=== PATIENT | female | born 1965 | race Caucasian/White ===

== ENCOUNTER → 2018-01-22 15:38 | Outpatient (CLI) | payer BC, SELFPAY ==
--- NOTE | 2018-01-22 10:00 | FLU_PTH ---
PATIENT: AGUS DESOUZA LOC: [facility] U#:[id number] AGE/SX: 59/F ROOM: RE01/22/[address]: Dr. Shyanne Rock MD : 1965 BED: DIS: SPEC #: [id number] RECD: 01/22/18 15:20 STATUS: EZIO NEENA #: [id number] STARLA: 01/22/18 10:[address]: Shyanne Rock DEPT: CYTOLOGY RECD BY: Jerman Hill Tissues: A - Thyroid gland, NOS B - Thyroid gland, NOS C - Thyroid gland, NOS Procedures: Pap Stain (control) Special Stain Group II Surgery Specimen Level IV Cell Block Cytospin Fluid Cytology Other HEADER OPERATION: Ultrasound-guided fine needle operation of bilateral thyroid PRE-OP DIAGNOSIS: Thyroid nodules TISSUE SUBMITTED: A - FNA left thyroid fluid for cytology, B - FNA left thyroid 6 slides, C - FNA right thyroid 8 slides DIAGNOSIS CYTOLOGY A. Left thyroid fluid, FNA (cytospin and cell block): Benign follicular cells noted. B. Left thyroid nodule, FNA (smears): Consistent with benign follicular nodule. Adequate for evaluation. C. Right thyroid nodule, FNA (smears): Consistent with benign follicular nodule, favor colloid nodule. Adequate for evaluation. See comment. SJ:rg 01/24/18 COMMENT Correlation with clinical, radiologic studies and appropriate follow up are necessary. Please also correlate with corresponding surgical specimen ([id number]), right thyroid nodule, needle core biopsy with diagnosis of consistent with colloid nodule. CYTOLOGY STUDY Slides are reviewed. CYTOLOGY GROSS A - Received is 80 ml of cloudy beige fluid labeled with the patient's name and and designated per the requisition as left thyroid. Submitted for cytology preparation including cell block. B - Received are six smears labeled with the patient's name and designated per the requisition as left thyroid. Submitted for staining. C - Received are eight smears labeled with the patient's name and designated per the requisition as right thyroid. Submitted for staining. / 01/23/18 TC:5 CPT: 21582, 25232, 52638 x2
--- NOTE | 2018-01-22 10:00 | THYROID_PTH ---
PATIENT: AGUS DESOUZA LOC: [facility] U#:[id number] AGE/SX: 59/F ROOM: RE01/22/[address]: Dr. Shyanne Rock MD : 1965 BED: DIS: SPEC #: [id number] RECD: 01/22/18 15:20 STATUS: EZIO NEENA #: [id number] STARLA: 01/22/18 10:[address]: Shyanne Rock DEPT: SURGICAL PATHOLOGY RECD BY: Jerman Hill Tissues: Thyroid gland, NOS Procedures: Surgery Specimen Level IV HEADER OPERATION: Ultrasound-guided fine needle aspiration of bilateral thyroid PRE-OP DIAGNOSIS: Thyroid nodules TISSUE SUBMITTED: FNA, right thyroid needle core biopsy MICROSCOPIC DIAGNOSIS Right thyroid nodule, core biopsy: Consistent with benign colloid nodule. See comment. ZURDO:mikey 01/24/18 COMMENT Correlation with clinical, radiologic findings and appropriate follow up are necessary. Please correlate with corresponding cytology ([id number]). MICROSCOPIC DESCRIPTION Slides are reviewed. GROSS DESCRIPTION Received in fixative is one container labeled with the patient's name and designated biopsy right thyroid. The specimen consists of multiple irregular fragments of perez soft tissue that in aggregate measure 1.5 x 0.1 x <0.1 cm. The specimen is totally submitted in one cassette. / SJ:rg 01/23/18 TC:5 [facility]: [id number]
== END ==
PROVIDERS: Referring Provider Surgery; Visit Provider Surgery
DX: E04.1 Nontoxic single thyroid nodule (principal)
CPT/HCPCS: 88108; 88161; 88305; 88307; 88313

== ENCOUNTER → 2023-04-07 | Outpatient (CLI) | payer OTHER, SELFPAY ==
[2023-04-07 11:12] LABS: Mucous, Urine 0 SEEN /hpf (<or=2+)
--- OUTSIDE RECORDS SUMMARY | 2023-04-07 12:20 | XMS RPT_ITS | CCD ---
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 Name Role Phone Renny VARGAS, Sylvia Primary Care Provider Kenia HEDIS MANAGER.Sherry HARMON Primary Care Provider Kenia HEDIS MANAGER.Sherry HARMON Primary Care Provider Kenia HEDIS MANAGER.Sherry HARMON Primary Care Provider Rodrigo Panchal Shun Unavailable [phone] Rahel VARGAS, Gertrudis Unavailable GERTRUDIS BANDA Attending Unavailable OLDER, CARMELITA Referring Unavailable GANTA, SYLVIA Primary Care Unavailable KENIA, SHERRY M Referring Unavailable KENIA, SHERRY M Primary Care Unavailable GANTA, SYLVIA Primary Care Unavailable OLDER, CARMELITA Attending Unavailable GANTA, SYLVIA Primary Care Unavailable OLDER, CARMELITA Referring Unavailable GANTA, SYLVIA Primary Care Unavailable OLDER, CARMELITA Referring Unavailable GANTA, SYLVIA Primary Care Unavailable KENIA, SHERRY M Primary Care Unavailable KENIA, SHERRY M Attending Unavailable KENIA, SHERRY M Primary Care Unavailable KENIA, SHERRY M Referring Unavailable KENIA, SHERRY M Primary Care Unavailable KENIA, SHERRY M Referring Unavailable KENIA, SHERRY M Primary Care Unavailable KENIA, SHERRY M Attending Unavailable Allergies Allergy Classification Reported Allergen(s) Allergy Type Date of Onset Reaction(s) Facility (14 sources) Erythromycin; Translations: [ERYTHROMYCIN] Drug Allergy 09-15-2015 [facility] (14 sources) oxaprozin; Translations: [OXAPROZIN] Drug Allergy 09-22-2015 [facility] (6 sources) Penicillins; Translations: [PENICILLINS] Drug Allergy 09-15-2015 [facility] (8 sources) Penicillins Drug Allergy 09-15-2015 [facility] Medications Completed/Discontinued Medications Medication Drug Class(es) Dates Sig (Normalized) Sig (Original) brimonidine tartrate 2 mg/ml ophthalmic solution (12 sources) alpha-Adrenergic Agonist Start: 05-25-2018 brimonidine (ALPHAGAN) 0.2 % ophthalmic solution Use as directed. 0 05/25/2018 Active Problems Active Problems Problem Classification Problem Date Documented Da te Episodic/Chronic Disorders of lipid metabolism (14 sources) Dyslipidemia; Translations: [Hyperlipidemia, unspecified] Onset: 02-02-2016 Chronic Essential hypertension (20 sources) Essential hypertension; Translations: [Essential (primary) hypertension] Onset: 09-22-2015 Chronic Glaucoma (13 sources) Glaucoma; Translations: [Unspecified glaucoma] Onset: 01-09-2018 Chronic Malaise and fatigue (1 source) Fatigue; Translations: [Other fatigue] Episodic Nutritional deficiencies (2 sources) Vitamin D deficiency; Translations: [Vitamin D deficiency, unspecified] Onset: 06-29-2021 Chronic Other connective tissue disease (2 sources) Pain in right foot; Translations: [Pain in right foot] Episodic Other nutritional; endocrine; and metabolic disorders (13 sources) Morbid obesity; Translations: [Morbid (severe) obesity due to excess calories] Onset: 10-12-2018 10-12-2018 Chronic Other nutritional; endocrine; and metabolic disorders (1 source) Morbid (severe) obesity due to excess calories; Translations: [Morbid obesity (HCC)] Onset: 10-12-2018 Chronic Other screening for suspected conditions (not mental disorders or infectious disease) (8 sources) Decreased thyroid stimulating hormone level; Translations: [Other specified abnormal findings of blood chemistry] Onset: 06-29-2021 Episodic Thyroid disorders (20 sources) Multinodular goiter; Translations: [Nontoxic multinodular goiter] Onset: 11-20-2018 Chronic Past or Other Problems Problem Classification Problem Date Documented Da te Episodic/Chronic Diabetes mellitus without complication (2 sources) Prediabetes; Translations: [Prediabetes] Onset: 06-29-2021 Episodic Immunizations and screening for infectious disease (8 sources) Viral screening status; Translations: [Encounter for screening for other viral diseases] Onset: 06-29-2021 Episodic Other connective tissue disease (1 source) Pain in right foot; Translations: [Right foot pain] Onset: 11-01-2021 Episodic Results Test Name Value Interpretation Reference Range Facil ity Vital Signs Date Time Vital Sign Value Performing Clinician Sunny sierra 05-11-2022 08:23-0500 Body height 161.3 cm Sherry Kenia HEDIS MANAGER.MANAGER TECHNOLOGY Work Phone: [facility] 05-11-2022 08:23-0500 Body temperature 98.2 [degF] Sherry Kenia HEDIS MANAGER.MANAGER TECHNOLOGY Work Phone: [facility] 05-11-2022 08:23-0500 Body weight 110.68 kg Sherry Kenia HEDIS MANAGER.MANAGER TECHNOLOGY Work Phone: [facility] 05-11-2022 08:23-0500 Diastolic blood pressure 70 mm[Hg] Sherry Kenia HEDIS MANAGER.MANAGER TECHNOLOGY Work Phone: [facility] 05-11-2022 08:23-0500 Heart rate 81 /min Sherry Kenia HEDIS MANAGER.MANAGER TECHNOLOGY Work Phone: [facility] 05-11-2022 08:23-0500 Respiratory rate 18 /min Sherry Kenia HEDIS MANAGER.MANAGER TECHNOLOGY Work Phone: [facility] 05-11-2022 08:23-0500 SaO2% (BldA) [Mass fraction] 100 % Sherry Kenia HEDIS MANAGER.MANAGER TECHNOLOGY Work Phone: [facility] 05-11-2022 08:23-0500 Systolic blood pressure 128 mm[Hg] Sherry Kenia HEDIS MANAGER.MANAGER TECHNOLOGY Work Phone: [facility] 11-01-2021 08:26-0400 Diastolic blood pressure 76 mm[Hg] Sherry Kenia HEDIS MANAGER.MANAGER TECHNOLOGY Work Phone: [facility] 11-01-2021 08:26-0400 Systolic blood pressure 120 mm[Hg] Sherry Kenia HEDIS MANAGER.MANAGER TECHNOLOGY Work Phone: [facility] 11-01-2021 07:58-0400 Body height 165.1 cm Sherry Kenia HEDIS MANAGER.MANAGER TECHNOLOGY Work Phone: [facility] 11-01-2021 07:58-0400 Body temperature 98.2 [degF] Sherry Kenia HEDIS MANAGER.MANAGER TECHNOLOGY Work Phone: [facility] 11-01-2021 07:58-0400 Body weight 108.05 kg Sherry Kenia HEDIS MANAGER.MANAGER TECHNOLOGY Work Phone: [facility] 11-01-2021 07:58-0400 Heart rate 96 /min Sherry Kenia HEDIS MANAGER.MANAGER TECHNOLOGY Work Phone: [facility] 11-01-2021 07:58-0400 Respiratory rate 18 /min Sherry Kenia HEDIS MANAGER.MANAGER TECHNOLOGY Work Phone: [facility] 11-01-2021 07:58-0400 SaO2% (BldA) [Mass fraction] 98 % Sherry Kenia HEDIS MANAGER.MANAGER TECHNOLOGY Work Phone: [facility] 08-24-2021 09:24-0400 Diastolic blood pressure 85 mm[Hg] Gertrudis Banda MD Work Phone: [facility] 08-24-2021 09:24-0400 Systolic blood pressure 123 mm[Hg] Gertrudis Banda MD Work Phone: [facility] 08-24-2021 09:02-0400 Body weight 106.59 kg Gertrudis Banda MD Work Phone: [facility] 08-24-2021 09:02-0400 Heart rate 96 /min Gertrudis Banda MD Work Phone: [facility] 08-24-2021 09:02-0400 SaO2% (BldA) [Mass fraction] 97 % Gertrudis Banda MD Work Phone: [facility] 07-08-2021 10:49-0400 Diastolic blood pressure 88 mm[Hg] Mi Nurse Work Phone: [facility] 07-08-2021 10:49-0400 Heart rate 96 /min Mi Nurse Work Phone: [facility] 07-08-2021 10:49-0400 Systolic blood pressure 128 mm[Hg] Mi Nurse Work Phone: [facility] 06-23-2021 14:56-0400 Body weight 106.59 kg Carmelita Older HEDIS MANAGER.MANAGER TECHNOLOGY Work Phone: [facility] 06-23-2021 14:56-0400 Diastolic blood pressure 76 mm[Hg] Carmelita Older HEDIS MANAGER.MANAGER TECHNOLOGY Work Phone: [facility] 06-23-2021 14:56-0400 Heart rate 84 /min Carmelita Older HEDIS MANAGER.MANAGER TECHNOLOGY Work Phone: [facility] 06-23-2021 14:56-0400 Respiratory rate 16 /min Carmelita HEDIS MANAGER.MANAGER TECHNOLOGY Work Phone: [facility] 06-23-2021 14:56-0400 Systolic blood pressure 128 mm[Hg] Carmelita Older HEDIS MANAGER.MANAGER TECHNOLOGY Work Phone: [facility] Encounters Encounter Date Encounter Type Care Provider Facility Start: 05-11-2022 End: 05-11-2022 ambulatory SHERRY AQUINO Facility:[facility] Start: 05-11-2022 Encounter for genera l adult medical examination without abnormal findings SHERRY AQUINO [facility] Start: 05-11-2022 End: 05-11-2022 Patient encounter procedure Sherry Aquino HEDIS MANAGER.MANAGER TECHNOLOGY Work Phone: [facility] Procedures Date Procedure Procedure Detail Performing Clinician Start: 05-11-2022 PFIZER-BIONTECH COVI D-19 BIVALENT BOOSTER VACCINE, AGE 12+ YR Sherry Aquino HEDIS MANAGER.MANAGER TECHNOLOGY Work Phone: Start: 05-09-2022 Mammography Sherry davis HEDIS MANAGER.MANAGER TECHNOLOGY Work Phone: Start: 11-01-2021 Radex foot complete minimum 3 views Sherry Aquino HEDIS MANAGER.MANAGER TECHNOLOGY Work Phone: Start: 11-01-2021 Regalister COVI D-19 VACCINE, AGE 12+ YR (DUKES TOP) Sherry Aquino HEDIS MANAGER.MANAGER TECHNOLOGY Work Phone: Start: 11-11-2020 Adult depression scr eening assessment Carmelita Older HEDIS MANAGER.MANAGER TECHNOLOGY Work Phone: Start: 11-09-2020 Mammography Carmelita Older HEDIS MANAGER.MANAGER TECHNOLOGY Work Phone: Plan of Treatment Date Care Activity Detail Author Start: 06-24-2031 Urine microalbumin profile DTA P,TDAP,TD (2 - Td or Tdap) [facility] Start: 04-25-2027 LIPID SCREEN LIPID SCREEN [facility] Start: 06-29-2026 LIPID SCREEN LIPID SCREEN [facility] Start: 04-25-2025 DIABETES SCREEN DIABETES SCREEN [facility] Start: 08-04-2024 LIPID SCREEN LIPID SCREEN [facility] Start: 06-29-2024 DIABETES SCREEN DIABETES SCREEN [facility] Start: 05-11-2023 ANNUAL PCP TEAM TRUCK DRIVING INSTRUCTOR OMARI DISEASE VISIT ANNUAL PCP TEAM CHRONIC DISEASE VISIT [facility] Start: 05-11-2023 BP CONTROLLED (<130/80) BP CONTROLLE D (<130/80) [facility] Start: 05-09-2023 Mammography MAMMOGRAM [facility] Start: 01-16-2023 HPV TESTING HPV TESTING [facility] Start: 01-16-2023 PAP TESTING PAP TESTING [facility] Start: 11-01-2022 ANNUAL PCP TEAM TRUCK DRIVING INSTRUCTOR OMARI DISEASE VISIT ANNUAL PCP TEAM CHRONIC DISEASE VISIT [facility] Start: 11-01-2022 BP CONTROLLED (<130/80) BP CONTROLLE D (<130/80) [facility] Start: 08-04-2022 DIABETES SCREEN DIABETES SCREEN [facility] Start: 06-29-2022 COLORECTAL CANCER SCREENING COLORECTAL CANCER SCREENING [facility] Start: 06-29-2022 FECAL OCCULT BLOOD FECAL OCCULT BLOO D [facility] Start: 06-23-2022 ANNUAL PCP TEAM TRUCK DRIVING INSTRUCTOR OMARI DISEASE VISIT ANNUAL PCP TEAM CHRONIC DISEASE VISIT [facility] Start: 06-23-2022 BP CONTROLLED (<130/80) BP CONTROLLE D (<130/80) [facility] Start: 06-23-2022 SHINGRIX VACCINE (1 of 2) COPE GRIX VACCINE (1 of 2) [facility] Immunizations Immunization Date Immunization Notes Care Provider Aren porter 05-11-2022 COVID-19 booster vaccine, age 12+ yr, bivalent (PFIZER-BIONTECH) Sherry Kenia HEDIS MANAGER.MANAGER TECHNOLOGY Work Phone: [facility] 01-15-2022 influenza, injectabl e, quadrivalent, contains preservative Sherry Kenia HEDIS MANAGER.MANAGER TECHNOLOGY Work Phone: [facility] 11-01-2021 COVID-19 vaccine, ag e 12+ yr (PFIZER-BIONTECH - DUKES TOP) Sherry Kenia HEDIS MANAGER.MANAGER TECHNOLOGY Work Phone: [facility] 06-23-2021 tetanus toxoid, redu ganesh diphtheria toxoid, and acellular pertussis vaccine, adsorbed Carmelita Older HEDIS MANAGER.MANAGER TECHNOLOGY Work Phone: [facility] 05-08-2020 COVID-19 vaccine, fu ll dose (MODERNA) Carmelita Older HEDIS MANAGER.MANAGER TECHNOLOGY Work Phone: [facility] 04-10-2019 COVID-19 vaccine, fu ll dose (MODERNA) Carmelita Older HEDIS MANAGER.MANAGER TECHNOLOGY Work Phone: [facility] Payers Date Payer Category Payer Unknown [id number] 2022 Unknown [id number] 2018 Private Health Insurance [facility] CHOICE PLUS [id number] 2018-Present [phone] [address] [place] [address] O [id number] 2018 Private Health Insurance [facility] CHOICE PLUS [id number] 2018-Present [phone] [address] [place] [address] O [id number] 2018 Unknown [id number] Social History Date Type Detail Facility Start: 09-15-2015 End: 01-22-2018 Tobacco smoking status NHIS Ex-smoker [facility] Work Phone: End: 01-22-1993 History of tobacco use Current smoker [facility] Work Phone: Start: 09-15-2015 End: 01-22-2018 Tobacco use and exposure Smokeless tobacco non-user [facility] Work Phone: Start: 06-23-2021 End: 05-11-2022 Alcohol intake Current drinker of alcohol (finding) [facility] Start: 11-11-2020 End: 06-22-2021 History SDOH Alcohol Frequency 2 [facility] Start: 11-11-2020 End: 06-22-2021 History SDOH Alcohol Std Drinks 1 [facility] Start: 09-15-2015 History SDOH Alcohol Comment Rarely [facility] Start: 11-11-2020 History SDOH Social Connections Phone 5 [facility] Start: 11-11-2020 History SDOH Social Connections [facility] 3 [facility] Start: 05-12-2019 Education 12 [facility] Start: 1965 Sex Assigned At Not on file [facility] Start: 08-14-2021 End: 11-01-2021 Exposure to SARS-CoV-2 (event) Not sure [facility] End: 01-22-1993 History of tobacco use Cigarette Smoker [facility] Clinical Notes 06-11-2021 to 05-11-2022 Patient InstructionsChaglen Aquino APRN.MANAGER TECHNOLOGY - 05/11/2022 8:48 AM ESTTelephone Encounter - Elle Melendez MA - 05/10/2022 3:13 PM ESTTelephone Encounter - Elle Melendez MA - 05/10/2022 3:11 PM EST Note Date & Type Note Facility 05-11-2022 Note HNO ID: [id number] Author: Sherry Aquino APRN.MANAGER TECHNOLOGY Service: ? Author Type: Nurse Practitioner Type: Progress Notes Filed: 05/11/2022 12:43 PM Note Text: SUBJECTIVE: Agus Gutierrez is a 56 year old female who presents for Wellness exam PMH HTN, HLD, glaucoma, subclinical hyperthyroidism. Patient denies changes in health since last office visit. Reports feeling well. Denies concerns or complaints today. I reviewed her past medical, surgical, social, and family histories today and updated chart. Allergies, chronic medications, and supplements were also reviewed and her list is now up to date. HTN: Ms. Gutierrez indicates that she is feeling well and denies any symptoms referable to elevated blood pressure. Specifically denies headache, chest pain, palpitations, dyspnea, peripheral edema, claudication symptoms, orthopnea, fatigue, and PND. Patient denies any side effects of her medication(s) and is compliant with their regimen. She does check BP's away from this office with average BP's in the 130-140s/60-90s range. Agus works out regularly 3 times per week with Yoga. She watches her diet for sodium, low fat and low cholesterol some of the time. She is taking HCTZ 12.5 mg and lisinopril 40 mg daily. Last 3 Encounter BP Readings: Date: BP: 05/11/2022 128/70 11/01/2021 120/76 08/24/2021 123/85 Glaucoma: she is seeing opth Dr Panchal in [place] every 3 months. She is taking her eye drops daily. Hyperthyroid and thyroid nodules: she has seen endo for this. She did see Dr Banda 08/24/22. She had FNA fall 2017 which was benign. Repeat US was ordered but never completed. She was to follow up in 3 months and never did. Preventative. She would like her COVID booster today. She is up to date with her mammogram. She has never had a colonoscopy and does not want one. She was agreeable to cologuard. PAST MEDICAL HISTORY Diagnosis Date Disorder of thyroid Glaucoma Herniated lumbar disc without myelopathy Hypertension PAST SURGICAL HISTORY Procedure Laterality Date LAMINECTOMY W/O FFD 04/04 VERT SEG LUMBAR 1991 Laminectomy, lumbar S PROBE PERC LUMBAR DISCECTOMY 1991 Social History Tobacco Use Smoking status: Former Types: Cigarettes Quit date: 01/22/1993 Years since quittin.3 Smokeless tobacco: Never Vaping Use Vaping Use: Never used Substance Use Topics Alcohol use: Yes Comment: Rarely Drug use: No Family history reviewed. ALLERGIES Allergen Reactions Daypro [Oxaprozin] Hives Erythromycin Hives Penicillins Hives Current Outpatient Medications Medication Sig hydroCHLOROthiazide (HYDRODIURIL, ESIDRIX) 12.5 mg capsule Take 1 capsule by mouth once daily. lisinopril (ZESTRIL, PRINIVIL) 40 mg tablet Take 1 tablet by mouth once daily. brimonidine (ALPHAGAN) 0.2 % ophthalmic solution Use as directed. timolol maleate (TIMOPTIC) 0.25 % ophthalmic solution Use as directed latanoprost (XALATAN) 0.005 % ophthalmic solution Use 1 Drop in both eyes daily at bedtime. TO AFFECTED EYE(S) No current facility-administered medications for this visit. Review of Systems Constitutional: Negative for chills, diaphoresis, fever, malaise/fatigue and weight loss. HENT: Negative. Negative for congestion, ear pain, sore throat and tinnitus. Eyes: Negative for blurred vision, double vision, photophobia and pain. Respiratory: Negative for cough, sputum production, shortness of breath and wheezing. Cardiovascular: Negative for chest pain, palpitations, orthopnea and leg swelling. Gastrointestinal: Negative for abdominal pain, blood in stool, constipation, diarrhea, heartburn, melena, nausea and vomiting. Genitourinary: Negative for dysuria, frequency, hematuria and urgency. Musculoskeletal: Negative for back pain, falls, joint pain, myalgias and neck pain. Skin: Negative for itching and rash. Neurological: Negative for dizziness, tingling, tremors, sensory change, speech change, focal weakness, weakness and headaches. Endo/Heme/Allergies: Negative for environmental allergies and polydipsia. Does not bruise/bleed easily. Psychiatric/Behavioral: Negative for depression and substance abuse. The patient is not nervous/anxious and does not have insomnia. BP 128/70 Pulse 81 Temp (Src) 98.2 (Oral) Resp 18 Ht 5' 3.5 (1.61m) Wt 244 lb (110.7kg) SpO2 100% BMI 42.54 kg/(m2). Physical Exam Vitals and nursing note reviewed. Constitutional: General: She is not in acute distress. Appearance: Normal appearance. She is not diaphoretic. HENT: Head: Normocephalic and atraumatic. Right Ear: External ear normal. Left Ear: External ear normal. Nose: Nose normal. Mouth/Throat: Pharynx: No oropharyngeal exudate. Eyes: General: Lids are normal. No scleral icterus. Right eye: No discharge. Left eye: No discharge. Conjunctiva/sclera: Conjunctivae normal. Pupils: Pupils are equal, round, and reactive to light. Neck: Vascular: N (more content not included)... [facility] 05-11-2022 Instructions Sherry Aquino APRN.MANAGER TECHNOLOGY - 05/11/2022 9:20 AM EST ASSESSMENT/PLAN: 1. Wellness examination - ICD9: V70.0, ICD10: Z00.00 (primary diagnosis) - Counseled on healthy diet and regular exercise - Calcium intake with supplements or by diet of 1000 mg/day for under 50, 2364-2454 mg/day for 50+ - Discussed need and benefit for weight loss. BMI 42.54 kg/(m^2) - Colorectal cancer screening recommended - agrees to Cologuard - Depression screening tool completed and reviewed with patient. Based on score and interview, patient is not at risk for depression and recommended no further intervention at this time. - Follow up for annual exam in one year 2. Essential hypertension with goal blood pressure less than 140/90 - ICD9: 401.9, ICD10: I10 - good control - Continue current medication(s) - Encouraged dietary sodium restriction/DASH diet - Recommended regular aerobic exercise. - Recommend home blood pressure monitoring, to bring results in on next visit - Discussed need and benefit for weight loss. - Reviewed risks of HTN and principles of treatment - Goal of BP <130/80 - Recommended no refined sugar, low refined starch, healthy oil intake (olive oil), healthy protein (fish) along the lines of the Mediterranean diet. 3. Multiple thyroid nodules - ICD9: 241.1, ICD10: E04.2 - Chronic, follow up for testing as ordered by Dr Banda. Call and follow up with dr Banda. 4. Subclinical hyperthyroidism - ICD9: 242.90, ICD10: E05.90 - See above 5. Encounter for immunization - ICD9: V03.89, ICD10: Z23 - PFIZER-BIONTECH COVID-19 BIVALENT BOOSTER VACCINE, AGE 12+ YR - given today in office 6. Colon cancer screening - ICD9: V76.51, ICD10: Z12.11 - COLOGUARD Sherry M Kenia, HEDIS MANAGER.MANAGER TECHNOLOGY documented in this encounter [facility] 05-11-2022 History of Present illness Narrative SUBJECTIVE: Agus Gutierrez is a 56 year old female who presents for Wellness exam PM HTN, HLD, glaucoma, subclinical hyperthyroidism. Patient denies changes in health since last office visit. Reports feeling well. Denies concerns or complaints today. I reviewed her past medical, surgical, social, and family histories today and updated chart. Allergies, chronic medications, and supplements were also reviewed and her list is now up to date. HTN: Ms. Gutierrez indicates that she is feeling well and denies any symptoms referable to elevated blood pressure. Specifically denies headache, chest pain, palpitations, dyspnea, peripheral edema, claudication symptoms, orthopnea, fatigue, and PND. Patient denies any side effects of her medication(s) and is compliant with their regimen. She does check BP's away from this office with average BP's in the 130-140s/60-90s range. Agus works out regularly 3 times per week with Yoga. She watches her diet for sodium, low fat and low cholesterol some of the time. She is taking HCTZ 12.5 mg and lisinopril 40 mg daily. Last 3 Encounter BP Readings: Date: BP: 05/11/2022 128/70 11/01/2021 120/76 08/24/2021 123/85 Glaucoma: she is seeing opth Dr Panchal in [place] every 3 months. She is taking her eye drops daily. Hyperthyroid and thyroid nodules: she has seen endo for this. She did see Dr Banda 08/24/22. She had FNA fall 2017 which was benign. Repeat US was ordered but never completed. She was to follow up in 3 months and never did. Preventative. She would like her COVID booster today. She is up to date with her mammogram. She has never had a colonoscopy and does not want one. She was agreeable to rudi. PAST MEDICAL HISTORY Diagnosis Date Disorder of thyroid Glaucoma Herniated lumbar disc without myelopathy Hypertension PAST SURGICAL HISTORY Procedure Laterality Date LAMINECTOMY W/O FFD 04/04 VERT SEG LUMBAR 1991 Laminectomy, lumbar S PROBE PERC LUMBAR DISCECTOMY 1991 Social History Tobacco Use Smoking status: Former Types: Cigarettes Quit date: 01/22/1993 Years since quittin.3 Smokeless tobacco: Never Vaping Use Vaping Use: Never used Substance Use Topics Alcohol use: Yes Comment: Rarely Drug use: No Family history reviewed. ALLERGIES Allergen Reactions Daypro [Oxaprozin] Hives Erythromycin Hives Penicillins Hives Current Outpatient Medications Medication Sig hydroCHLOROthiazide (HYDRODIURIL, ESIDRIX) 12.5 mg capsule Take 1 capsule by mouth once daily. lisinopril (ZESTRIL, PRINIVIL) 40 mg tablet Take 1 tablet by mouth once daily. brimonidine (ALPHAGAN) 0.2 % ophthalmic solution Use as directed. timolol maleate (TIMOPTIC) 0.25 % ophthalmic solution Use as directed latanoprost (XALATAN) 0.005 % ophthalmic solution Use 1 Drop in both eyes daily at bedtime. TO AFFECTED EYE(S) No current facility-administered medications for this visit. Review of Systems Constitutional: Negative for chills, diaphoresis, fever, malaise/fatigue and weight loss. HENT: Negative. Negative for congestion, ear pain, sore throat and tinnitus. Eyes: Negative for blurred vision, double vision, photophobia and pain. Respiratory: Negative for cough, sputum production, shortness of breath and wheezing. Cardiovascular: Negative for chest pain, palpitations, orthopnea and leg swelling. Gastrointestinal: Negative for abdominal pain, blood in stool, constipation, diarrhea, heartburn, melena, nausea and vomiting. Genitourinary: Negative for dysuria, frequency, hematuria and urgency. Musculoskeletal: Negative for back pain, falls, joint pain, myalgias and neck pain. Skin: Negative for itching and rash. Neurological: Negative for dizziness, tingling, tremors, sensory change, speech change, focal weakness, weakness and headaches. Endo/Heme/Allergies: Negative for environmental allergies and polydipsia. Does not bruise/bleed easily. Psychiatric/Behavioral: Negative for depression and substance abuse. The patient is not nervous/anxious and does not have insomnia. BP 128/70 Pulse 81 Temp (Src) 98.2 (Oral) Resp 18 Ht 5' 3.5 (1.61m) Wt 244 lb (110.7kg) SpO2 100% BMI 42.54 kg/(m^2). Physical Exam Vitals and nursing note reviewed. Constitutional: General: She is not in acute distress. Appearance: Normal appearance. She is not diaphoretic. HENT: Head: Normocephalic and atraumatic. Right Ear: External ear normal. Left Ear: External ear normal. Nose: Nose normal. Mouth/Throat: Pharynx: No oropharyngeal exudate. Eyes: General: Lids are normal. No scleral icterus. Right eye: No discharge. Left eye: No discharge. Conjunctiva/sclera: Conjunctivae normal. Pupils: Pupils are equal, round, and reactive to light. Neck: Vascular: Normal carotid pulses. No carotid bruit. Cardiovascular: Rate and Rhythm: Normal rate and regular rhythm. Pulses: Normal pulses. Heart sounds: Normal heart sounds, S1 normal and S2 normal. No murmur heard. No friction rub. No gallop. Pulmonary: Effort: Pulmonary effort is normal. No accessory muscle usage or respiratory distress. Breath sounds: Normal breath sounds. No decreased breath sounds, wheezing, rhonchi or rales. Chest: Chest wall: No tenderness. Abdominal: General: Bowel sounds are normal. There is no distension. Palpations: Abdomen is soft. Tenderness: There is no abdominal tenderness. Musculoskeletal: General: No tenderness. Normal range of motion. Cervical back: Normal range of motion and neck supple. Skin: General: Skin is warm and dry. Coloration: Skin is not pale. Findings: No erythema or rash. Nails: There is no clubbing. Neurological: Mental Status: She is alert and oriented to person, place, and time. Sensory: Sensation is intact. Motor: Motor function is intact. No abnormal muscle tone. Coordination: Coordination normal. Gait: Gait is intact. Deep Tendon Reflexes: Reflexes are normal and symmetric. Psychiatric: Mood and Affect: Mood and affect normal. Behavior: Behavior normal. Thought Content: Thought content normal. Cognition and Memory: Memory normal. Judgment: Judgment normal. Component Latest Ref Rng & Units 04/25/2022 Glucose 74 - 99 mg/dL 110 (H) BUN 7 - 21 mg/dL 17 Creatinine 0.58 - 0.96 mg/dL 0.81 Sodium 136 - 144 mmol/L 138 Potassium 3.7 - 5.1 mmol/L 4.4 Chloride 97 - 105 mmol/L 101 CO2 22 - 30 mmol/L 29 Anion Gap 9 - 18 mmol/L 8 (L) Calcium 8.5 - 10.2 mg/dL 9.9 eGFR >=60 mL/min/1.73m 84 Cholesterol, Total <200 mg/dL 210 (H) Triglyceride <150 mg/dL 113 HDL Cholesterol >39 mg/dL 55 Non HDL Cholesterol <130 mg/dL 155 (H) Fasting Time hrs 10 VLDL Cholesterol <30 mg/dL 23 TC:HDL Ratio <5.10 3.82 LDL Cholesterol <100 mg/dL 132 (H) LDL:HDL Ratio <2.54 2.40 Hemoglobin A1C 4.3 - 5.6 % 6.2 (H) Estimated Average Glucose mg/dL 131 TSH 0.270 - 4.200 mIU/L <0.005 (L) ASSESSMENT/PLAN: 1. Wellness examination - ICD9: V70.0, ICD10: Z00.00 (primary diagnosis) - Counseled on healthy diet and regular exercise - Calcium intake with supplements or by diet of 1000 mg/day for under 50, 2134-4294 mg/day for 50+ - Discussed need and benefit for weight loss. BMI 42.54 kg/(m^2) - Colorectal cancer screening recommended - agrees to Cologuard - Depression screening tool completed and reviewed with patient. Based on score and interview, patient is not at risk for depression and recommended no further intervention at this time. - Follow up for annual exam in one year 2. Essential hypertension with goal blood pressure less than 140/90 - ICD9: 401.9, ICD10: I10 - good control - Continue current medication(s) - Encouraged dietary sodium restriction/DASH diet - Recommended regular aerobic exercise. - Recommend home blood pressure monitoring, to bring results in on next visit - Discussed need and benefit for weight loss. - Reviewed risks of HTN and principles of treatment - Goal of BP <130/80 - Recommended no refined sugar, low refined starch, healthy oil intake (olive oil), healthy protein (fish) along the lines of the Mediterranean diet. 3. Multiple thyroid nodules - ICD9: 241.1, ICD10: E04.2 - Chronic, follow up for testing as ordered by Dr Banda. Call and follow up with Dr Banda. - numbers given to patient to call and schedule 4. Subclinical hyperthyroidism - ICD9: 242.90, ICD10: E05.90 - See above 5. Encounter for immunization - ICD9: V03.89, ICD10: Z23 - [employer] COVID-19 BIVALENT BOOSTER VACCINE, AGE 12+ YR - given today in office 6. Colon cancer screening - ICD9: V76.51, ICD10: Z12.11 - declines colonoscopy, agrees to cologuard - COLOGUARD Sherry Aquino APRN.MANAGER TECHNOLOGY documented in this encounter [facility] 05-10-2022 Miscellaneous Notes Called pt left VM with results Elle Melendez MA ----- Message from Sherry Aquino APRN.MANAGER TECHNOLOGY sent at 05/10/2022 1:42 PM EST ----- Mammogram negative IMPRESSION IMPRESSION: NEGATIVE There is no mammographic evidence of malignancy. A 1 year screening mammogram is recommended. documented in this encounter [facility] 05-09-2022 Note HNO ID: [id number] Author: RT Ferdinand(R) Service: ? Author Type: Technologist Type: Progress Notes Filed: 05/09/2022 8:17 AM Note Text: Radiology Service Progress Note PATIENT NAME: Agus Gutierrez DATE OF SERVICE: May 09, 2022 TIME: 8:17 AM PATIENT IDENTITY VERIFICATION COMPLETED USING TWO (2) IDENTIFIERS: Name and Date of confirmed by patient verbally. FALL SCREENING: Has the patient had 2 falls in the last year or 1 fall with injury or currently using an Ambulatory Assistive Device (Walker, Cane, Wheelchair, Crutches, etc.)? No PATIENT GENDER DATA: Female. status: : No status: NO. PATIENT RELEVANT IMPLANT DATA REVIEWED: Not Applicable RADIOLOGY DEPARTMENT: Mammography PERIPHERAL IV DATA: Not applicable SIGNED BY: RT Ferdinand(R) May 09, 2022 8:[address] [facility] 04-27-2022 Miscellaneous Notes Called pt let her know the results and for her to f/u with Dr. Banda recommended she send her a my chart message Elle Melendez MA Called pt left VM for her to call the office for her lab results Elle Melendez MA ----- Message from Sherry Aquino APRN.MANAGER TECHNOLOGY sent at 04/26/2022 7:06 AM EST ----- HGB A1C has increased. Still prediabetic but borderline diabetic now. Please review diet with pt and importance of exercise, wt loss, decrease portions sizes etc to slow progression to diabetes ----- Message from Sherry Aquino APRN.MANAGER TECHNOLOGY sent at 04/25/2022 12:30 PM EST ----- BMP stable. Creatinine wnl Lipids- TC and LDL remain slighlty elevated but improved from last year Tsh is still very low. Follow up with Dr Banad. documented in this encounter [facility] 04-19-2022 Note Patient Outreach (AG ACM) AGUS GUTIERREZ ([id number]) 1965 F Date Time Provider Department 04/19/22 SHERRY AQUINO During your visit today, we recorded the following information about you: Allergies As of Date: 04/19/2022 Noted Allergy Reaction DAYPRO (OXAPROZIN) 09/22/2015 4 - Hives ERYTHROMYCIN 09/15/2015 4 - Hives PENICILLINS 09/15/2015 4 - Hives Date Reviewed: 11/01/2021 Reviewed by: Sherry Aquino APRN.MANAGER TECHNOLOGY - Fully Assessed Visit Diagnoses:Essential hypertension with goal blood pressure less than 140/90 [I10] Morbid obesity (HCC) [E66.01] Subclinical hyperthyroidism [E05.90] Order(s):BASIC METABOLIC PNL [SQBMP] Order #: [id number] FUTURE HGB A1C [WDHKA5D] Order #: [id number] FUTURE LIPID PANEL BASIC [SQLIPB] Order #: [id number] FUTURE TSH BLD [SQTSH] Order #: [id number] FUTURE SCHEDULE LAB TESTING [[id number]] Order #: [id number] FUTURE Prescriptions as of 04/22/2022 - hydroCHLOROthiazide (HYDRODIURIL, ESIDRIX) 12.5 mg capsule Take 1 capsule by mouth once daily. - lisinopril (ZESTRIL, PRINIVIL) 40 mg tablet Take 1 tablet by mouth once daily. - brimonidine (ALPHAGAN) 0.2 % ophthalmic solution Use as directed. - timolol maleate (TIMOPTIC) 0.25 % ophthalmic solution Use as directed - latanoprost (XALATAN) 0.005 % ophthalmic solution Use 1 Drop in both eyes daily at bedtime. TO AFFECTED EYE(S) Problem List As Of Date 04/19/2022 Noted Resolved Essential hypertension with goal blood pressure*09/22/2015 Dyslipidemia [E78.5] 02/02/2016 Other specified glaucoma [H40.89] 01/09/2018 Morbid obesity (HCC) [E66.01] 10/12/2018 Subclinical hyperthyroidism [E05.90] 11/20/2018 Multiple thyroid nodules [E04.2] 11/20/2018 Encounter Status:Closed by SOFIA MCCRAY on 04/22/22 [facility] 02-03-2022 Miscellaneous Notes Last O V11/01/21 Apt 05/04/22 Labs 06/29/21 Patient phones requesting refills as follows: Requested Prescriptions Pending Prescriptions Disp Refills hydroCHLOROthiazide (HYDRODIURIL, ESIDRIX) 12.5 mg capsule 90 capsule 3 Sig: Take 1 capsule by mouth once daily. lisinopril (ZESTRIL, PRINIVIL) 40 mg tablet 90 tablet 3 Sig: Take 1 tablet by mouth once daily. Please review and advise. Elle Melendez MA documented in this encounter [facility] 11-08-2021 Miscellaneous Notes Patient is informed. Crista Neely MA ----- Message from Sherry Aquino APRN.MANAGER TECHNOLOGY sent at 11/04/2021 8:54 AM EDT ----- No fractures, mild arthritis No heel spurs identified. Most likely planter fasciitis as we discussed. Poc as we discussed at ov documented in this encounter [facility] 11-01-2021 Note HNO ID: [id number] Author: Sherry Aquino APRN.MANAGER TECHNOLOGY Service: ? Author Type: Nurse Practitioner Type: Progress Notes Filed: 11/01/2021 9:14 AM Note Text: SUBJECTIVE: Agus Gutierrez is a 55 year old female who presents to establish care and complaints of foot pain. PMH HTN, thyroid nodules. Reports previous PCP Dr Lwason. Foot pain: reports chronic right foot pain. Reports started about one month ago. Pain started lateral side and now is in center towards. Heel. Reports pain only with weight bearing. No pain when sitting or not on her feet. Reports worse when she first stands up. States eases after several steps but continues as a dull ache all day. Reports when first stands it is more intense dull pain. She reports she has been using compression sleeve. She reports taking aleve or ibuprofen as needed. States she will take ibuprofen 3 tabs 1-2x/day. Reports this does help but does not completely resolve pain. Reports worse pain 7/10, best 0/10. Reports she had right foot pain about 15 yrs ago and was told she had heel spurs. Reports chronic off and on she would have pain that would hurt but would improved as she walked on it more. HTN: Ms. Gutierrez indicates that she is feeling well and denies any symptoms referable to elevated blood pressure. Specifically denies headache, chest pain, palpitations, dyspnea, peripheral edema, claudication symptoms, orthopnea, fatigue and PND. Patient denies any side effects of her medication(s) and is compliant with their regimen. She does not check BP's generally. Agus denies regular aerobic exercise. She watches her diet for sodium, low fat and low cholesterol some of the time. She is taking HCTZ 12.5 mg daily and lisinopril 40 mg daily. Last 3 Encounter BP Readings: Date: BP: 11/01/2021 120/76 08/24/2021 123/85 07/08/2021 128/88 Thyroid nodules, subclinical hyperthyroidism: she is seeing Dr Banda for management. She had FNA in fall 2017 which was benign. Preventative: She has had 2 COVID vaccines. She is interested in her booster today. She is due for her mammogram. PAST MEDICAL HISTORY Diagnosis Date - Disorder of thyroid - Glaucoma - Herniated lumbar disc without myelopathy - Hypertension PAST SURGICAL HISTORY Procedure Laterality Date - LAMINECTOMY W/O FFD 1/2 VERT SEG LUMBAR 1991 Laminectomy, lumbar - S PROBE PERC LUMBAR DISCECTOMY 1991 Social History Tobacco Use - Smoking status: Former Smoker Quit date: 01/22/1993 Years since quittin.7 - Smokeless tobacco: Never Used Vaping Use - Vaping Use: Never used Substance Use Topics - Alcohol use: Yes Comment: Rarely - Drug use: No Family history reviewed. ALLERGIES Allergen Reactions - Daypro [Oxaprozin] Hives - Erythromycin Hives - Penicillins Hives Current Outpatient Medications Medication Sig - hydroCHLOROthiazide 12.5 mg capsule Take 1 capsule by mouth once daily. - lisinopril (ZESTRIL, PRINIVIL) 40 mg tablet Take 1 tablet by mouth once daily. - brimonidine (ALPHAGAN) 0.2 % ophthalmic solution Use as directed. - timolol maleate (TIMOPTIC) 0.25 % ophthalmic solution Use as directed - latanoprost (XALATAN) 0.005 % ophthalmic solution Use 1 Drop in both eyes daily at bedtime. TO AFFECTED EYE(S) No current facility-administered medications for this visit. Review of Systems Constitutional: Negative for chills, diaphoresis, fever, malaise/fatigue and weight loss. Respiratory: Negative for cough, shortness of breath and wheezing. Cardiovascular: Negative for chest pain, palpitations and leg swelling. Gastrointestinal: Negative for abdominal pain, diarrhea, nausea and vomiting. Musculoskeletal: Positive for joint pain. Negative for back pain, myalgias and neck pain. See HPI Neurological: Negative for dizziness and headaches. Psychiatric/Behavioral: Negative for depression, substance abuse and suicidal ideas. The patient is not nervous/anxious and does not have insomnia. BP 120/76 Pulse 96 Temp (Src) 98.2 (Oral) Resp 18 Ht 5' 5 (1.65m) Wt 238 lb 3.2 oz (108.0kg) SpO2 98% BMI 39.64 kg/(m2). Physical Exam Vitals and nursing note reviewed. Constitutional: General: She is not in acute distress. Appearance: Normal appearance. She is obese. She is not ill-appearing. HENT: Head: Normocephalic and atraumatic. Cardiovascular: Rate and Rhythm: Normal rate and regular rhythm. Pulses: Normal pulses. Dorsalis pedis pulses are 2+ on the right side. Posterior tibial pulses are 2+ on the right side. Heart sounds: Normal heart sounds, S1 normal and S2 normal. No murmur heard. Pulmonary: Effort: Pulmonary effort is normal. Breath sounds: Normal breath sounds. Musculoskeletal: Right lower leg: No edema. Left lower leg: No edema. Right foot: Normal range of motion. No deformity or bunion. Feet: Feet: Right foot: Skin integrity: Skin integrity normal. Toenail Condition: Right toenails are normal. Le (more content not included)... [facility] 11-01-2021 Instructions Sherry Aquino APRN.[facility] - 11/01/2021 9:03 AM EDT ASSESSMENT/PLAN: 1. Right foot pain - ICD9: 729.5, ICD10: M79.671 (primary diagnosis) - Acute, on chronic, probable plantar fasciitis versus heel spur. Will check xray today. Referral to podiatry for further management. - recommend starting aleve otc 2 tabs twice daily with food. Ice 20 min 4-5 x/day. See taping videos and exercise handout - XR FOOT GENERAL 3V AP/LAT/OBL RIGHT - CONSULT TO PODIATRY 2. Essential hypertension with goal blood pressure less than 140/90 - ICD9: 401.9, ICD10: I10 - good control - Continue current medication(s) - Encouraged dietary sodium restriction/DASH diet - Recommended regular aerobic exercise. - Recommend home blood pressure monitoring, to bring results in on next visit - Discussed need and benefit for weight loss. - Reviewed risks of HTN and principles of treatment - Goal of BP <130/80 - Recommend home or pharmacy blood pressure monitoring 3. Encounter for immunization - ICD9: V03.89, ICD10: Z23 - [employer] COVID-19 VACCINE, AGE 12+ YR ([place]ES TOP) 4. Encounter for screening mammogram for malignant neoplasm of breast - ICD9: V76.12, ICD10: Z12.31 - [facility] SCREENING Sherry Aquino, HEDIS MANAGER.MANAGER TECHNOLOGY Plantar Fasciitis What is plantar fasciitis? Plantar fasciitis is painful irritation of the tissue on the bottom of your foot between the ball of the foot and the heel. This tough tissue that supports the arch of your foot is called fascia. What is the cause? Plantar fasciitis can be caused by a number of things, like: A lot of running, jumping, walking, or stair-climbing Wearing high heels for long periods of time Gaining weight If you are a runner, you may get plantar fasciitis when you start running further during each workout or if you run more often. It can also happen if you start running on a different surface or in different terrain, or if your shoes are worn out and don't give enough cushioning for your heels. If you wear high-heeled shoes, including western-style boots, the fascia can get shorter. You may then have pain when you stretch the fascia. This painful stretching might happen, for example, when you walk barefoot after getting out of bed in the morning. If you gain weight, you may put more stress on your feet, especially if you walk a lot or river boat captain shoes with poor cushioning. If the arches of your foot are unusually high or low, you are more likely to develop plantar fasciitis than if your arches are normal. What are the symptoms? The main symptom of plantar fasciitis is heel pain when you walk. You may also feel pain when you stand and possibly even when you are resting. This pain typically occurs first thing in the morning when you get out of bed and put your foot flat on the floor, stretching the fascia. The pain may lessen after you have been up for a while and walking, but then the pain may come back after you have been resting. You may not have any pain when you are sleeping because the position of your feet during rest allows the fascia to shorten and relax. How is it diagnosed? Your healthcare provider will ask about your symptoms, activities, and medical history and examine your foot and ankle. You may have an X-ray of your heel. How is it treated? Give your painful heel lots of rest. You will need to change or stop doing the activities that cause pain until your foot has healed. You may need to stay completely off your foot for several days when the pain is severe. Your healthcare provider may recommend stretching and strengthening exercises to help you heal. Exercises to make the foot stronger and to stretch the fascia are very important. Your healthcare provider may recommend shoe inserts called arch supports or orthotics. You can buy them at a pharmacy or athletic shoe store or they can be custom made. Make sure the arch supports are firm. If you can easily bend them in half, they may be too flexible. These supports can be particularly helpful if you have flat feet or high arches. Wearing athletic shoes or heel cushions in both shoes may also help. Cushions are most helpful if you are overweight or an older adult. A night splint may help keep the plantar fascia stretched while you are sleeping. Your provider may give you a shot of steroid medicine. Your healthcare provider may have other treatments to suggest. With treatment, plantar fasciitis may take up to several months to heal. You may find that the pain comes and goes. Talk to your healthcare provider if you do not feel improvement with treatment. How can I take care of myself? To help relieve pain: Rest your heel on an ice pack, gel pack, or package of frozen vegetables wrapped in a cloth every 3 to 4 hours for up to 20 minutes at a time. Keep your foot up on a pillow when you sit or lie down. Take nonprescription pain medicine, such as acetaminophen, ibuprofen, or naproxen. Read the label and take as directed. Nonsteroidal anti-inflammatory medicines (NSAIDs), such as ibuprofen or naproxen, may cause stomach bleeding and other problems. These risks increase with age. Unless recommended by your healthcare provider, do not take an NSAID for more than 10 days. Follow your healthcare provider's instructions, including any exercises recommended by your provider. Ask your provider: How and when you will hear your test results How long it will take to recover What activities you should avoid, including how much you can lift, and when you can return to your normal activities How to take care of yourself at home What symptoms or problems you should watch for and what to do if you have them Make sure you know when you should come back for a checkup. How can I help prevent plantar fasciitis? The best way to prevent plantar fasciitis is to wear well-made shoes that fit your feet and give good arch support and cushioning. This is especially important if you exercise or walk a lot or stand for a long time on hard surfaces. Get new athletic shoes before your old shoes stop supporting and cushioning your feet. You should also: Avoid repeated jarring to the heel. Keep a healthy weight. Do leg and foot stretching exercises regularly. Developed by [employer] Adult Advisor 2014.1 published by [employer] Last modified: 2012-11-05 Last reviewed: 2012-10-19 This content is reviewed periodically and is subject to change as new health information becomes available. The information is intended to inform and educate and is not a replacement for medical evaluation, advice, diagnosis or treatment by a healthcare professional. References Adult Advisor 2014.1 Index Copyright 2014 [employer] and/or one of its subsidiaries. All rights reserved. Plantar Fasciitis Exercises You may start strengthening the muscles of your hip and stretching the muscles of your foot right away. Prone hip extension: Lie on your stomach with your legs straight out behind you. Fold your arms under your head and rest your head on your arms. Draw your belly button in towards your spine and tighten your abdominal muscles. Tighten the buttocks and thigh muscles of the leg on your injured side and lift the leg off the floor about 8 inches. Keep your leg straight. Hold for 5 seconds. Then lower your leg and relax. Do 2 sets of 15. Side-lying leg lift: Lie on your uninjured side. Tighten the front thigh muscles on your injured leg and lift that leg 8 to 10 inches (20 to 25 centimeters) away from the other leg. Keep the leg straight and lower it slowly. Do 2 sets of 15. Frozen can roll: Roll your bare injured foot back and forth from your heel to your mid-arch over a frozen juice can. Repeat for 3 to 5 minutes. This exercise is particularly helpful if it is done first thing in the morning. Towel stretch: Sit on a hard surface with your injured leg stretched out in front of you. Loop a towel around your toes and the ball of your foot and pull the towel toward your body keeping your leg straight. Hold this position for 15 to 30 seconds and then relax. Repeat 3 times. Standing calf stretch: Stand facing a wall with your hands on the wall at about eye level. Keep your injured leg back with your heel on the floor. Keep the other leg forward with the knee bent. Turn your back foot slightly inward (as if you were pigeon-toed). Slowly lean into the wall until you feel a stretch in the back of your calf. Hold the stretch for 15 to 30 seconds. Return to the starting position. Repeat 3 times. Do this exercise several times each day. Seated plantar fascia stretch: Sit in a chair and cross the injured foot over the knee of your other leg. Place your fingers over the base of your toes and pull them back toward your cope until you feel a comfortable stretch in the arch of your foot. Hold 15 seconds and repeat 3 times. Plantar fascia massage: Sit in a chair and cross the injured foot over the knee of your other leg. Place your fingers over the base of the toes of your injured foot and pull your toes toward your cope until you feel a stretch in the arch of your foot. With your other hand, massage the bottom of your foot, moving from the heel toward your toes. Do this for 3 to 5 minutes. Start gently. Press harder on the bottom of your foot as you become able to tolerate more pressure. Achilles stretch: Stand with the ball of one foot on a stair. Reach for the step below with your heel until you feel a stretch in the arch of your foot. Hold this position for 15 to 30 seconds and then relax. Repeat 3 times. After you have stretched the bottom muscles of your foot, you can do these exercises to start strengthening the muscles of your foot. Towel pickup: With your heel on the ground, sweet pickle maker a towel with your toes. Release. Repeat 10 to 20 times. When this gets easy, add more resistance by placing a book or small weight on the towel. Balance and reach exercises: Stand next to a chair with your injured leg farther from the chair. The chair will provide support if you need it. Stand on the foot of your injured leg and bend your knee slightly. Try to raise the arch of this foot while keeping your big toe on the floor. Keep your foot in this position. 1. With the hand that is farther away from the chair, reach forward in front of you by bending at the waist. Avoid bending your knee any more as you do this. Repeat this 15 times. To make the exercise more challenging, reach farther in front of you. Do 2 sets of 15. 2. While keeping your arch raised, reach the hand that is farther away from the chair across your body toward the chair. The farther you reach, the more challenging the exercise. Do 2 sets of 15. Heel raise: Stand behind a chair or counter with both feet flat on the floor. Using the chair or counter as a support, rise up onto your toes and hold for 5 seconds. Then slowly lower yourself down without holding onto the support. (It's OK to keep holding onto the support if you need to.) When this exercise becomes less painful, try doing this exercise while you are standing on the injured leg only. Repeat 15 times. Do 2 sets of 15. Rest 30 seconds between sets. Developed by [employer]. Adult Advisor 2014.1 published by [employer]. Last modified: 2013-02-04 Last reviewed: 2011-08-02 This content is reviewed periodically and is subject to change as new health information becomes available. The information is intended to inform and educate and is not a replacement for medical evaluation, advice, diagnosis or treatment by a healthcare professional. References Adult Advisor 2014.1 Index Copyright 2014 [employer] and/or one of its subsidiaries. All rights reserved. documented in this encounter [facility] 11-01-2021 History of Present illness Narrative Images from the original note were not included. SUBJECTIVE: Agus Gutierrez is a 55 year old female who presents to establish care and complaints of foot pain. PMH HTN, thyroid nodules. Reports previous PCP Dr Lawson. Foot pain: reports chronic right foot pain. Reports started about one month ago. Pain started lateral side and now is in center towards. Heel. Reports pain only with weight bearing. No pain when sitting or not on her feet. Reports worse when she first stands up. States eases after several steps but continues as a dull ache all day. Reports when first stands it is more intense dull pain. She reports she has been using compression sleeve. She reports taking aleve or ibuprofen as needed. States she will take ibuprofen 3 tabs 1-2x/day. Reports this does help but does not completely resolve pain. Reports worse pain 7/10, best 0/10. Reports she had right foot pain about 15 yrs ago and was told she had heel spurs. Reports chronic off and on she would have pain that would hurt but would improved as she walked on it more. HTN: Ms. Gutierrez indicates that she is feeling well and denies any symptoms referable to elevated blood pressure. Specifically denies headache, chest pain, palpitations, dyspnea, peripheral edema, claudication symptoms, orthopnea, fatigue and PND. Patient denies any side effects of her medication(s) and is compliant with their regimen. She does not check BP's generally. Agus denies regular aerobic exercise. She watches her diet for sodium, low fat and low cholesterol some of the time. She is taking HCTZ 12.5 mg daily and lisinopril 40 mg daily. Last 3 Encounter BP Readings: Date: BP: 11/01/2021 120/76 08/24/2021 123/85 07/08/2021 128/88 Thyroid nodules, subclinical hyperthyroidism: she is seeing Dr Banda for management. She had FNA in fall 2017 which was benign. Preventative: She has had 2 COVID vaccines. She is interested in her booster today. She is due for her mammogram. PAST MEDICAL HISTORY Diagnosis Date Disorder of thyroid Glaucoma Herniated lumbar disc without myelopathy Hypertension PAST SURGICAL HISTORY Procedure Laterality Date LAMINECTOMY W/O FFD 1/2 VERT SEG LUMBAR 1991 Laminectomy, lumbar S PROBE PERC LUMBAR DISCECTOMY 1991 Social History Tobacco Use Smoking status: Former Smoker Quit date: 01/22/1993 Years since quittin.7 Smokeless tobacco: Never Used Vaping Use Vaping Use: Never used Substance Use Topics Alcohol use: Yes Comment: Rarely Drug use: No Family history reviewed. ALLERGIES Allergen Reactions Daypro [Oxaprozin] Hives Erythromycin Hives Penicillins Hives Current Outpatient Medications Medication Sig hydroCHLOROthiazide 12.5 mg capsule Take 1 capsule by mouth once daily. lisinopril (ZESTRIL, PRINIVIL) 40 mg tablet Take 1 tablet by mouth once daily. brimonidine (ALPHAGAN) 0.2 % ophthalmic solution Use as directed. timolol maleate (TIMOPTIC) 0.25 % ophthalmic solution Use as directed latanoprost (XALATAN) 0.005 % ophthalmic solution Use 1 Drop in both eyes daily at bedtime. TO AFFECTED EYE(S) No current facility-administered medications for this visit. Review of Systems Constitutional: Negative for chills, diaphoresis, fever, malaise/fatigue and weight loss. Respiratory: Negative for cough, shortness of breath and wheezing. Cardiovascular: Negative for chest pain, palpitations and leg swelling. Gastrointestinal: Negative for abdominal pain, diarrhea, nausea and vomiting. Musculoskeletal: Positive for joint pain. Negative for back pain, myalgias and neck pain. See HPI Neurological: Negative for dizziness and headaches. Psychiatric/Behavioral: Negative for depression, substance abuse and suicidal ideas. The patient is not nervous/anxious and does not have insomnia. BP 120/76 Pulse 96 Temp (Src) 98.2 (Oral) Resp 18 Ht 5' 5 (1.65m) Wt 238 lb 3.2 oz (108.0kg) SpO2 98% BMI 39.64 kg/(m^2). Physical Exam Vitals and nursing note reviewed. Constitutional: General: She is not in acute distress. Appearance: Normal appearance. She is obese. She is not ill-appearing. HENT: Head: Normocephalic and atraumatic. Cardiovascular: Rate and Rhythm: Normal rate and regular rhythm. Pulses: Normal pulses. Dorsalis pedis pulses are 2+ on the right side. Posterior tibial pulses are 2+ on the right side. Heart sounds: Normal heart sounds, S1 normal and S2 normal. No murmur heard. Pulmonary: Effort: Pulmonary effort is normal. Breath sounds: Normal breath sounds. Musculoskeletal: Right lower leg: No edema. Left lower leg: No edema. Right foot: Normal range of motion. No deformity or bunion. Feet: Feet: Right foot: Skin integrity: Skin integrity normal. Toenail Condition: Right toenails are normal. Left foot: Skin integrity: Skin integrity normal. Skin: General: Skin is warm and dry. Neurological: Mental Status: She is alert and oriented to person, place, and time. Psychiatric: Mood and Affect: Mood normal. Behavior: Behavior normal. Thought Content: Thought content normal. Judgment: Judgment normal. Component Latest Ref Rng & Units 06/29/2021 WBC 3.70 - 11.00 k/uL 7.16 RBC 3.90 - 5.20 m/uL 4.84 Hemoglobin 11.5 - 15.5 g/dL 12.8 Hematocrit 36.0 - 46.0 % 42.0 MCV 80.0 - 100.0 fL 86.8 MCH 26.0 - 34.0 pg 26.4 MCHC 30.5 - 36.0 g/dL 30.5 RDW-CV 11.5 - 15.0 % 14.4 Platelet Count 150 - 400 k/uL 513 (H) MPV 9.0 - 12.7 fL 10.8 Neut% % 68.0 Abs Neut (ANC) 1.45 - 7.50 k/uL 4.87 Lymph% % 20.0 Abs Lymph 1.00 - 4.00 k/uL 1.43 Hunt% % 8.8 Abs Hunt <0.87 k/uL 0.63 Eosin% % 2.8 Abs Eosin <0.46 k/uL 0.20 Baso% % 0.3 Abs Baso <0.11 k/uL <0.03 Immature Gran % % 0.1 IMMATURE GRANS (ABS) <0.10 k/uL <0.03 NRBC /100 WBC 0.0 Absolute nRBC <0.01 k/uL <0.01 DTYPE Auto Protein, Total 6.3 - 8.0 g/dL 8.0 Albumin 3.9 - 4.9 g/dL 4.2 Calcium 8.5 - 10.2 mg/dL 10.3 (H) Bilirubin, Total 0.2 - 1.3 mg/dL 0.3 Alkaline Phosphatase 34 - 123 U/L 79 AST 13 - 35 U/L 18 ALT 7 - 38 U/L 18 Glucose 74 - 99 mg/dL 101 (H) BUN 7 - 21 mg/dL 19 Creatinine 0.58 - 0.96 mg/dL 1.00 (H) Sodium 136 - 144 mmol/L 140 Potassium 3.7 - 5.1 mmol/L 4.3 Chloride 97 - 105 mmol/L 101 CO2 22 - 30 mmol/L 28 Anion Gap 9 - 18 mmol/L 11 eGFR >=60 mL/min/1.73m 66 Cholesterol, Total <200 mg/dL 239 (H) Triglyceride <150 mg/dL 142 HDL Cholesterol >39 mg/dL 46 Non HDL Cholesterol <130 mg/dL 193 (H) Fasting Time hrs 12 VLDL Cholesterol <30 mg/dL 28 TC:HDL Ratio <5.10 5.20 (H) LDL Cholesterol <100 mg/dL 165 (H) LDL:HDL Ratio <2.54 3.59 (H) HIV 12 Combo (Ag/Ab) Nonreactive Nonreactive HIV 1/2 Ab HIV Interpretation Hemoglobin A1C 4.3 - 5.6 % 6.0 (H) Estimated Average Glucose mg/dL 126 Occult Blood, Stool Negative Negative TSH 0.270 - 4.200 mIU/L 0.007 (L) T3 79 - 165 ng/dL 172 (H) Free T4 0.9 - 1.7 ng/dL 1.3 Vitamin D 25 Hydroxy 31.0 - 80.0 ng/mL 33.1 Hep C Antibody IA Negative Negative ASSESSMENT/PLAN: 1. Right foot pain - ICD9: 729.5, ICD10: M79.671 (primary diagnosis) - Acute, on chronic, probable plantar fasciitis versus heel spur. Will check xray today. Referral to podiatry for further management. - recommend starting aleve otc 2 tabs twice daily with food. Ice 20 min 4-5 x/day. See taping videos and exercise handout - XR FOOT GENERAL 3V AP/LAT/OBL RIGHT - CONSULT TO PODIATRY 2. Essential hypertension with goal blood pressure less than 140/90 - ICD9: 401.9, ICD10: I10 - good control - Continue current medication(s) - Encouraged dietary sodium restriction/DASH diet - Recommended regular aerobic exercise. - Recommend home blood pressure monitoring, to bring results in on next visit - Discussed need and benefit for weight loss. - Reviewed risks of HTN and principles of treatment - Goal of BP <130/80 - Recommend home or pharmacy blood pressure monitoring 3. Encounter for immunization - ICD9: V03.89, ICD10: Z23 - PFIZER-BIONTECH COVID-19 VACCINE, AGE 12+ YR (DUKES TOP) - given today in office 4. Encounter for screening mammogram for malignant neoplasm of breast - ICD9: V76.12, ICD10: Z12.31 - MATTHEW SCREENING Sherry Aquino APRN.MANAGER [employer]CH[employer] documented in this encounter [facility] 08-24-2021 Note HNO ID: [id number] Author: Gertrudis Banda MD Service: ? Author Type: Physician Type: Progress Notes Filed: 08/24/2021 9:36 AM Note Text: REFERRING PHYSICIAN: Carmelita Trevizo [id number] [facility] [id number] REASON FOR REFERRAL:Thyroid nodule My final recommendations will be communicated back to the requesting physician by way of shared Medical record or a letter via [place] mail SUBJECTIVE: Agus Gutierrez is a 55 year old female was referred for evaluation of a thyroid nodules. History in brief, she was noted to have thyroid nodules in 2018. She underwent thyroid FNA in fall 2017, which was benign. Previously, she saw me regarding subclinical hyperthyroidism in 2019 I ordered an NEWMAN uptake/scan, but she didn't proceed with it. She continues to have subclinical hyperthyroidism She denies tremors, no palpitations Last thyroid US was in 2018 which revealed ?The thyroid gland is enlarged, inhomogeneous in echogenicity and with slightly increased vascularity. The right lobe measures 9.1 x 2.8 x 2.4 cm. ?The left measures 9.3 x 2.6 x 2.3 cm. ?The isthmus measures 13 mm. With respect to the right lobe, the right lobe is comprised of multiple hypoechoic and complex cystic nodules of which only the largest are measured. 2 complex cystic nodules are noted within the anterior mid gland measuring 14 x 13 x 8 mm and 13 x 11 x 7 mm. There is a large dominant hypoechoic nodule within the inferior gland measuring 8.4 x 3.3 x 2.3 cm. There is a small central cystic area. Somewhat exophytic nodule projects inferiorly from the right lower lobe and measures 2.7 x 1.8 x 1.8 cm. With respect to the left lobe, the left lobe is comprised of multiple hypoechoic and complex cystic nodules of which only the largest are measured. Hypoechoic nodule within the mid gland posteriorly and laterally measures 12 x 12 x 9 mm. Within the mid gland anteriorly and slightly medially is a 20 x 19 x 7 mm hypoechoic nodule. Within the mid to lower lobe centrally is a complex solid cystic nodule measuring 15 x 10 x 7 mm. With respect to the isthmus, the isthmus is thickened and there is a isodense hypoechoic nodule anteriorly which measures 21 x 16 x 15 mm. Related symptoms: Swallowing difficulty: No Shortness of breath when lying flat: No History of radiation exposure to the neck: No Family history of thyroid cancer: No PAST MEDICAL HISTORY Diagnosis Date - Herniated lumbar disc without myelopathy - Hypertension PAST SURGICAL HISTORY Procedure Laterality Date - LAMINECTOMY W/O FFD 04/04 VERT SEG LUMBAR 1991 Laminectomy, lumbar - S PROBE PERC LUMBAR DISCECTOMY 1991 ALLERGIES Allergen Reactions - Daypro [Oxaprozin] Hives - Erythromycin Hives - Penicillins Hives Social History Tobacco Use - Smoking status: Former Smoker Quit date: 01/22/1993 Years since quittin.6 - Smokeless tobacco: Never Used Vaping Use - Vaping Use: Never used Substance Use Topics - Alcohol use: Yes Comment: Rarely - Drug use: No FAMILY HISTORY Problem Relation Age of Onset - Hypertension Mother - Arthritis Mother - Cancer Father skin - Heart Father - Diabetes Father MEDICATIONS: Current Outpatient Medications on File Prior to Visit Medication Sig - hydroCHLOROthiazide 12.5 mg capsule Take 1 capsule by mouth once daily. - lisinopril (ZESTRIL, PRINIVIL) 40 mg tablet Take 1 tablet by mouth once daily. - brimonidine (ALPHAGAN) 0.2 % ophthalmic solution Use as directed. - timolol maleate (TIMOPTIC) 0.25 % ophthalmic solution Use as directed - latanoprost (XALATAN) 0.005 % ophthalmic solution Use 1 Drop in both eyes daily at bedtime. TO AFFECTED EYE(S) No current facility-administered medications on file prior to visit. REVIEW OF SYSTEMS: Answers for HPI/ROS submitted by the patient on 08/23/2021 Fatigue: Yes Night Sweats: No Recent Unintentional Weight Change: No Skin Color Changes: No Post-Nasal Drip: Yes Thyroid Pain (lower neck): No Trouble Swallowing: No Vision Disturbance: No Chest Pain: No Leg Swelling: No Blood Clots?: No Leg Pain while walking?: No Difficulty Breathing?: No Heartburn: No Nausea: No Vomiting?: No Diarrhea: No Constipation: No Abdominal Pain: No Bone Pain?: No Muscle Aches: No Muscle Weakness: No Joint Pain or Stiffness: Yes Headaches: No Dizziness: No Numbness?: No Urgency to Urinate?: No Increased Urination?: No Slow or Small Urine Stream?: No Are your menstrual cycles regular?: No Are your menstrual cycles irregular?: No Have your menstrual cycles stopped?: Yes Flushing?: No Hot Flashes?: Yes Increased Thirst: No Heat Intolerance?: Yes PHYSICAL EXAMINATION: BP 123/85 Pulse 96 Wt 106.6 kg (235 lb) SpO2 97% BMI 41.63 kg/m? General: no acute distress, alert and orientated X 3 Eyes:EOMI, pupils are equally round, anicteric sclera Neck - supple, no significant adenopathy, Thyroid: enlarged, R> L si (more content not included)... [facility] 08-24-2021 Instructions Gertrudis Banda MD - 08/24/2021 9:17 AM EDT Schedule thyroid ultrasound and radioactive iodine scan at [facility] Get thyroid labs drawn I will send you a message in my chart once the lab results become available Follow up in 3 months, this can be a virtual visit. documented in this encounter [facility] 08-24-2021 History of Present illness Narrative REFERRING PHYSICIAN: Carmelita Trevizo [address] [facility] [id number] REASON FOR REFERRAL:Thyroid nodule My final recommendations will be communicated back to the requesting physician by way of shared Medical record or a letter via [place] mail SUBJECTIVE: Agus Gutierrez is a 55 year old female was referred for evaluation of a thyroid nodules. History in brief, she was noted to have thyroid nodules in 2018. She underwent thyroid FNA in fall 2017, which was benign. Previously, she saw me regarding subclinical hyperthyroidism in 2019 I ordered an NEWMAN uptake/scan, but she didn't proceed with it. She continues to have subclinical hyperthyroidism She denies tremors, no palpitations Last thyroid US was in 2018 which revealed The thyroid gland is enlarged, inhomogeneous in echogenicity and with slightly increased vascularity. The right lobe measures 9.1 x 2.8 x 2.4 cm. The left measures 9.3 x 2.6 x 2.3 cm. The isthmus measures 13 mm. With respect to the right lobe, the right lobe is comprised of multiple hypoechoic and complex cystic nodules of which only the largest are measured. 2 complex cystic nodules are noted within the anterior mid gland measuring 14 x 13 x 8 mm and 13 x 11 x 7 mm. There is a large dominant hypoechoic nodule within the inferior gland measuring 8.4 x 3.3 x 2.3 cm. There is a small central cystic area. Somewhat exophytic nodule projects inferiorly from the right lower lobe and measures 2.7 x 1.8 x 1.8 cm. With respect to the left lobe, the left lobe is comprised of multiple hypoechoic and complex cystic nodules of which only the largest are measured. Hypoechoic nodule within the mid gland posteriorly and laterally measures 12 x 12 x 9 mm. Within the mid gland anteriorly and slightly medially is a 20 x 19 x 7 mm hypoechoic nodule. Within the mid to lower lobe centrally is a complex solid cystic nodule measuring 15 x 10 x 7 mm. With respect to the isthmus, the isthmus is thickened and there is a isodense hypoechoic nodule anteriorly which measures 21 x 16 x 15 mm. Related symptoms: Swallowing difficulty: No Shortness of breath when lying flat: No History of radiation exposure to the neck: No Family history of thyroid cancer: No PAST MEDICAL HISTORY Diagnosis Date Herniated lumbar disc without myelopathy Hypertension PAST SURGICAL HISTORY Procedure Laterality Date LAMINECTOMY W/O FFD 04/04 VERT SEG LUMBAR 1991 Laminectomy, lumbar S PROBE PERC LUMBAR DISCECTOMY 1991 ALLERGIES Allergen Reactions Daypro [Oxaprozin] Hives Erythromycin Hives Penicillins Hives Social History Tobacco Use Smoking status: Former Smoker Quit date: 01/22/1993 Years since quittin.6 Smokeless tobacco: Never Used Vaping Use Vaping Use: Never used Substance Use Topics Alcohol use: Yes Comment: Rarely Drug use: No FAMILY HISTORY Problem Relation Age of Onset Hypertension Mother Arthritis Mother Cancer Father skin Heart Father Diabetes Father MEDICATIONS: Current Outpatient Medications on File Prior to Visit Medication Sig hydroCHLOROthiazide 12.5 mg capsule Take 1 capsule by mouth once daily. lisinopril (ZESTRIL, PRINIVIL) 40 mg tablet Take 1 tablet by mouth once daily. brimonidine (ALPHAGAN) 0.2 % ophthalmic solution Use as directed. timolol maleate (TIMOPTIC) 0.25 % ophthalmic solution Use as directed latanoprost (XALATAN) 0.005 % ophthalmic solution Use 1 Drop in both eyes daily at bedtime. TO AFFECTED EYE(S) No current facility-administered medications on file prior to visit. REVIEW OF SYSTEMS: Answers for HPI/ROS submitted by the patient on 08/23/2021 Fatigue: Yes Night Sweats: No Recent Unintentional Weight Change: No Skin Color Changes: No Post-Nasal Drip: Yes Thyroid Pain (lower neck): No Trouble Swallowing: No Vision Disturbance: No Chest Pain: No Leg Swelling: No Blood Clots?: No Leg Pain while walking?: No Difficulty Breathing?: No Heartburn: No Nausea: No Vomiting?: No Diarrhea: No Constipation: No Abdominal Pain: No Bone Pain?: No Muscle Aches: No Muscle Weakness: No Joint Pain or Stiffness: Yes Headaches: No Dizziness: No Numbness?: No Urgency to Urinate?: No Increased Urination?: No Slow or Small Urine Stream?: No Are your menstrual cycles regular?: No Are your menstrual cycles irregular?: No Have your menstrual cycles stopped?: Yes Flushing?: No Hot Flashes?: Yes Increased Thirst: No Heat Intolerance?: Yes PHYSICAL EXAMINATION: BP 123/85 Pulse 96 Wt 106.6 kg (235 lb) SpO2 97% BMI 41.63 kg/m General: no acute distress, alert and orientated X 3 Eyes:EOMI, pupils are equally round, anicteric sclera Neck - supple, no significant adenopathy, Thyroid: enlarged, R> L size, Palpable right thyroid nodule measuring ~ 5 cm Neuro - alert, oriented, normal speech, no focal findings noted CV - normal rate and regular rhythm, S1 and S2 normal. Chest:Lungs clear to auscultation. No wheezing, rhonchi, rales Abdominal: soft, non-tender. Bowel sounds normal. Musculoskeletal - no joint tenderness, deformity or swelling Extremities- no edema, no discoloration Skin- no rash or erythema LABS AND IMAGING Thyroid US- see above TSH Date Value Ref Range Status 06/29/2021 0.007 (L) 0.270 - 4.200 mIU/L Final Free T4 Date Value Ref Range Status 06/29/2021 1.3 0.9 - 1.7 ng/dL Final ASSESSMENT AND PLAN: 1. Multiple Thyroid nodules: 2. Subclinical hyperthyroidism Indicated to the patient that thyroid nodules have a 5-10% risk of malignancy. Based on this, my recommendation is to repeat a thyroid US to reassess the size of thyroid nodules TSI was negative, which rules out Graves disease She likely has a Toxic nodule Proceed with NEWMAN uptake/scan Clinically, she appears euthyroid Recheck thyroid function test We discussed starting low dose of methimazole if she has a hot nodule If she has cold nodules, then she will need to undergo thyroid FNA I will send patient a message in my chart once the lab results become available Follow up in 3 months, this can be a virtual visit Gertrudis Banda MD 08/24/21 documented in this encounter [facility] 07-09-2021 Miscellaneous Notes Called Patient to schedule NM scan but she states she wants to wait until after her ENDO appointment in [place] in August Please let patient know we are ordering her a scan of her thyroid and also additional lab work. Thank you Carmelita Trevizo APRN.FAUSTINO Tests were ordered Please assist patient is getting her the apts. documented in this encounter [facility] 07-08-2021 Note HNO ID: [id number] Author: Rosanna Hurd LPN Service: ? Author Type: ? Type: Progress Notes Filed: 07/08/2021 10:50 AM Note Text: Manual Readin/88 Pulse: 96 (right arm) 140/90 P: 96 (left arm) Reason for blood pressure check - Last BP elevated Patient is: Taking medication as prescribed Yes Took medication today No (takes in evening) If no, date medication last taken 07/07/21 Experiencing side effects No BP was elevated at last appt 06/23/21. No BP medication changes were made at that time. Taking all medications as prescribed. States that she has been checking readings at home with ranges 137-164/91-110 ( in left arm). Denies any chest pain, shortness of breath, dizziness, or headaches. Daily caffeine use. Past personal history of tobacco use; no current exposure. Alert and oriented. Pt has been identified by name and birthdate: Yes Allergies reviewed: Yes Latex allergy: no. Medication - prescribed and OTC reviewed and updated: Yes Do you need any prescription refills prior to your next visit: No Health Maintenance: Reviewed and up to date Patient advised that she would be contacted after review by PCP. Rosanna Hurd LPN [facility] 07-08-2021 History of Present illness Narrative Manual Readin/88 Pulse: 96 (right arm) 140/90 P: 96 (left arm) Reason for blood pressure check - Last BP elevated Patient is: Taking medication as prescribed Yes Took medication today No (takes in evening) If no, date medication last taken 07/07/21 Experiencing side effects No BP was elevated at last appt 06/23/21. No BP medication changes were made at that time. Taking all medications as prescribed. States that she has been checking readings at home with ranges 137-164/91-110 ( in left arm). Denies any chest pain, shortness of breath, dizziness, or headaches. Daily caffeine use. Past personal history of tobacco use; no current exposure. Alert and oriented. Pt has been identified by name and birthdate: Yes Allergies reviewed: Yes Latex allergy: no. Medication - prescribed and OTC reviewed and updated: Yes Do you need any prescription refills prior to your next visit: No Health Maintenance: Reviewed and up to date Patient advised that she would be contacted after review by PCP. Rosanna Hurd LPN documented in this encounter [facility] 06-23-2021 Note HNO ID: [id number] Author: Carmelita Trevizo APRN.[employer] Service: ? Author Type: Nurse Practitioner Type: Progress Notes Filed: 06/23/2021 3:41 PM Note Text: CC: Patient presents with: Yearly Exam: Yearly Exam HPI Agus Gutierrez is a 55 year old female who presents today for annual physical exam. Has not been seen in this office in 2 years. Just treated for dental infection. Having 2 teeth removed tomorrow. 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 Has had fatigue since father passing away at [facility] and then [facility] COVID. It is not increasing and she is hoping is due to all the stress for the past few months. Denies any weight changes, fever, or recurrent infections. Exercise: denies regular aerobic exercise. Is just starting to try and walk every day Diet: Watches diet for salt (salty snacks, added salt, processed frozen/canned foods), sugary/sweet snacks, unhealthy fats: Yes Caffeine: not even daily Water intake: 30 ounces daily and working on increasing this. Hyperthyroid and Thyroid Nodules: Was consulted to endocrinology for this at her last visit almost 2 years ago. Has not seen them or followed up yet. Has not had thyroid levels checked recently either. Reports the fatigue above, denies weight changes, intolerance to heat, or intolerance to cold. Denies any difficulty swallowing, pain, or feeling the nodules in her thyroid. Glaucoma: Takes eye drops as prescribed. Sees an eye doctor in [place] every 3 months. No change in vision since seeing the eye doctor last, and no new concerns at last eye visit. HTN: Ms. Gutierrez indicates that she is feeling well and denies any symptoms referable to elevated blood pressure. Specifically denies headache, chest pain, palpitations, dyspnea and peripheral edema. Patient denies any side effects of her medication(s) and is compliant with their regimen. She does check BP's away from this office with average BP's in the 120/70s-140s/80s. Mostly 140s/80s. range. Agus denies regular aerobic exercise. She watches her diet for sodium, low fat and low cholesterol most of the time. Last 3 Encounter BP Readings: Date: BP: 06/23/2021 128/76 06/11/2021 158/102 05/04/2021 148/92 Prediabetes: Does check her blood sugar randomly at home Typically in 110s but has been in the 130s. Denies any numbness tingling, increase in thirst hunger or urination. REVIEW OF SYSTEMS General: no fevers, no chills, no night sweats, no recurrent infections, no change in appetite, no change in energy and no significant changes in weight Neck: See HPI Respiratory: no cough, no wheezing, no shortness of breath, no hemoptysis Cardiovascular: no chest pain, no chest pressure, no palpitations and no swelling GI: No nausea, vomiting, or diarrhea no dark sticky stools or blood in stools : No history of dysuria, frequency or incontinence Musculoskeletal: Negative for joint pain or swelling, back pain or muscle pain Skin: Negative for lesions, rash, and itching Psych: Negative for sleep disturbance, mood disorder and recent psychosocial stressors Endocrine: See HPI Neurologic: No headache, weakness, numbness, tingling, neck stiffness, dizziness, syncope. PAST MEDICAL HISTORY Diagnosis Date - Herniated lumbar disc without myelopathy - Hypertension PAST SURGICAL HISTORY Procedure Laterality Date - LAMINECTOMY W/O FFD 04/04 VERT SEG LUMBAR 1991 Laminectomy, lumbar - S PROBE PERC LUMBAR DISCECTOMY 1991 ALLERGIES Daypro [Oxaprozin], Erythromycin, and Penicillins MEDICATIONS hydroCHLOROthiazide 12.5 mg capsule Take 1 capsule by mouth once daily. lisinopril (ZESTRIL, PRINIVIL) 40 mg tablet Take 1 tablet by mouth once daily. cholecalciferol, Vitamin D3, (VITAMIN D3) 50,000 unit cap capsule Take 1 capsule by mouth one time a week. (ONE CAPSULE) FOR VITAMIN D DEFICIENCY brimonidine (ALPHAGAN) 0.2 % ophthalmic solution Use as directed. timolol maleate (TIMOPTIC) 0.25 % ophthalmic solution Use as directed latanoprost (XALATAN) 0.005 % ophthalmic solution Use 1 Drop in both eyes daily at bedtime. TO AFFECTED EYE(S) FAMILY HISTORY Problem Relation Age of Onset - Hypertension Mother - Arthritis Mother - Cancer Father skin - Heart Father - Diabetes Father Social History Tobacco Use - Smoking status: Former Smoker Quit date: 01/22/1993 Years since quittin.4 - Smokeless tobacco: Never Used Substance Use Topics - Alcohol use: Yes Comment: Rarely - Drug use: No PHYSICAL EXAM BP 128/76 Pulse 84 Resp 16 Wt 106.6 kg (235 lb) BMI 41.63 kg/m? General Appearance: well appearing, in no acute distress, alert Pysch: mood and affect broad and appropriate Neck: No adenopathy, positive findings: thyroid: enlarged especially to right lobe, no specific nodules palpated Lymph nodes: No cervical lymphadenopathy and No supraclavicular lymphadenopathy Lungs: Lungs clear to auscultation. No wheezing (more content not included)... [facility] 06-23-2021 History of Present illness Narrative CC: Patient presents with: Yearly Exam: Yearly Exam HPI Agus Gutierrez is a 55 year old female who presents today for annual physical exam. Has not been seen in this office in 2 years. Just treated for dental infection. Having 2 teeth removed tomorrow. 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 Has had fatigue since father passing away at [facility] and then [facility] COVID. It is not increasing and she is hoping is due to all the stress for the past few months. Denies any weight changes, fever, or recurrent infections. Exercise: denies regular aerobic exercise. Is just starting to try and walk every day Diet: Watches diet for salt (salty snacks, added salt, processed frozen/canned foods), sugary/sweet snacks, unhealthy fats: Yes Caffeine: not even daily Water intake: 30 ounces daily and working on increasing this. Hyperthyroid and Thyroid Nodules: Was consulted to endocrinology for this at her last visit almost 2 years ago. Has not seen them or followed up yet. Has not had thyroid levels checked recently either. Reports the fatigue above, denies weight changes, intolerance to heat, or intolerance to cold. Denies any difficulty swallowing, pain, or feeling the nodules in her thyroid. Glaucoma: Takes eye drops as prescribed. Sees an eye doctor in [place] every 3 months. No change in vision since seeing the eye doctor last, and no new concerns at last eye visit. HTN: Ms. Gutierrez indicates that she is feeling well and denies any symptoms referable to elevated blood pressure. Specifically denies headache, chest pain, palpitations, dyspnea and peripheral edema. Patient denies any side effects of her medication(s) and is compliant with their regimen. She does check BP's away from this office with average BP's in the 120/70s-140s/80s. Mostly 140s/80s. range. Agus denies regular aerobic exercise. She watches her diet for sodium, low fat and low cholesterol most of the time. Last 3 Encounter BP Readings: Date: BP: 06/23/2021 128/76 06/11/2021 158/102 05/04/2021 148/92 Prediabetes: Does check her blood sugar randomly at home Typically in 110s but has been in the 130s. Denies any numbness tingling, increase in thirst hunger or urination. REVIEW OF SYSTEMS General: no fevers, no chills, no night sweats, no recurrent infections, no change in appetite, no change in energy and no significant changes in weight Neck: See HPI Respiratory: no cough, no wheezing, no shortness of breath, no hemoptysis Cardiovascular: no chest pain, no chest pressure, no palpitations and no swelling GI: No nausea, vomiting, or diarrhea no dark sticky stools or blood in stools : No history of dysuria, frequency or incontinence Musculoskeletal: Negative for joint pain or swelling, back pain or muscle pain Skin: Negative for lesions, rash, and itching Psych: Negative for sleep disturbance, mood disorder and recent psychosocial stressors Endocrine: See HPI Neurologic: No headache, weakness, numbness, tingling, neck stiffness, dizziness, syncope. PAST MEDICAL HISTORY Diagnosis Date Herniated lumbar disc without myelopathy Hypertension PAST SURGICAL HISTORY Procedure Laterality Date LAMINECTOMY W/O FFD 1/2 VERT SEG LUMBAR 1991 Laminectomy, lumbar S PROBE PERC LUMBAR DISCECTOMY 1991 ALLERGIES Daypro [Oxaprozin], Erythromycin, and Penicillins MEDICATIONS hydroCHLOROthiazide 12.5 mg capsule Take 1 capsule by mouth once daily. lisinopril (ZESTRIL, PRINIVIL) 40 mg tablet Take 1 tablet by mouth once daily. cholecalciferol, Vitamin D3, (VITAMIN D3) 50,000 unit cap capsule Take 1 capsule by mouth one time a week. (ONE CAPSULE) FOR VITAMIN D DEFICIENCY brimonidine (ALPHAGAN) 0.2 % ophthalmic solution Use as directed. timolol maleate (TIMOPTIC) 0.25 % ophthalmic solution Use as directed latanoprost (XALATAN) 0.005 % ophthalmic solution Use 1 Drop in both eyes daily at bedtime. TO AFFECTED EYE(S) FAMILY HISTORY Problem Relation Age of Onset Hypertension Mother Arthritis Mother Cancer Father skin Heart Father Diabetes Father Social History Tobacco Use Smoking status: Former Smoker Quit date: 01/22/1993 Years since quittin.4 Smokeless tobacco: Never Used Substance Use Topics Alcohol use: Yes Comment: Rarely Drug use: No PHYSICAL EXAM BP 128/76 Pulse 84 Resp 16 Wt 106.6 kg (235 lb) BMI 41.63 kg/m General Appearance: well appearing, in no acute distress, alert Pysch: mood and affect broad and appropriate Neck: No adenopathy, positive findings: thyroid: enlarged especially to right lobe, no specific nodules palpated Lymph nodes: No cervical lymphadenopathy and No supraclavicular lymphadenopathy Lungs: Lungs clear to auscultation. No wheezing, rhonchi, rales. Heart: RRR without murmur, gallop, or rubs. No ectopy Extremities: No deformities, edema, skin discoloration, clubbing or cyanosis. Good capillary refill. HEPATITIS C SCREENING Never done HIV SCREENING Never done BP CONTROLLED (<130/80) Never done DTAP,TDAP,TD(1 - Tdap) Never done SHINGRIX VACCINE(1 of 2) Never done COLORECTAL CANCER SCREENING due on 02/22/2020 ANNUAL PCP TEAM CHRONIC DISEASE VISIT due on 08/12/2020 MAMMOGRAM due on 11/09/2021 DEPRESSION SCREENING due on 11/11/2021 DIABETES SCREEN due on 08/04/2022 PAP TESTING due on 01/16/2023 HPV TESTING due on 01/16/2023 LIPID SCREEN due on 08/04/2024 INFLUENZA Completed COVID-19 VACCINE Completed MENINGOCOCCAL CONJUGATE Aged Out ASSESSMENT/PLAN: 1. Essential hypertension with goal blood pressure less than 140/90 - ICD9: 401.9, ICD10: I10 (primary diagnosis) - good control in office, discussed to take BP when just waking up and reviewed proper technique with both feet flat on the floor. - Home BP monitor compared with in house reading and is accurate - Continue current medication(s) - Recommended regular aerobic exercise. - Recommend home blood pressure monitoring, to bring results in on next visit - Goal of BP <130/80 - HYDROCHLOROTHIAZIDE 12.5 MG CAPSULE - LISINOPRIL 40 MG TABLET - CBC + DIFF - Nurse BP visit in 2 weeks, if elevated or still getting readings of SBP in the 140s will need to increase medications - Follow up in 3 months/ if BP meds are changed it will have to be earlier 2. Fatigue, unspecified type - ICD9: 780.79, ICD10: R53.83 - Unsure if it is from the stress she encountered over the past few months or from her altered sleep working 3rd shift, or her thyroid. Might be a mixture of all 3. Need to evaluate thyroid levels first 3. Prediabetes - ICD9: 790.29, ICD10: R73.03 - COMP METABOLIC PANEL - HGB A1C 4. Multiple thyroid nodules - ICD9: 241.1, ICD10: E04.2 - CONSULT TO ENDOCRINOLOGY 5. Subclinical hyperthyroidism - ICD9: 242.90, ICD10: E05.90 - Levels not been checked in a while so may not be subclinical anymore. Will recheck. - TSH BLD - T3 BLD - T4 FREE/FREE THYROX - CONSULT TO ENDOCRINOLOGY 6. Low TSH level - ICD9: 794.5, ICD10: R79.89 As above - TSH BLD - T3 BLD - T4 FREE/FREE THYROX 7. Glaucoma, unspecified glaucoma type, unspecified laterality - ICD9: 365.9, ICD10: H40.9 - continue with eye drops and following up with opthalmology as recommended by them 8. Dyslipidemia - ICD9: 272.4, ICD10: E78.5 - to be determined upon return of lab results - Encouraged following a low fat, low cholesterol diet. - Discussed the benefits of regular aerobic exercise and weight loss. - COMP METABOLIC PANEL - LIPID PANEL BASIC 9. Vitamin D deficiency - ICD9: 268.9, ICD10: E55.9 - no longer on supplement - VITAMIN D 25 HYDROXY 10. Special screening examination for viral disease - ICD9: V73.99, ICD10: Z11.59 - HEP C AB IA W/CONF SCRN 11. Screening for HIV (human immunodeficiency virus) - ICD9: V73.89, ICD10: Z11.4 - HIV 1 2 COMBO(AG/AB),WITH REFLEX TO DIFFERENTIATION 12. Encounter for immunization - ICD9: V03.89, ICD10: Z23 - TDAP VACCINE AGE 7+ IM 13. Screening for colon cancer - ICD9: V76.51, ICD10: Z12.11 - FECAL OCCULT BLOOD TEST Prescription instructions reviewed with patient as applicable. Potential red flag symptoms discussed with the patient. Reviewed appropriate action plan to take if red flag symptoms occur. Patient agreeable to treatment plan. Carmelita Trevizo APRN.CNP documented in this encounter [facility] 06-11-2021 Note HNO ID: [id number] Author: Gaby Robles APRN.CNP Service: ? Author Type: Nurse Practitioner Type: Progress Notes Filed: 06/11/2021 9:25 AM Note Text: Subjective Patient came in with complaints of pain in the left upper jaw line. Patient said she has had it about 5 days. patient denies any fever, chills, nausea or any other symptoms at this time. Patient does admit to having multiple dental cavities. The history is provided by the patient. No spanish language lecturer was used. Review of Systems Constitutional: Negative. Skin: Negative. Objective Physical Exam Constitutional: Appearance: Normal appearance. HENT: Mouth/Throat: Mouth: Mucous membranes are moist. Dentition: Dental caries present. Comments: Cavities in area marked above were severe in nature. Minimal redness noted and mild amount of swelling noted in facial area on left side in correlation with tooth pain. Most of mouth is dental carries. Pulmonary: Effort: Pulmonary effort is normal. Neurological: Mental Status: She is alert. PAST MEDICAL HISTORY Diagnosis Date - Herniated lumbar disc without myelopathy - Hypertension PAST SURGICAL HISTORY Procedure Laterality Date - LAMINECTOMY W/O FFD 04/04 VERT SEG LUMBAR 1991 Laminectomy, lumbar - S PROBE PERC LUMBAR DISCECTOMY 1991 ALLERGIES Daypro [Oxaprozin], Erythromycin, and Penicillins MEDICATIONS hydroCHLOROthiazide 12.5 mg capsule Take 1 capsule by mouth once daily. lisinopril (ZESTRIL, PRINIVIL) 40 mg tablet Take 1 tablet by mouth once daily. brimonidine (ALPHAGAN) 0.2 % ophthalmic solution Use as directed. timolol maleate (TIMOPTIC) 0.25 % ophthalmic solution Use as directed latanoprost (XALATAN) 0.005 % ophthalmic solution Use 1 Drop in both eyes daily at bedtime. TO AFFECTED EYE(S) clindamycin (CLEOCIN) 150 mg capsule Take 3 capsules by mouth three times daily for 5 days. cholecalciferol, Vitamin D3, (VITAMIN D3) 50,000 unit cap capsule Take 1 capsule by mouth one time a week. (ONE CAPSULE) FOR VITAMIN D DEFICIENCY FAMILY HISTORY Problem Relation Age of Onset - Hypertension Mother - Arthritis Mother - Cancer Father skin - Heart Father - Diabetes Father Social History Tobacco Use - Smoking status: Former Smoker Quit date: 01/22/1993 Years since quittin.4 - Smokeless tobacco: Never Used Substance Use Topics - Alcohol use: Yes Comment: Rarely - Drug use: No ASSESSMENT/PLAN: 1. Pain, dental - ICD9: 525.9, ICD10: K08.89 Patient was given clindamycin 3 caps tid for 5 days. Instructed to call around today and find a dentist to do a full evaluation on mouth. Patient was okay with this care plan. Patient will seek follow up if anything changes in the mean time. Gaby Robles APRN.[facility] documented [facility] Diagnosis Essential hypertension with goal blood pressure less than 140/90- Primary [facility]* Diagnosis Hyperthyroidism- Primary Thyrotoxicosis without mention of goiter or other cause, without mention of thyrotoxic crisis or storm documented [facility]* Diagnosis Multiple thyroid nodules Nontoxic multinodular goiter Subclinical hyperthyroidism Thyrotoxicosis without mention of goiter or other cause, without mention of thyrotoxic crisis or storm [facility]* Diagnosis Right foot pain- Primary Pain in limb Essential hypertension with goal blood pressure less than 140/90 Encounter for immunization Need for other specified prophylactic vaccination against single bacterial disease Encounter for screening mammogram for malignant neoplasm of breast Other screening mammogram [facility] Diagnosis Right foot pain Pain in limb [facility]* Diagnosis Essential hypertension with goal blood pressure less than 140/90 documented [facility]* Diagnosis Essential hypertension with goal blood pressure less than 140/90 Morbid obesity (HCC) Morbid obesity Subclinical hyperthyroidism Thyrotoxicosis without mention of goiter or other cause, without mention of thyrotoxic crisis or storm documented [facility]* Diagnosis Wellness examination- Primary Essential hypertension with goal blood pressure less than 140/90 Multiple thyroid nodules Nontoxic multinodular goiter Subclinical hyperthyroidism Thyrotoxicosis without mention of goiter or other cause, without mention of thyrotoxic crisis or storm Encounter for immunization Need for other specified prophylactic vaccination against single bacterial disease Colon cancer screening Special screening for malignant neoplasms, colon documented in this encounter [facility] for referral (narrative)* Diagnostic Procedure Only (Routine) - Pending Review Specialty Diagnoses / Procedures Referred By Virgen t Referred To Contact MOLECULAR & FUNCTIONAL IMAGING Diagnoses Hyperthyroidism Procedures NM THY UPTAKE AND SCAN THYROID UPTAKE W/BLOOD FLOW SNGLE/MULT KIRK Sylvia Caballero MD [address] [place] [address] Molecular & Functional Imaging [address] [place] [id number] Referral ID Status Reason Start Date Expiration Date Visits Requested Visits Authorized [id number] Pending Review Auto-Generat ed Referral 07/02/2021 08/01/2022 1 1 [facility] for referral (narrative)* Diagnostic Procedure Only (Routine) - Pending Review Specialty Diagnoses / Procedures Referred By Virgen thompson Referred To Contact US IMAGING Diagnoses Multiple thyroid nodules Procedures US THYROID/PARATHYROID US SOFT TISSUE HEAD & NECK REAL TIME IMGE Gertrudis Ferrera MD [address] [address] [facility] Referral ID Status Reason Start Date Expiration Date Visits Requested Visits Authorized [id number] Pending Review Auto-Generat ed Referral 08/24/2021 09/23/2022 1 1 [facility] for referral (narrative)* Diagnostic Procedure Only (Routine) - Closed Specialty Diagnoses / Procedures Referred By Virgen thompson Referred To Contact XR IMAGING Diagnoses Right foot pain Procedures XR FOOT GENERAL 3V AP/LAT/OBL RIGHT RADEX FOOT COMPLETE MINIMUM 3 VIEWS Sherry Aquino, HEDIS MANAGER.MANAGER TECHNOLOGY [address] [place] [address] Xr Imaging Referral ID Status Reason Start Date Expiration Date V isits Requested Visits Authorized [id number] Closed Auto-Generate d Referral 11/01/2021 12/01/2022 1 1 [facility]* Diagnostic Procedure Only (Routine) - Closed Specialty Diagnoses / Procedures Referred By Contac t Referred To Contact XR IMAGING Diagnoses Right foot pain Procedures XR FOOT GENERAL 3V AP/LAT/OBL RIGHT RADEX FOOT COMPLETE MINIMUM 3 VIEWS Sherry Aquino HEDIS MANAGER.MANAGER TECHNOLOGY [address] [place] [address] Xr Imaging Referral ID Status Reason Start Date Expiration Date V isits Requested Visits Authorized [id number] Closed Auto-Generate d Referral 11/01/2021 12/01/2022 1 1 [facility] Reason for Referral Specialty Diagnoses / Procedures Referred By Contac t Referred To Contact Endocrinology Diagnoses Multiple thyroid nodules Subclinical hyperthyroidism Procedures CONSULT TO ENDOCRINOLOGY OFFICE/OUTPATIENT [facility] 60-74 MINUTES Carmelita Trevizo APRN.MANAGER TECHNOLOGY [address] [place] [address] Referral ID Status Reason Start Date Expiration Date Visits Requested Visits Authorized [id number] Pending Review PCP Requested Referral 06/23/2021 06/23/2022 1 1 Specialty Diagnoses / Procedures Referred By Contac t Referred To Contact Podiatry Diagnoses Right foot pain Procedures CONSULT TO PODIATRY Sherry Aquino, HEDIS MANAGER.MANAGER TECHNOLOGY [address] [place] [address] Jacob Kan [address] [place] [id number] Referral ID Status Reason Start Date Expiration Date Visits Requested Visits Authorized [id number] Ref Not Required PCP Requested Referral 11/01/2021 01/30/2022 3 3 Specialty Diagnoses / Procedures Referred By Contac t Referred To Contact XR IMAGING Diagnoses Right foot pain Procedures XR FOOT GENERAL 3V AP/LAT/OBL RIGHT RADEX FOOT COMPLETE MINIMUM 3 VIEWS Sherry Aquino, HEDIS MANAGER.MANAGER TECHNOLOGY [address] [place] [address] Xr Imaging Referral ID Status Reason Start Date Expiration Date V isits Requested Visits Authorized [id number] Closed Auto-Generate d Referral 11/01/2021 12/01/2022 1 1 Specialty Diagnoses / Procedures Referred By Contac t Referred To Contact BR IMAGING Diagnoses Encounter for screening mammogram for malignant neoplasm of breast Procedures MATTHEW SCREENING SCREENING MAMMOGRAPHY BI 2-VIEW BREAST INC CAD Sherry Aquino, HEDIS MANAGER.MANAGER TECHNOLOGY [address] [place] [address] [facility] [address] [place] [address] Referral ID Status Reason Start Date Expiration Date Visits Requested Visits Authorized [id number] Pending Review Auto-Generat ed Referral 11/01/2021 12/01/2022 1 1 Summary Purpose Family History No Family History Records FoundNo Family History Records Found Advance Directives No Advanced Directives Records FoundNo Advanced Directives Records Found Additional Source Comments Source Comments (unrecognize d section and content) In the event this informatio n is protected by the Federal Confidentiality of Alcohol and Drug Abuse Patient Records regulations: The Federal rules restrict any use of the information to criminally investigate or prosecute any alcohol or drug abuse patient.[facility] the event this information is protected by the Federal Confidentiality of Alcohol and Drug Abuse Patient Records regulations: The Federal rules restrict any use of the information to criminally investigate or prosecute any alcohol or drug abuse patient.[facility] the event this information is protected by the Federal Confidentiality of Alcohol and Drug Abuse Patient Records regulations: The Federal rules restrict any use of the information to criminally investigate or prosecute any alcohol or drug abuse patient.[facility] HospitalIn the event this information is protected by the Federal Confidentiality of Alcohol and Drug Abuse Patient Records regulations: The Federal rules restrict any use of the information to criminally investigate or prosecute any alcohol or drug abuse patient.[facility] HospitalIn the event this information is protected by the Federal Confidentiality of Alcohol and Drug Abuse Patient Records regulations: The Federal rules restrict any use of the information to criminally investigate or prosecute any alcohol or drug abuse patient.[facility] HospitalIn the event this information is protected by the Federal Confidentiality of Alcohol and Drug Abuse Patient Records regulations: The Federal rules restrict any use of the information to criminally investigate or prosecute any alcohol or drug abuse patient.[facility] HospitalIn the event this information is protected by the Federal Confidentiality of Alcohol and Drug Abuse Patient Records regulations: The Federal rules restrict any use of the information to criminally investigate or prosecute any alcohol or drug abuse patient.[facility] HospitalIn the event this information is protected by the Federal Confidentiality of Alcohol and Drug Abuse Patient Records regulations: The Federal rules restrict any use of the information to criminally investigate or prosecute any alcohol or drug abuse patient.[facility] HospitalIn the event this information is protected by the Federal Confidentiality of Alcohol and Drug Abuse Patient Records regulations: The Federal rules restrict any use of the information to criminally investigate or prosecute any alcohol or drug abuse patient.[facility] HospitalIn the event this information is protected by the Federal Confidentiality of Alcohol and Drug Abuse Patient Records regulations: The Federal rules restrict any use of the information to criminally investigate or prosecute any alcohol or drug abuse patient.[facility] HospitalIn the event this information is protected by the Federal Confidentiality of Alcohol and Drug Abuse Patient Records regulations: The Federal rules restrict any use of the information to criminally investigate or prosecute any alcohol or drug abuse patient.[facility] HospitalIn the event this information is protected by the Federal Confidentiality of Alcohol and Drug Abuse Patient Records regulations: The Federal rules restrict any use of the information to criminally investigate or prosecute any alcohol or drug abuse patient.[facility] Reason for Visit (unrecogniz ed section and content) Reason Comments Blood Pressure Check Reason Comments Results Reason Comments Consult Specialty Diagnoses / Procedures Referred By Controman t Referred To Contact Endocrinology Diagnoses Multiple thyroid nodules Subclinical hyperthyroidism Procedures CONSULT TO ENDOCRINOLOGY OFFICE/OUTPATIENT [facility] 60-74 MINUTES Carmelita Trevizo APRN.MANAGER TECHNOLOGY [address] [place] [address] Referral ID Status Reason Start Date Expiration Date Visits Requested Visits Authorized [id number] Pending Review PCP Requested Referral 06/23/2021 06/23/2022 1 1 Reason Comments Pain (foot) Establish Care Reason Comments Results Reason Onset Date Comments Refill Request 02/03/2022 Specialty Diagnoses / Procedures Referred By Virgen t Referred To Contact Internal Medicine / INTERNAL MEDICINE Diagnoses Follow-up exam WELLNESS Procedures OFFICE/OUTPATIENT ESTABLISHED MOD MDM 30-39 MIN 4C EST WELL Self Sherry Aquino, HEDIS MANAGER.MANAGER TECHNOLOGY [address] [place] [address] Referral ID Status Reason Start Date Expiration Date Visits Re quested Visits Authorized [id number] Closed 04/03/2022 08/09/2022 1 1 Care Teams (unrecognized sec tion and content) 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 Start Date End Date Sylvia Lawson MD [address] [place], [place] [id number] PCP - General Internal Medicine 02/02/16 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 Start Date End Date Sylvia Lawson MD [address] [place], [place] [id number] PCP - General Internal Medicine 02/02/16 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 Start Date End Date Sylvia Lawson MD [address] [place], [place] [id number] PCP - General Internal Medicine 02/02/16 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 Start Date End Date Sherry Aquino, HEDIS MANAGER.MANAGER TECHNOLOGY [address], [place] [phone] PCP - General Internal Medicine 11/01/21 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 Start Date End Date Sherry Aquino, HEDIS MANAGER.MANAGER TECHNOLOGY [address], [place] [phone] PCP - General Internal Medicine 11/01/21 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 Start Date End Date Sherry Aquino, HEDIS MANAGER.MANAGER TECHNOLOGY [address], [place] [phone] PCP - General Internal Medicine 11/01/21 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 Start Date End Date Sherry Aquino, HEDIS MANAGER.MANAGER TECHNOLOGY [address], [place] [phone] PCP - General Internal Medicine 11/01/21 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 Start Date End Date Sherry Aquino, HEDIS MANAGER.MANAGER TECHNOLOGY [address], [place] [phone] PCP - General Internal Medicine 11/01/21 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 Start Date End Date Sherry Aquino, HEDIS MANAGER.MANAGER TECHNOLOGY [address], [place] [phone] PCP - General Internal Medicine 11/01/21 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 Start Date End Date Sherry Aquino, HEDIS MANAGER.MANAGER TECHNOLOGY [address], [place] [phone] PCP - General Internal Medicine 11/01/21 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 This clinical summary was aggregated from multiple sources. Caution should be exercised in using it in the provision of clinical care. This summary normalizes information from multiple sources, and as a consequence, information in this document may materially change the coding, format and clinical context of patient data. In addition, data may be omitted in some cases. CLINICAL DECISIONS SHOULD BE BASED ON THE PRIMARY CLINICAL RECORDS. [employer] [facility]. provides no warranty or guarantee of the accuracy or completeness of information in this document.
[2023-04-07 12:48] LABS: Color, Urine Yellow (Yellow); Glucose, Dipstick Normal (Normal); Ketone-Dipstick Negative (Negative); Leukocyte Esterase-Dipstick 500 /ul (Negative); Nitrite-Dipstick Negative (Negative); Occult Blood-Urine 250 /ul (Negative); Protein-Dipstick 30 mg/dl (Negative); Specific Gravity, Urine 1.015 (1.002-1.030); Urine Bilirubin Dipstick Negative (Negative); Urine Clarity Sl. Cloudy (Clear); Urine Urobilinogen Normal (Normal)
[2023-04-07 13:04] LABS: Bacteria 1+ /hpf (None Seen); Red Blood Cells-Urine 25-50 SEEN /hpf (0-5); Squamous Epithelial Cells - UA 5-10 SEEN /hpf (5-10); Transitional Epithelial - Ur 5-10 SEEN /hpf (0-5); White Blood Cells 25-50 SEEN /hpf (0-5)
== END | disposition home or self-care (01) ==
LOC: LABSPEC 11:10
PROVIDERS: PCP Nurse Practitioner; Referring Provider Nurse Practitioner; Visit Provider Nurse Practitioner
DX: N93.9 Abnormal uterine and vaginal bleeding, unspecified (principal)
CPT/HCPCS: 81001

== ENCOUNTER 2023-06-01 05:54 | Day surgery (SDC) | payer OTHER, SELFPAY ==
--- NOTE | 2023-05-31 07:30 | EMB_PTH ---
PATHOLOGY RESULTS PATIENT: AGUS DESOUZA LOC: [facility] [place] U#:[id number] AGE/SX: 57/F ROOM: RE06/01/[address]: Dr. Obdulia Anton DO : 1965 BED: DIS: 06/01/2023 SPEC #: [id number] RECD: 06/01/23 10:37 STATUS: EZIO NEENA #: [id number] STARLA: 05/31/23 07:[address]: Obdulia Anton DEPT: SURGICAL PATHOLOGY RECD BY: Rebecca Guaman ENTERED: 06/01/23 10:37 SP TYPE: ENDOM BX/C SHANE DR: Candy Dominguez, ADRIANA-C Tissues: Endometrium, NOS Procedures: Surgery Specimen Level IV HEADER OPERATION: Exam under anesthesia, attempted hysteroscopy and endometrial biopsy PRE-OP DIAGNOSIS: Postmenopausal bleeding TISSUE SUBMITTED: Endometrial biopsy MICROSCOPIC DIAGNOSIS Endometrial biopsy: Rare minute fragments of benign endometrial epithelium, insufficient for further evaluation. Scant fragments of benign endocervical mucosa with chronic inflammation and mucous. See comment. SJ:mikey 06/02/2023 COMMENT The specimen predominantly consists of mucoid tissue. Clinical correlation and appropriate follow up are necessary. MICROSCOPIC DESCRIPTION Slides are reviewed. GROSS DESCRIPTION Received in fixative is one container labeled with the patient's name and designated endometrial biopsy. The specimen consists of multiple irregular fragments of light perez soft tissue that in aggregate measure 1.0 x 0.5 x 0.1 cm. The specimen is totally submitted in one cassette. / AM:mikey 06/01/2023 TC: Cannot code CPT: 25137
[2023-06-01] VITALS (7 sets, daily range): BP systolic 107–125; BP diastolic 60–83; PULSE 77–82; RESP 16–18; TEMP 35.9–36.2; O2SAT 98; BMI 41.1
--- OUTSIDE RECORDS SUMMARY | 2023-06-01 06:52 | XMS RPT_ITS | CCD ---
Author Name Unknown Address [address] [place] [address] Organization [facility] Care Team Providers Care Wire Roller Name Role Phone Sylvia Lawson MD Primary Care Provider [phone] Gabrielle DINING ROOM CAPTAIN.Sherry HARMON Primary Care Provider Gabrielle DINING ROOM CAPTAIN.Sherry HARMON Primary Care Provider Gabrielle DINING ROOM CAPTAIN.Sherry HARMON Primary Care Provider Rodrigo Panchal Unavailable Gertrudis Mcginnis MD Unavailable SHERRY AQUINO Attending Unavailable SHERRY AQUINO Primary Care Unavailable CANDY DOMINGUEZ Primary Care Unavailable Angelica DINING ROOM CAPTAIN.Candy HARMON Primary Care Provider SATHYA ANTON Attending Unavailable SELF Referring Unavailable CANDY DOMINGUEZ Primary Care Unavailable CANDY COLEMAN Referring Unavailable CANDY DOMINGUEZ Primary Care Unavailable CANDY DOMINGUEZ Primary Care Unavailable CANDY COLEMAN Attending Unavailable CANDY DOMINGUEZ Primary Care Unavailable Allergies Allergy Classification Reported Allergen(s) Allergy Type Date of Onset Reaction(s) Facility (19 sources) Erythromycin; Translations: [ERYTHROMYCIN] Drug Allergy 09-15-2015 [facility] (19 sources) oxaprozin; Translations: [OXAPROZIN] Drug Allergy 09-22-2015 [facility] (6 sources) Penicillins; Translations: [PENICILLINS] Drug Allergy 09-15-2015 [facility] (13 sources) Penicillins Drug Allergy 09-15-2015 [facility] Medications Completed/Discontinued Medications Medication Drug Class(es) Dates Sig (Normalized) Sig (Original) brimonidine tartrate 2 mg/ml ophthalmic solution (17 sources) alpha-Adrenergic Agonist Start: 05-25-2018 brimonidine (ALPHAGAN) 0.2 % ophthalmic solution Use as directed. 0 05/25/2018 Active Problems Active Problems Problem Classification Problem Date Documented Date Episodic/Chronic Diabetes mellitus without complication (1 source) Prediabetes; Translations: [Prediabetes] Episodic Disorders of lipid metabolism (18 sources) Dyslipidemia; Translations: [Hyperlipidemia, unspecified] Onset: 02-02-2016 Chronic Essential hypertension (20 sources) Essential hypertension; Translations: [Essential (primary) hypertension] Onset: 09-22-2015 Chronic Glaucoma (18 sources) Glaucoma; Translations: [Unspecified glaucoma] Onset: 01-09-2018 Chronic Malaise and fatigue (2 sources) Fatigue; Translations: [Other fatigue] Onset: 05-02-2023 Episodic Menopausal disorders (2 sources) Postmenopausal bleeding; Translations: [Postmenopausal bleeding] Onset: 04-27-2023 05-22-2023 Chronic Nutritional deficiencies (1 source) Vitamin D deficiency; Translations: [Vitamin D deficiency, unspecified] Chronic Other circulatory disease (1 source) H/O: hypertension; Translations: [Personal history of other diseases of the circulatory system] 05-25-2023 Episodic Other connective tissue disease (2 sources) Pain in right foot; Translations: [Pain in right foot] Episodic Other nutritional; endocrine; and metabolic disorders (18 sources) Morbid obesity; Translations: [Morbid (severe) obesity due to excess calories] Onset: 10-12-2018 10-12-2018 Chronic Other nutritional; endocrine; and metabolic disorders (2 sources) Severe obesity; Translations: [Morbid (severe) obesity due to excess calories] 05-22-2023 Chronic Other screening for suspected conditions (not mental disorders or infectious disease) (1 source) Endometrium thickened; Translations: [Abnormal findings on diagnostic imaging of other specified body structures] 05-22-2023 Chronic Other screening for suspected conditions (not mental disorders or infectious disease) (7 sources) Decreased thyroid stimulating hormone level; Translations: [Other specified abnormal findings of blood chemistry] Onset: 05-11-2022 Episodic Ovarian cyst (1 source) Cyst of right ovary; Translations: [Unspecified ovarian cyst, right side] 04-27-2023 Episodic Thyroid disorders (20 sources) Multinodular goiter; Translations: [Nontoxic multinodular goiter] Onset: 11-20-2018 Chronic Past or Other Problems Problem Classification Problem Date Documented Da te Episodic/Chronic Immunizations and screening for infectious disease (6 sources) Viral screening status; Translations: [Encounter for screening for other viral diseases] Onset: 05-11-2022 Episodic Results Test Name Value Interpretation Reference Range Facil ity Vital Signs Date Time Vital Sign Value Performing Clinician Faci lity 05-22-2023 09:09-0500 Body height 165.1 cm Sathya Anton MD Work Phone: [facility] 05-22-2023 09:09-0500 Body weight 111.13 kg Sathya Anton MD Work Phone: [facility] 05-22-2023 09:09-0500 Diastolic blood pressure 72 mm[Hg] Sathya Anton MD Work Phone: [facility] 05-22-2023 09:09-0500 Heart rate 88 /min Sathya Anton MD Work Phone: [facility] 05-22-2023 09:09-0500 Respiratory rate 18 /min Sathya Anton MD Work Phone: [facility] 05-22-2023 09:09-0500 Systolic blood pressure 130 mm[Hg] Sathya Anton MD Work Phone: [facility] 05-11-2022 08:23-0500 Body height 161.3 cm Sherry Gabrielle DINING ROOM CAPTAIN.AUTISM SPECIALIST Work Phone: [facility] 05-11-2022 08:23-0500 Body temperature 98.2 [degF] Sherry Gabrielle DINING ROOM CAPTAIN.AUTISM SPECIALIST Work Phone: [facility] 05-11-2022 08:23-0500 Body weight 110.68 kg Sherry Gabrielle DINING ROOM CAPTAIN.AUTISM SPECIALIST Work Phone: [facility] 05-11-2022 08:23-0500 Diastolic blood pressure 70 mm[Hg] Sherry Gabrielle DINING ROOM CAPTAIN.AUTISM SPECIALIST Work Phone: [facility] 05-11-2022 08:23-0500 Heart rate 81 /min Sherry Gabrielle DINING ROOM CAPTAIN.AUTISM SPECIALIST Work Phone: [facility] 05-11-2022 08:23-0500 Respiratory rate 18 /min Sherry Gabrielle DINING ROOM CAPTAIN.AUTISM SPECIALIST Work Phone: [facility] 05-11-2022 08:23-0500 SaO2% (BldA) [Mass fraction] 100 % Sherry Gabrielle DINING ROOM CAPTAIN.AUTISM SPECIALIST Work Phone: [facility] 05-11-2022 08:23-0500 Systolic blood pressure 128 mm[Hg] Sherry Gabrielle DINING ROOM CAPTAIN.AUTISM SPECIALIST Work Phone: [facility] 11-01-2021 08:26-0400 Diastolic blood pressure 76 mm[Hg] Sherry Gabrielle DINING ROOM CAPTAIN.AUTISM SPECIALIST Work Phone: [facility] 11-01-2021 08:26-0400 Systolic blood pressure 120 mm[Hg] Sherry Gabrielle DINING ROOM CAPTAIN.AUTISM SPECIALIST Work Phone: [facility] 11-01-2021 07:58-0400 Body height 165.1 cm Sherry Gabrielle DINING ROOM CAPTAIN.AUTISM SPECIALIST Work Phone: [facility] 11-01-2021 07:58-0400 Body temperature 98.2 [degF] Sherry Gabrielle DINING ROOM CAPTAIN.AUTISM SPECIALIST Work Phone: [facility] 11-01-2021 07:58-0400 Body weight 108.05 kg Sherry Gabrielle DINING ROOM CAPTAIN.AUTISM SPECIALIST Work Phone: [facility] 11-01-2021 07:58-0400 Heart rate 96 /min Sherry Gabrielle DINING ROOM CAPTAIN.AUTISM SPECIALIST Work Phone: [facility] 11-01-2021 07:58-0400 Respiratory rate 18 /min Sherry Gabrielle DINING ROOM CAPTAIN.AUTISM SPECIALIST Work Phone: [facility] 11-01-2021 07:58-0400 SaO2% (BldA) [Mass fraction] 98 % Sherry Gabrielle DINING ROOM CAPTAIN.AUTISM SPECIALIST Work Phone: [facility] 08-24-2021 09:24-0400 Diastolic blood pressure 85 mm[Hg] Gertrudis Mcginnis MD Work Phone: [facility] 08-24-2021 09:24-0400 Systolic blood pressure 123 mm[Hg] Gertrudis Mcginnis MD Work Phone: [facility] 08-24-2021 09:02-0400 Body weight 106.59 kg Gertrudis Mcginnis MD Work Phone: [facility] 08-24-2021 09:02-0400 Heart rate 96 /min Gertrudis Mcginnis MD Work Phone: [facility] 08-24-2021 09:02-0400 SaO2% (BldA) [Mass fraction] 97 % Gertrudis Mcginnis MD Work Phone: [facility] 07-08-2021 10:49-0400 Diastolic blood pressure 88 mm[Hg] Mi Nurse Work Phone: [facility] 07-08-2021 10:49-0400 Heart rate 96 /min Mi Nurse Work Phone: [facility] 07-08-2021 10:49-0400 Systolic blood pressure 128 mm[Hg] Mi Nurse Work Phone: [facility] 06-23-2021 14:56-0400 Body weight 106.59 kg Carmelita Older DINING ROOM CAPTAIN.AUTISM SPECIALIST Work Phone: [facility] 06-23-2021 14:56-0400 Diastolic blood pressure 76 mm[Hg] Carmelita Older DINING ROOM CAPTAIN.AUTISM SPECIALIST Work Phone: [facility] 06-23-2021 14:56-0400 Heart rate 84 /min Carmelita Older DINING ROOM CAPTAIN.AUTISM SPECIALIST Work Phone: [facility] 06-23-2021 14:56-0400 Respiratory rate 16 /min Carmelita Older DINING ROOM CAPTAIN.AUTISM SPECIALIST Work Phone: [facility] 06-23-2021 14:56-0400 Systolic blood pressure 128 mm[Hg] Carmelita Older DINING ROOM CAPTAIN.AUTISM SPECIALIST Work Phone: [facility] Encounters Encounter Date Encounter Type Care Provider Facility Start: 05-24-2023 Preprocedural examin ation done Sathya Anton MD Work Phone: [facility] Work Phone: Start: 05-24-2023 Telephone encounter Sathya mcgee MD Work Phone: OB/Gynecology Procedures Date Procedure Procedure Detail Performing Clinician Start: 05-02-2023 Lipid 1996 panel - S nuria or Plasma Candy Coleman DINING ROOM CAPTAIN.AUTISM SPECIALIST Work Phone: Start: 05-11-2022 PFIZER-BIONTECH COVI D-19 BIVALENT BOOSTER VACCINE, AGE 12+ YR Sherry Aquino DINING ROOM CAPTAIN.AUTISM SPECIALIST Work Phone: Start: 05-09-2022 Mammography Sherry davis DINING ROOM CAPTAIN.AUTISM SPECIALIST Work Phone: Start: 11-01-2021 Radex foot complete minimum 3 views Sherry Aquino DINING ROOM CAPTAIN.AUTISM SPECIALIST Work Phone: Start: 11-01-2021 PFIZER-BIONTECH COVI D-19 VACCINE, AGE 12+ YR (DUKES TOP) Sherry Aquino DINING ROOM CAPTAIN.AUTISM SPECIALIST Work Phone: Start: 11-11-2020 Adult depression scr eening assessment Carmelita Trevizo DINING ROOM CAPTAIN.AUTISM SPECIALIST Work Phone: Start: 11-09-2020 Mammography Carmelita Trevizo DINING ROOM CAPTAIN.AUTISM SPECIALIST Work Phone: Plan of Treatment Date Care Activity Detail Author Start: 06-24-2031 Urine microalbumin profile [facility] Start: 05-02-2028 Lipid panel Lipid Screening [facility] Start: 04-13-2028 Screening for malign ant neoplasm of cervix [facility] Start: 04-25-2027 LIPID SCREEN LIPID SCREEN [facility] Start: 06-29-2026 LIPID SCREEN LIPID SCREEN [facility] Start: 05-02-2026 Diabetes Screening Diabetes Screenin g [facility] Start: 04-25-2025 DIABETES SCREEN DIABETES SCREEN [facility] Start: 08-04-2024 LIPID SCREEN LIPID SCREEN [facility] Start: 06-29-2024 DIABETES SCREEN DIABETES SCREEN [facility] Start: 05-12-2024 Screening for malign ant neoplasm of breast Mammogram Screening [facility] Start: 04-13-2024 BP Controlled (<130/80) BP Controlle d (<130/80) [facility] Start: 05-11-2023 ANNUAL PCP TEAM SUMMER BABYSITTER OMARI DISEASE VISIT ANNUAL PCP TEAM CHRONIC DISEASE VISIT [facility] Start: 05-11-2023 BP CONTROLLED (<130/80) BP CONTROLLE D (<130/80) [facility] Start: 05-09-2023 Mammography MAMMOGRAM [facility] Start: 05-09-2023 Screening for malign ant neoplasm of breast Mammogram Screening [facility] Start: 04-03-2023 Depression Assessment Depression Ass essment [facility] Start: 01-16-2023 HPV TESTING HPV TESTING [facility] Start: 01-16-2023 PAP TESTING PAP TESTING [facility] Start: 12-02-2022 Covid-19 Vaccine () Covid-19 Vaccine () [facility] Start: 11-01-2022 ANNUAL PCP TEAM SUMMER BABYSITTER OMARI DISEASE VISIT ANNUAL PCP TEAM CHRONIC DISEASE VISIT [facility] Start: 11-01-2022 BP CONTROLLED (<130/80) BP CONTROLLE D (<130/80) [facility] Start: 08-04-2022 DIABETES SCREEN DIABETES SCREEN [facility] Start: 06-29-2022 COLORECTAL CANCER SCREENING COLORECTAL CANCER SCREENING [facility] Start: 06-29-2022 FECAL OCCULT BLOOD FECAL OCCULT BLOO D [facility] Start: 06-29-2022 Screening for malign ant neoplasm of colon [facility] Start: 06-23-2022 ANNUAL PCP TEAM SUMMER BABYSITTER OMARI DISEASE VISIT ANNUAL PCP TEAM CHRONIC DISEASE VISIT [facility] Start: 06-23-2022 BP CONTROLLED (<130/80) BP CONTROLLE D (<130/80) [facility] Start: 06-23-2022 SHINGRIX VACCINE (1 of 2) COPE GRIX VACCINE (1 of 2) [facility] Immunizations Immunization Date Immunization Notes Care Provider Aren porter 05-11-2022 COVID-19 booster vaccine, age 12+ yr, bivalent (Nokori) Sherry Aquino DINING ROOM CAPTAIN.AUTISM SPECIALIST Work Phone: [facility] 01-15-2022 influenza, injectabl e, quadrivalent, contains preservative Sherry Aquino DINING ROOM CAPTAIN.AUTISM SPECIALIST Work Phone: [facility] 11-01-2021 COVID-19 vaccine, ag e 12+ yr (PFIZER-BIONTECH - DUKES TOP) Sherry Aquino DINING ROOM CAPTAIN.AUTISM SPECIALIST Work Phone: [facility] 06-23-2021 tetanus toxoid, redu ganesh diphtheria toxoid, and acellular pertussis vaccine, adsorbed Carmelita Older DINING ROOM CAPTAIN.AUTISM SPECIALIST Work Phone: [facility] 05-08-2020 COVID-19 vaccine, fu ll dose (MODERNA) Carmelita Older DINING ROOM CAPTAIN.AUTISM SPECIALIST Work Phone: [facility] 04-10-2019 COVID-19 vaccine, fu ll dose (MODERNA) Carmelita Older DINING ROOM CAPTAIN.AUTISM SPECIALIST Work Phone: [facility] Payers Date Payer Category Payer Unknown [id number] 2022 Unknown [id number] 2018 Private Health Insurance [facility] CHOICE PLUS [id number] 2018-Present [phone] [address] [place] [id number] [id number] 2018 Private Health Insurance [facility] CHOICE PLUS [id number] 2018-Present [phone] [address] [place] [id number] O [id number] Social History Date Type Detail Facility Start: 09-15-2015 End: 04-13-2023 Tobacco smoking status NHIS Ex-smoker [facility] Work Phone: End: 01-22-1993 History of tobacco use Current smoker [facility] Work Phone: Start: 09-15-2015 End: 04-13-2023 Tobacco use and exposure Smokeless tobacco non-user [facility] Work Phone: Start: 06-23-2021 End: 05-22-2023 Alcohol intake Current drinker of alcohol (finding) [facility] Start: 11-11-2020 End: 06-22-2021 History SDOH Alcohol Frequency 2 [facility] Start: 11-11-2020 End: 06-22-2021 History SDOH Alcohol Std Drinks 1 [facility] Start: 09-15-2015 History SDOH Alcohol Comment Rarely [facility] Start: 11-11-2020 History SDOH Social Connections Phone 5 [facility] Start: 11-11-2020 History SDOH Social Connections Uatsdin 3 [facility] Start: 05-12-2019 Education 12 [facility] Start: 1965 Sex Assigned At Not on file [facility] Start: 08-14-2021 End: 11-01-2021 Exposure to SARS-CoV-2 (event) Not sure [facility] End: 01-22-1993 History of tobacco use Cigarette Smoker [facility] Start: 11-11-2020 End: 04-13-2023 History of Social function [facility] Start: 11-11-2020 End: 04-13-2023 Social connection and isolation panel [facility] Do you belong to any clubs or organizations such as mosque groups, unions, fraternal or athletic groups, or school groups? Yes [facility] Are you now , , , , never or living with a partner? [facility] How often to you hav e a drink containing alcohol? Monthly or less [facility] How many standard dr inks containing alcohol do you have on a typical day? 1 or 2 [facility] How often do you hav e 6 or more drinks on 1 occasion? Never [facility] How hard is it for y ou to pay for the very basics like food, housing, medical care, and heating Not hard at all [facility] Do you feel stress - tense, restless, nervous, or anxious, or unable to sleep at night because your mind is troubled all the time - these days [OSQ] Not at all [facility] (I/We) worried wheth er (my/our) food would run out before (I/we) got money to buy more. Never true [facility] In the past 12 month s, was there a time when you were not able to pay the mortgage or rent on time? No [facility] Start: 11-16-2018 Sexual orientation Heterosexual (finding) [facility] Clinical Notes 06-23-2021 to 05-26-2023 Telephone Encounter - Nicki Gregory RN - 05/26/2023 9:03 AM ESTTelephone Encounter - Sathya Anton MD - 05/25/2023 5:42 PM ESTTelephone Encounter - Nicki Gregory RN - 05/25/2023 8:24 AM EST Note Date & Type Note Facility 05-26-2023 Miscellaneous Notes Patient notified and transferred to [facility]. Lab results faxed to [facility]. Nicki Gregory RN Order placed for EKG. Sorry I missed that the pt had labs with a [facility] provider on 05/02/23. Please fax those labs over to [facility]. Patient called office and notified of below. States she did leave message with billing department this morning and waiting their return call. She is also asking if her pre op lab work and EKG can be done at [facility] instead of [facility]? Please advise and order if okay. Nicki Gregory RN Left message for patient to call office. Also sent Mychart message. [facility] billing department called. Patient has surgery with SW on 06/01. [facility] is not contracted with her insurance. They have left her several messages to call them back. [employer] stated that if patient does not call back by end of day on Monday, 05/29, her surgery will be cancelled. Camilla Shore RN documented in this encounter [facility] 05-22-2023 History and physical note DATE OF SERVICE: May 22, 2023 PROBLEM: PMB DIAGNOSIS: PMB PAST SURGICAL HISTORY: PAST SURGICAL HISTORY Procedure Laterality Date LAMINECTOMY W/O FFD 04/04 VERT SEG LUMBAR 1991 Laminectomy, lumbar S PROBE PERC LUMBAR DISCECTOMY 1991 PAST MEDICAL HISTORY: PAST MEDICAL HISTORY Diagnosis Date Disorder of thyroid Glaucoma Herniated lumbar disc without myelopathy Hypertension SUBJECTIVE: Had 1 episode of PMB evaluated by AUTISM SPECIALIST SOCIAL HISTORY: Social History Tobacco Use Smoking status: Former Types: Cigarettes Quit date: 01/22/1993 Years since quittin.3 Smokeless tobacco: Never Vaping Use Vaping Use: Never used Substance Use Topics Alcohol use: Yes Comment: Rarely Drug use: No ALLERGIES Allergen Reactions Daypro [Oxaprozin] Hives Erythromycin Hives Penicillins Hives Current Outpatient Medications on File Prior to Visit Medication Sig dorzolamide (TRUSOPT) 2 % ophthalmic solution Use 1 Drop in the right eye two times a day. estradiol (ESTRACE) 0.01 % (0.1 mg/gram) vaginal cream Use 1 g vaginally daily for two weeks. Then twice a week. miSOPROStol (CYTOTEC) 200 mcg tablet Insert two tablets vaginally 4-6 hours prior to the procedure. hydroCHLOROthiazide (HYDRODIURIL, ESIDRIX) 12.5 mg capsule Take [...] facility-administered medications on file prior to visit. Pelvic US: IMPRESSION: Endometrium is thick, irregular, heterogeneous and vascular. Neoplasm cannot be excluded. Cervical solid focus may represent polyp or extension of uterine process. Recommend consideration for endometrial biopsy. Small amount of free pelvic fluid Uterine fibroids. Complex right ovarian cyst is O-RADS category 2 ,almost certainly benign . Nonvascular. Follow-up in 6-12 weeks. OBJECTIVE: VITALS: BP 130/72 Pulse 88 Resp 18 Ht 5' 5 (1.651 m) Wt 245 lb (111.1 kg) BMI 40.77 kg/m HEENT: Normocephalic, atraumatic, Mucus membranes moist without lesions. NECK: Soft and Supple. No adenopathy , thyromegaly or bruits. SKIN: No lesions. CHEST: No increased respiratory effort. HEART: Regular rate. ABDOMEN: Soft, non-distended. LOWER EXTREMITIES: There was no pitting edema, no palpable cords and no skin changes. ASSESSMENT: pre op, PMB, thickened endometrium PLAN: 1) Discussed r/b/a hysteroscopy, D&C, possible polypectomy. The rationale for the proposed surgery was discussed in addition to risks, benefits, and alternatives. General pre- and post-operative care was reviewed. Questions were answered. After discussion, the patient indicated a desire to proceed with the planned surgery. Sathya Anton DO Medical Decision Making: Problems: Moderate: New problem with uncertain prognosis Risk: Moderate: Decision on minor surgery w/ risk factors Medical Decision Making Level: 4 - Moderate documented in this encounter [facility] 05-15-2023 Miscellaneous Notes May 15, 2023 PID: [id number] Gabriela Gutierrez [address] [place] [id number] Dear Ms. Gutierrez, We are pleased to inform you that the results of your recent breast imaging exam on 05/12/2023 are normal. Early detection of cancer is very important. We also understand recommendations regarding breast cancer screening are controversial. Please discuss with your primary care provider which strategy is best for you and whether a mammogram is right for you. Your imaging studies and report will be kept on file at [facility] as part of your permanent medical record and are available for your continuing care. Thank you for allowing us to help in meeting your health care needs. Sincerely, Dr. Santiago Interpreting Radiologist [facility] (Normal over 40) documented in this encounter [facility] 05-12-2023 Note HNO ID: [id number] Author: SUJEY DAUGHERTY RT(Izzy) Service: ? Author Type: Technologist Type: Progress Notes Filed: 05/12/2023 09:11 Note Text: Radiology Service Progress Note PATIENT NAME: Gabriela Gutierrez DATE OF SERVICE: May 12, 2023 TIME: 9:10 AM PATIENT IDENTITY VERIFICATION COMPLETED USING TWO (2) IDENTIFIERS: Name and Date of confirmed by patient verbally. FALL SCREENING: Has the patient had 2 falls in the last year or 1 fall with injury or currently using an Ambulatory Assistive Device (Walker, Cane, Wheelchair, Crutches, etc.)? No PATIENT GENDER DATA: Female. status: : No status: NO. PATIENT RELEVANT IMPLANT DATA REVIEWED: Not Applicable PATIENT PRESENTS WITH AN IMPLANTABLE OR ATTACHED STRUCTURAL STEEL DETAILER: No RADIOLOGY DEPARTMENT: Mammography PERIPHERAL IV DATA: Not applicable SIGNED BY: RT Ferdinand(Izzy) May 12, 2023 9:10 AM [facility] 05-12-2023 History of Present illness Narrative Radiology Service Progress Note PATIENT NAME: Gabriela Gutierrez DATE OF SERVICE: May 12, 2023 TIME: 9:10 AM PATIENT IDENTITY VERIFICATION COMPLETED USING TWO (2) IDENTIFIERS: Name and Date of confirmed by patient verbally. FALL SCREENING: Has the patient had 2 falls in the last year or 1 fall with injury or currently using an Ambulatory Assistive Device (Walker, Cane, Wheelchair, Crutches, etc.)? No PATIENT GENDER DATA: Female. status: : No status: NO. PATIENT RELEVANT IMPLANT DATA REVIEWED: Not Applicable PATIENT PRESENTS WITH AN IMPLANTABLE OR ATTACHED STRUCTURAL STEEL DETAILER: No RADIOLOGY DEPARTMENT: Mammography PERIPHERAL IV DATA: Not applicable SIGNED BY: RT Ferdinand(Izzy) May 12, 2023 9:10 AM documented in this encounter [facility] 04-27-2023 Miscellaneous Notes Patient notified. Cancelled EMB with TANESHA next week. Patient does not have any upcoming vacations or dates that we need to work around. Surgery sheet to SW to complete. Patient aware our office will call her with next available surgery dates and schedule her pre op. Camilla Shore, RN Please call patient: Per KJ: I reviewed her US & discussed with SW. Recommend hysteroscopy with D&C, possible polypectomy. OK to schedule with [facility]. She was originally scheduled for EMB. Also right ovarian cyst noted on ultrasound. As of right now, we will plan to repeat in 6-12 weeks to confirm resolution. Order placed. Please assist in scheduling. Candy Coleman APRN.AUTISM SPECIALIST documented in this encounter [facility] 04-27-2023 Note HNO ID: [id number] Author: XOCHILT NAM RDMS Service: ? Author Type: Renal Dialysis Technician Type: Progress Notes Filed: 04/27/2023 08:44 Note Text: Radiology Service Progress Note PATIENT NAME: Gabriela Gutierrez DATE OF SERVICE: April 27, 2023 TIME: 8:44 AM PATIENT IDENTITY VERIFICATION COMPLETED USING TWO [...] IMPLANT DATA REVIEWED: Not Applicable RADIOLOGY DEPARTMENT: Ultrasound PERIPHERAL IV DATA: Not applicable SIGNED BY: Xochilt Nam RDMS April 27, 2023 8:44 AM [facility] 04-13-2023 Note HNO ID: [id number] Author: CANDY COLEMAN APRN.CNP Service: ? Author Type: Nurse Practitioner Type: Progress Notes Filed: 04/13/2023 13:04 Note Text: Gabriela Gutierrez is a 57 year old female who presents for problem visit of postmenopausal bleeding. HPI: Patient has been menopausal for about 10 years. On 04/07/23, she was sitting in a chair and noticed a gush of fluid. Went to the bathroom and noticed small amount of blood in her panty liner. Not sexually active. OB History T0 L0 SAB0 IAB0 Ectopic0 Multiple0 Live Births0 Bus Inspector History LMP: Postmenopausal Age at Menarche: Age at First : Age at Menopause: Bus Inspector History Comments: Sexual Activity: Never; No partner data on record Contraception: No contraception data on record PAST MEDICAL HISTORY Diagnosis Date Disorder of thyroid Glaucoma Herniated lumbar disc without myelopathy Hypertension PAST SURGICAL HISTORY Procedure Laterality Date LAMINECTOMY W/O FFD 04/04 VERT SEG LUMBAR 1991 Laminectomy, lumbar S PROBE PERC LUMBAR DISCECTOMY 1991 FAMILY HISTORY Problem Relation Age of Onset Hypertension Mother Arthritis Mother Cancer Father skin Heart Father Diabetes Father Social History Tobacco Use Smoking status: Former Types: Cigarettes Quit date: 01/22/1993 Years since quittin.2 Smokeless tobacco: Never Vaping Use Vaping Use: Never used Substance Use Topics Alcohol use: Yes Comment: Rarely Drug use: No Current Outpatient Medications Medication Sig hydroCHLOROthiazide (HYDRODIURIL, [...] eyes daily at bedtime. TO AFFECTED EYE(S) dorzolamide (TRUSOPT) 2 % ophthalmic solution Use 1 Drop in the right eye two times a day. No current facility-administered medications for this visit. Allergies As of Date: 04/13/2023 Allergen Noted Reaction DAYPRO [OXAPROZIN] 09/22/2015 Hives ERYTHROMYCIN 09/15/2015 Hives PENICILLINS 09/15/2015 Hives Fully Assessed 04/13/2023 REVIEW OF SYSTEMS Abdomen: No bloating, early satiety, indigestion, or increased flatulence. No abdominal pain, nausea, vomiting, diarrhea, or constipation. Bladder: No dysuria, gross hematuria, urinary frequency, urinary urgency, or incontinence. Breast: No breast lumps, nipple d/c, overlying skin changes, redness or skin retraction. Expanded ROS: N/A Allergies and current medication updated:Yes EXAM: BP 126/74 Pulse 101 Wt 246 lb (111.6kg) SpO2 96% GENERAL: pleasant, female in no apparent distress HEENT: Normocephalic, atraumatic, mucus membranes moist, and no lesions CHEST: Normal inspiratory effort PELVIC: external genitalia normal, normal Bartholin's glands, urethra, Kenton Vale's glands, no vulvar lesions, no cervical lesions, good vaginal support, physiologic discharge present, normal appearing perineal body and perianal region + atrophy, stenotic os NEURO: alert and oriented x3,exam grossly non-focal EXTREMITIES: normal ASSESSMENT AND PLAN: Postmenopausal bleeding - ICD9: 627.1, ICD10: N95.0 - Menopausal for about 10 years - Pap today - Agreeable to EMB today, R/B/A reviewed - Unable to perform EMB due to stenosis. Indeterminate whether blood is coming from os or cervical tissue. Atrophy noted. - To trial vaginal estrogen cream. Avoid use night before or day of EMB. - Plan for pelvic ultrasound - RTO for EMB, Cytotec prescribed. Can take Ibuprofen before. Candy Coleman APRN.CNP Medical Decision Making: Problems: Moderate: New problem with uncertain prognosis Data: Unique test(s) ordered: 2 Risk: Moderate: Drug management Medical Decision Making Level: 4 - Moderate [facility] 04-13-2023 Note HNO ID: [id number] Author: CANDY COLEMAN APRN.AUTISM SPECIALIST Service: ? Author Type: Nurse Practitioner Type: Progress Notes Filed: 04/13/2023 13:04 Note Text: Gabriela is a 57 year old who presents today for an endometrial biopsy for post menopausal bleeding. test: n/a UNIVERSAL PROTOCOL / SAFETY CHECKLIST Procedure to be Performed: Endometrial Biopsy Sign In: A Moment of CARE was completed. Personnel directly involved with the procedure wore the appropriate PPE (Personal Protective Equipment). Patient/Surrogate Stated/Verified: PATIENT VERIFIED(optional for EMERGENT procedures): Patient name, Date of , Relevant allergies, and The intended procedure Time Out Communication: Intended patient and procedure match the source documents. Consent documented and matches the intended procedure. Sign Out: SIGN OUT (optional for EMERGENT procedures): All specimen containers correctly labeled. All instruments, equipment, possible retained foreign bodies accounted for. Post-procedure follow-up management communicated and Plan of Care Visit completed when applicable. PROCEDURE: EXTERNAL GENITALIA: Normal in appearance without lesions VAGINA: Normal in appearance without lesions BIOPSY: Speculum placed into the vagina with excellent visualization of the cervix. Cervix cleaned with betadine. Anterior lip of cervix grasped with single toothed tenaculum. Cervix was too stenotic to perform procedure. Hemostasis was noted from tenaculum site. Cytotec was prescribed in anticipation for a repeat attempted EMB. Reviewed with patient and she verbalizes understanding. Candy Coleman APRN.AUTISM SPECIALIST [facility] 05-11-2022 Note HNO ID: [id number] Author: Sherry Aquino APRN.AUTISM SPECIALIST Service: ? Author Type: Nurse Practitioner Type: Progress Notes Filed: 05/11/2022 12:43 PM Note Text: SUBJECTIVE: Gabriela Gutierrez is a 56 year old female [...] with average BP's in the 130-140s/60-90s range. Gabriela works out regularly 3 times per week with Yoga. She watches her diet for sodium, low fat and low cholesterol some of the time. She is taking HCTZ 12.5 mg and lisinopril 40 mg daily. Last 3 Encounter BP Readings: Date: BP: 05/11/2022 128/70 11/01/2021 120/76 08/24/2021 123/85 Glaucoma: she is seeing opth Dr Panchal in [place] every 3 months. She is taking her eye drops daily. Hyperthyroid and thyroid nodules: she has seen endo for this. She did see Dr Mcginnis 08/24/22. She had FNA fall 2017 which [...] Neck: Vascular: N (more content not included)... [facility] 05-11-2022 Instructions Sherry Aquino APRN.[facility] - 05/11/2022 9:20 AM EST ASSESSMENT/PLAN: 1. Wellness examination - ICD9: V70.0, ICD10: Z00.00 (primary diagnosis) - Counseled on healthy diet and regular exercise - Calcium intake with supplements or by diet of 1000 mg/day for under 50, 7463-4104 mg/day for 50+ - Discussed need and [...] up for testing as ordered by Dr Mcginnis. Call and follow up with dr Mcginnis. 4. Subclinical hyperthyroidism - ICD9: 242.90, ICD10: E05.90 - See above 5. Encounter for immunization - ICD9: V03.89, ICD10: Z23 - PFIZER-BIONTStreamup COVID-19 BIVALENT BOOSTER VACCINE, AGE 12+ YR - given today in office 6. Colon cancer screening - ICD9: V76.51, ICD10: Z12.11 - COLOGUARD Sherry Aquino APRN.AUTISM SPECIALIST documented in this encounter [facility] 05-11-2022 History of Present illness Narrative SUBJECTIVE: Gabriela Gutierrez is a 56 year old female [...] with average BP's in the 130-140s/60-90s range. Gabriela works out regularly 3 times per week with Yoga. She watches her diet for sodium, low fat and low cholesterol some of the time. She is taking HCTZ 12.5 mg and lisinopril 40 mg daily. Last 3 Encounter BP Readings: Date: BP: 05/11/2022 128/70 11/01/2021 120/76 08/24/2021 123/85 Glaucoma: she is seeing opth Dr Panchal in [place] every 3 months. She is taking her eye drops daily. Hyperthyroid and thyroid nodules: she has seen endo for this. She did see Dr Mcginnis 08/24/22. She had FNA fall 2017 which [...] diet of 1000 mg/day for under 50, 3890-2368 mg/day for 50+ - Discussed need and [...] up for testing as ordered by Dr Mcginnis. Call and follow up with Dr Mcginnis. - numbers given to patient to call and schedule 4. Subclinical hyperthyroidism - ICD9: 242.90, ICD10: E05.90 - See above 5. Encounter for immunization - ICD9: V03.89, ICD10: Z23 - PFIZER-BIONTECH COVID-19 BIVALENT BOOSTER VACCINE, AGE 12+ YR - given today in office 6. Colon cancer screening - ICD9: V76.51, ICD10: Z12.11 - declines colonoscopy, agrees to cologuard - COLOGUARD Sherry Aquino APRN.AUTISM SPECIALIST documented in this encounter [facility] 05-10-2022 Miscellaneous Notes Called pt left VM with results Elle Melendez MA ----- Message from Sherry Aquino APRN.AUTISM SPECIALIST sent at 05/10/2022 1:42 PM EST ----- Mammogram negative IMPRESSION IMPRESSION: NEGATIVE There is no mammographic evidence of malignancy. A 1 year screening mammogram is recommended. documented in this encounter [facility] 04-27-2022 Miscellaneous Notes Called pt let her know the results and for her to f/u with Dr. Mcginnis recommended she send her a my chart message Elle Melendez MA Called pt left VM for her to call the office for her lab results Elle Melendez MA ----- Message from Sherry Aquino APRN.AUTISM SPECIALIST sent at 04/26/2022 7:06 AM EST ----- HGB A1C has increased. Still prediabetic but borderline diabetic now. Please review diet with pt and importance of exercise, wt loss, decrease portions sizes etc to slow progression to diabetes ----- Message from Sherry Aquino APRN.AUTISM SPECIALIST sent at 04/25/2022 12:30 PM EST ----- BMP stable. Creatinine wnl Lipids- TC and LDL remain slighlty elevated but improved from last year Tsh is still very low. Follow up with Dr Mcginnis. documented in this encounter [facility] 02-03-2022 Miscellaneous Notes Last O V11/01/21 Apt [...] Elle Melendez MA documented in this encounter [facility] 11-08-2021 Miscellaneous Notes Patient is informed. rCista Neely MA ----- Message from Sherry Aquino APRN.AUTISM SPECIALIST sent at 11/04/2021 8:54 AM EDT ----- No fractures, mild arthritis No heel spurs identified. Most likely planter fasciitis as we discussed. Poc as we discussed at ov documented in this encounter [facility] 11-01-2021 Instructions Sherry Aquino APRN.AUTISM SPECIALIST - 11/01/2021 9:03 AM EDT ASSESSMENT/PLAN: 1. [...] immunization - ICD9: V03.89, ICD10: Z23 - PFIZER-BIONT[employer]up COVID-19 VACCINE, AGE 12+ YR (DUKES TOP) 4. Encounter for screening mammogram for malignant neoplasm of breast - ICD9: V76.12, ICD10: Z12.31 - MATTHEW SCREENING Sherry M Gabrielle, DINING ROOM CAPTAIN.AUTISM SPECIALIST Plantar Fasciitis What is plantar fasciitis? Plantar [...] especially if you walk a lot or community health program coordinator shoes with poor cushioning. If the arches [...] and foot stretching exercises regularly. Developed by [employer]. Adult Advisor 2013.1 published by [employer]. Last modified: 2012-11-05 Last reviewed: 2012-10-19 This content is reviewed periodically and is subject to change as new health information becomes available. The information is intended to inform and educate and is not a replacement for medical evaluation, advice, diagnosis or treatment by a healthcare professional. References Adult Advisor 2014.1 Index Copyright 2014 [employer] and/or one of its subsidiaries. All rights [...] pickup: With your heel on the ground, sisal picker a towel with your toes. Release. Repeat [...] Rest 30 seconds between sets. Developed by [employer]. Adult Advisor 2014.1 published by [employer]. Last modified: 2013-02-04 Last reviewed: 2011-08-02 This content is reviewed periodically and is subject to change as new health information becomes available. The information is intended to inform and educate and is not a replacement for medical evaluation, advice, diagnosis or treatment by a healthcare professional. References Adult Advisor 2013.1 Index Copyright 2014 [employer] and/or one of its subsidiaries. All rights reserved. documented in this encounter [facility] 11-01-2021 History of Present illness Narrative Images from the original note were not included. SUBJECTIVE: Gabriela Gutierrez is a 55 year old female [...] regimen. She does not check BP's generally. Gabriela denies regular aerobic exercise. She watches her diet for sodium, low fat and low cholesterol some of the time. She is taking HCTZ 12.5 mg daily and lisinopril 40 mg daily. Last 3 Encounter BP Readings: Date: BP: 11/01/2021 120/76 08/24/2021 123/85 07/08/2021 128/88 Thyroid nodules, subclinical hyperthyroidism: she is seeing Dr Mcginnis for management. She had FNA in fall [...] Abs Lymph 1.00 - 4.00 k/uL 1.43 Carolina% % 8.8 Abs Carolina <0.87 k/uL 0.63 Eosin% % 2.8 Abs [...] ICD10: Z12.31 - MATTHEW SCREENING Sherry Aquino APRN.AUTISM SPECIALIST documented in this encounter [facility] 08-24-2021 Instructions Gertrudis Mcginnis MD - 08/24/2021 9:17 AM EDT Schedule thyroid ultrasound and radioactive iodine scan at [facility] Get thyroid labs drawn I will send you a message in my chart once the lab results become available Follow up in 3 months, this can be a virtual visit. documented in this encounter [facility] 08-24-2021 History of Present illness Narrative REFERRING PHYSICIAN: Carmelita Trevizo [address] [facility] [address] REASON FOR REFERRAL:Thyroid nodule My final recommendations will be communicated back to the requesting physician by way of shared Medical record or a letter via [place] mail SUBJECTIVE: Gabriela Gutierrez is a 55 year old female [...] this can be a virtual visit Gertrudis Mcginnis MD 08/24/21 documented in this encounter [facility] 07-09-2021 Miscellaneous Notes Called Patient to schedule NM scan but she states she wants to wait until after her ENDO appointment in [place] in August Please let patient know we are ordering her a scan of her thyroid and also additional lab work. Thank you Carmelita Trevizo APRN.FAUSTINO Tests were ordered Please assist patient is getting her the apts. documented in this encounter [facility] 07-08-2021 History of Present illness Narrative Manual [...] Rosanna Hurd LPN documented in this encounter [facility] 06-23-2021 History of Present illness Narrative CC: Patient presents with: Yearly Exam: Yearly Exam HPI Gabriela Gutierrez is a 55 year old female [...] as prescribed. Sees an eye doctor in [place] every 3 months. No change in vision [...] BP's in the 120/70s-140s/80s. Mostly 140s/80s. range. Gabriela denies regular aerobic exercise. She watches her [...] Carmelita Trevizo APRN.CNP documented in this encounter [facility] Diagnosis Essential hypertension with goal blood pressure less than 140/90- Primary [facility]* Diagnosis Hyperthyroidism- Primary Thyrotoxicosis without mention of goiter or other cause, without mention of thyrotoxic crisis or storm [facility] Diagnosis Multiple thyroid nodules Nontoxic multinodular goiter Subclinical hyperthyroidism Thyrotoxicosis without mention of goiter or other cause, without mention of thyrotoxic crisis or storm [facility] Diagnosis Right foot pain- Primary Pain in limb Essential hypertension with goal blood pressure less than 140/90 Encounter for immunization Need for other specified prophylactic vaccination against single bacterial disease Encounter for screening mammogram for malignant neoplasm of breast Other screening mammogram [facility] Diagnosis Right foot pain Pain in limb [facility] Diagnosis Essential hypertension with goal blood pressure less than 140/90 documented in this encounter [facility] note* Diagnosis Essential hypertension with goal blood pressure less than 140/90 Morbid obesity (HCC) Morbid obesity Subclinical hyperthyroidism Thyrotoxicosis without mention of goiter or other cause, without mention of thyrotoxic crisis or storm documented in this encounter [facility] note* Diagnosis Wellness examination- Primary Essential hypertension with goal blood pressure less than 140/90 Multiple thyroid nodules Nontoxic multinodular goiter Subclinical hyperthyroidism Thyrotoxicosis without mention of goiter or other cause, without mention of thyrotoxic crisis or storm Encounter for immunization Need for other specified prophylactic vaccination against single bacterial disease Colon cancer screening Special screening for malignant neoplasms, colon documented in this encounter [facility] note* Diagnosis Ovarian cyst, right- Primary Other and unspecified ovarian cyst documented in this encounter [facility] note* Diagnosis Encounter for screening mammogram for malignant neoplasm of breast Other screening mammogram documented in this encounter [facility] note* Diagnosis PMB (postmenopausal bleeding)- Primary Postmenopausal bleeding Thickened endometrium Nonspecific (abnormal) findings on radiological and other examination of genitourinary organs Class 3 severe obesity with body mass index (BMI) of 40.0 to 44.9 in adult, unspecified obesity type, unspecified whether serious comorbidity present (HCC) Pre-op exam Preoperative examination, unspecified documented in this encounter [facility] note* Diagnosis Pre-op exam- Primary Preoperative examination, unspecified Class 3 severe obesity with body mass index (BMI) of 40.0 to 44.9 in adult, unspecified obesity type, unspecified whether serious comorbidity present (HCC) History of hypertension Personal history of other diseases of circulatory system documented in this encounter [facility] for referral (narrative)* Diagnostic Procedure Only (Routine) - Pending Review Specialty Diagnoses / Procedures Referred By Virgen t Referred To Contact MOLECULAR & FUNCTIONAL IMAGING Diagnoses Hyperthyroidism Procedures NM THY UPTAKE AND SCAN THYROID UPTAKE W/BLOOD FLOW SNGLE/MULT Sylvia Murillo MD [address] [place] [address] Molecular & Functional Imaging [address] [place] [address] Referral ID Status Reason Start Date Expiration Date Visits Requested Visits Authorized [id number] Pending Review Auto-Generat ed Referral 07/02/2021 08/01/2022 1 1 [facility] for referral (narrative)* Diagnostic Procedure Only (Routine) - Pending Review Specialty Diagnoses / Procedures Referred By Contac t Referred To Contact US IMAGING Diagnoses Multiple thyroid nodules Procedures US THYROID/PARATHYROID US SOFT TISSUE HEAD & NECK REAL TIME IMGE Gertrudis Ferrera MD [address] [address] Us Imaging Referral ID Status Reason Start Date Expiration Date Visits Requested Visits Authorized [id number] Pending Review Auto-Generat ed Referral 08/24/2021 09/23/2022 1 1 [facility] for referral (narrative)* Diagnostic Procedure Only (Routine) - Closed Specialty Diagnoses / Procedures Referred By Contac t Referred To Contact XR IMAGING Diagnoses Right foot pain Procedures XR FOOT GENERAL 3V AP/LAT/OBL RIGHT RADEX FOOT COMPLETE MINIMUM 3 VIEWS Sherry Aquino APRN.AUTISM SPECIALIST [address] [place] [address] Xr Imaging Referral ID Status Reason Start Date Expiration Date V isits Requested Visits Authorized [id number] Closed Auto-Generate d Referral 11/01/2021 12/01/2022 1 1 [facility] for referral (narrative)* Diagnostic Procedure Only (Routine) - Pending Review Specialty Diagnoses / Procedures Referred By Contac t Referred To Contact US IMAGING Diagnoses Ovarian cyst, right Procedures US FEMALE PELVIS TRANSVAG US TRANSVAGINAL Candy Coleman APRN.AUTISM SPECIALIST [address] [address] [facility] [address] Referral ID Status Reason Start Date Expiration Date Visits Requested Visits Authorized [id number] Pending Review Auto-Generat ed Referral 04/27/2023 05/26/2024 1 1 [facility] for referral (narrative)* Outpatient Procedure (Routine) - Pending Review Specialty Diagnoses / Procedures Referred By Contac t Referred To Contact [facility] Diagnoses Pre-op exam Class 3 severe obesity with body mass index (BMI) of 40.0 to 44.9 in adult, unspecified obesity type, unspecified whether serious comorbidity present (HCC) History of hypertension Procedures ECG COMPLETE ECG ROUTINE ECG W/LEAST 12 LDS W/I&R Sathya Anotn MD [address] [place] [address] [facility] [address] [place] [address] Referral ID Status Reason Start Date Expiration Date Visits Requested Visits Authorized [id number] Pending Review Auto-Generat ed Referral 05/25/2023 05/24/2024 1 1 [facility] for visit Narrative* Diagnostic Procedure Only (Routine) - Closed Specialty Diagnoses / Procedures Referred By Virgen t Referred To Contact XR IMAGING Diagnoses Right foot pain Procedures XR FOOT GENERAL 3V AP/LAT/OBL RIGHT RADEX FOOT COMPLETE MINIMUM 3 VIEWS Sherry Aquino APRN.AUTISM SPECIALIST [address] [place] [address] Xr Imaging Referral ID Status Reason Start Date Expiration Date V isits Requested Visits Authorized [id number] Closed Auto-Generate d Referral 11/01/2021 12/01/2022 1 1 [facility] for visit Narrative* Diagnostic Procedure Only (Routine) - Closed Specialty Diagnoses / Procedures Referred By Virgen t Referred To Contact Radiology / RADIO DXMAM [facility] Diagnoses Encounter for screening mammogram for breast cancer Procedures SCREENING MAMMOGRAPHY BI 2-VIEW BREAST INC CAD MAMMOGRAM SCREENING Candy Coleman APRN.AUTISM SPECIALIST [address] [place] [address] Radio Mammo [facility] [address] [place] [address] Referral ID Status Reason Start Date Expiration Date Visits Re quested Visits Authorized [id number] Closed 05/12/2023 04/02/2024 1 1 [facility] Reason for Referral Specialty Diagnoses / Procedures Referred By Contac t Referred To Contact Endocrinology Diagnoses Multiple thyroid nodules Subclinical hyperthyroidism Procedures CONSULT TO ENDOCRINOLOGY OFFICE/OUTPATIENT [facility] MDM 60-74 MINUTES Older, HEIDI MaeN.AUTISM SPECIALIST [address] [place] [address] Referral ID Status Reason Start Date Expiration Date Visits Requested Visits Authorized [id number] Pending Review PCP Requested Referral 06/23/2021 06/23/2022 1 1 Specialty Diagnoses / Procedures Referred By Contac t Referred To Contact Podiatry Diagnoses Right foot pain Procedures CONSULT TO PODIATRY Sherry Aquino, DINING ROOM CAPTAIN.AUTISM SPECIALIST [address] [place] [address] Jacob Kan [address] [place] [address] Referral ID Status Reason Start Date Expiration Date Visits Requested Visits Authorized [id number] Ref Not Required PCP Requested Referral 11/01/2021 01/30/2022 3 3 Specialty Diagnoses / Procedures Referred By Contac t Referred To Contact XR IMAGING Diagnoses Right foot pain Procedures XR FOOT GENERAL 3V AP/LAT/OBL RIGHT RADEX FOOT COMPLETE MINIMUM 3 VIEWS Sherry Aquino DINING ROOM CAPTAIN.AUTISM SPECIALIST [address] [place] [address] Xr Imaging Referral ID Status Reason Start Date Expiration Date V isits Requested Visits Authorized [id number] Closed Auto-Generate d Referral 11/01/2021 12/01/2022 1 1 Specialty Diagnoses / Procedures Referred By Contac t Referred To Contact BR IMAGING Diagnoses Encounter for screening mammogram for malignant neoplasm of breast Procedures MATTHEW SCREENING SCREENING MAMMOGRAPHY BI 2-VIEW BREAST INC Sherry Mcdaniel, DINING ROOM CAPTAIN.AUTISM SPECIALIST [address] [place] [address] [facility] [address] [place] [address] Referral ID Status Reason Start Date Expiration Date Visits Requested Visits Authorized [id number] Pending Review Auto-Generat ed Referral 11/01/2021 12/01/2022 [...] or prosecute any alcohol or drug abuse patient.[facility] the event this information is protected by the Federal Confidentiality of Alcohol and Drug Abuse Patient Records regulations: The Federal rules restrict any use of the information to criminally investigate or prosecute any alcohol or drug abuse patient.[facility] Health[facility] the event this information is protected by the Federal Confidentiality of Alcohol and Drug Abuse Patient Records regulations: The Federal rules restrict any use of the information to criminally investigate or prosecute any alcohol or drug abuse patient.[facility] the event this information is protected by the Federal Confidentiality of Alcohol and Drug Abuse Patient Records regulations: The Federal rules restrict any use of the information to criminally investigate or prosecute any alcohol or drug abuse patient.Premier HealthIn the event this information is protected by the Federal Confidentiality of Alcohol and Drug Abuse Patient Records regulations: The Federal rules restrict any use of the information to criminally investigate or prosecute any alcohol or drug abuse patient.Premier HealthIn the event this information is protected by the Federal Confidentiality of Alcohol and Drug Abuse Patient Records regulations: The Federal rules restrict any use of the information to criminally investigate or prosecute any alcohol or drug abuse patient.Premier HealthIn the event this information is protected by the Federal Confidentiality of Alcohol and Drug Abuse Patient Records regulations: The Federal rules restrict any use of the information to criminally investigate or prosecute any alcohol or drug abuse patient.Premier HealthIn the event this information is protected by the Federal Confidentiality of Alcohol and Drug Abuse Patient Records regulations: The Federal rules restrict any use of the information to criminally investigate or prosecute any alcohol or drug abuse patient.Premier HealthIn the event this information is protected by the Federal Confidentiality of Alcohol and Drug Abuse Patient Records regulations: The Federal rules restrict any use of the information to criminally investigate or prosecute any alcohol or drug abuse patient.Premier HealthIn the event this information is protected by the Federal Confidentiality of Alcohol and Drug Abuse Patient Records regulations: The Federal rules restrict any use of the information to criminally investigate or prosecute any alcohol or drug abuse patient.Premier HealthIn the event this information is protected by the Federal Confidentiality of Alcohol and Drug Abuse Patient Records regulations: The Federal rules restrict any use of the information to criminally investigate or prosecute any alcohol or drug abuse patient.Premier HealthIn the event this information is protected by the Federal Confidentiality of Alcohol and Drug Abuse Patient Records regulations: The Federal rules restrict any use of the information to criminally investigate or prosecute any alcohol or drug abuse patient.Premier HealthIn the event this information is protected by the Federal Confidentiality of Alcohol and Drug Abuse Patient Records regulations: The Federal rules restrict any use of the information to criminally investigate or prosecute any alcohol or drug abuse patient.Premier HealthIn the event this information is protected by the Federal Confidentiality of Alcohol and Drug Abuse Patient Records regulations: The Federal rules restrict any use of the information to criminally investigate or prosecute any alcohol or drug abuse patient.Premier HealthIn the event this information is protected by the Federal Confidentiality of Alcohol and Drug Abuse Patient Records regulations: The Federal rules restrict any use of the information to criminally investigate or prosecute any alcohol or drug abuse patient.Premier HealthIn the event this information is protected by the Federal Confidentiality of Alcohol and Drug Abuse Patient Records regulations: The Federal rules restrict any use of the information to criminally investigate or prosecute any alcohol or drug abuse patient.Premier HealthIn the event this information is protected by the Federal Confidentiality of Alcohol and Drug Abuse Patient Records regulations: The Federal rules restrict any use of the information to criminally investigate or prosecute any alcohol or drug abuse patient.[facility] Reason for Visit (unrecogniz ed section and content) Reason Comments Blood Pressure Check Reason Comments Results Reason Comments Consult Specialty Diagnoses / Procedures Referred By Contac t Referred To Contact Endocrinology Diagnoses Multiple thyroid nodules Subclinical hyperthyroidism Procedures CONSULT TO ENDOCRINOLOGY OFFICE/OUTPATIENT NEW HIGH MDM 60-74 MINUTES Carmelita Trevizo APRN.AUTISM SPECIALIST [address] [place] [address] Referral ID Status Reason Start Date Expiration Date Visits Requested Visits Authorized [id number] Pending Review PCP Requested Referral 06/23/2021 06/23/2022 1 1 Reason Comments Pain (foot) Establish Care Reason Comments Results Reason Onset Date Comments Refill Request 02/03/2022 Specialty Diagnoses / Procedures Referred By Contac t Referred To Contact Internal Medicine / INTERNAL MEDICINE Diagnoses Follow-up exam WELLNESS Procedures OFFICE/OUTPATIENT ESTABLISHED MOD MDM 30-39 MIN 4C EST WELL Self Sherry Aquino, DINING ROOM CAPTAIN.AUTISM SPECIALIST [address] [place] [address] Referral ID Status Reason Start Date Expiration Date Visits Re quested Visits Authorized [id number] Closed 04/03/2022 08/09/2022 1 1 Reason Comments Pre-Op Visit Specialty Diagnoses / Procedures Referred By Contac t Referred To Contact Parts Advisor / [employer] Diagnoses Encounter for screening for malignant neoplasm of cervix surgery @[facility] Procedures OFFICE/OUTPATIENT ESTABLISHED MOD MDM 30 MIN PRE OP Self Sathya Anton MD [address] [place] [address] Referral ID Status Reason Start Date Expiration Date Visits Re quested Visits Authorized [id number] Closed 05/22/2023 04/02/2024 1 1 Reason Comments Preparations For Surgery Care Teams (unrecognized sec tion and content) Wire Roller Relationship Specialty Start Date End Date Sylvia Lawson MD [address] [place] [address] PCP - General Internal Medicine 02/02/16 Wire Roller Relationship Specialty Start Date End Date Sylvia Lawson MD [address] [place] [address] PCP - General Internal Medicine 02/02/16 Wire Roller Relationship Specialty Start Date End Date Sylvia Lawson MD [address] [place] [address] PCP - General Internal Medicine 02/02/16 Wire Roller Relationship Specialty Start Date End Date Sherry Aquino, DINING ROOM CAPTAIN.AUTISM SPECIALIST [address] [place], [place] [id number] PCP - General Internal Medicine 11/01/21 Wire Roller Relationship Specialty Start Date End Date Sherry Aquino, DINING ROOM CAPTAIN.AUTISM SPECIALIST [address] [facility] [place] [address] PCP - General Internal Medicine 11/01/21 Wire Roller Relationship Specialty Start Date End Date Sherry Aquino, DINING ROOM CAPTAIN.AUTISM SPECIALIST [address] [facility] [place] [address] PCP - General Internal Medicine 11/01/21 Wire Roller Relationship Specialty Start Date End Date Sherry Aquino, DINING ROOM CAPTAIN.AUTISM SPECIALIST [address] [facility] [place] [address] PCP - General Internal Medicine 11/01/21 Wire Roller Relationship Specialty Start Date End Date Sherry Aquino, DINING ROOM CAPTAIN.AUTISM SPECIALIST [address] [facility] [place] [address] PCP - General Internal Medicine 11/01/21 Wire Roller Relationship Specialty Start Date End Date Sherry Aquino, DINING ROOM CAPTAIN.AUTISM SPECIALIST [address] [place] [address] PCP - General Internal Medicine 11/01/21 Wire Roller Relationship Specialty Start Date End Date Sherry Aquino, DINING ROOM CAPTAIN.AUTISM SPECIALIST [address] [facility] [place] [address] PCP - General Internal Medicine 11/01/21 Wire Roller Relationship Specialty Start Date End Date Sherry Aquino, DINING ROOM CAPTAIN.AUTISM SPECIALIST [address] [facility] [place] [address] PCP - General Internal Medicine 11/01/21 Rodrigo Panchal [address] [place], [place] [id number] Optometry 05/11/22 Gertrudis Mcginnis MD [address] [address] Endocrinology 05/11/22 Wire Roller Relationship Specialty Start Date End Date Candy Dominguez, DINING ROOM CAPTAIN.AUTISM SPECIALIST [address] [facility] [address] [place] [address] PCP - General Cardiology 04/07/23 Rodrigo Panchal [address] [place] [address] Optometry 05/11/22 Gertrudis Mcginnis MD [address] [address] Endocrinology 05/11/22 Wire Roller Relationship Specialty Start Date End Date Candy Dominguez, DINING ROOM CAPTAIN.AUTISM SPECIALIST [address] [facility] [address] [place] [address] PCP - General Cardiology 04/07/23 Rodrigo Panchal [address] [place] [address] Optometry 05/11/22 Gertrudis Mcginnis MD [address] [address] Endocrinology 05/11/22 Wire Roller Relationship Specialty Start Date End Date Candy Dominguez, DINING ROOM CAPTAIN.AUTISM SPECIALIST [address] [facility] [address] [place] [address] PCP - General Cardiology 04/07/23 Rodrigo Panchal [address] [place] [address] Optometry 05/11/22 Gertrudis Mcginnis MD [address] [address] Endocrinology 05/11/22 Wire Roller Relationship Specialty Start Date End Date Candy Dominguez, DINING ROOM CAPTAIN.AUTISM SPECIALIST [address] [facility] [address] [place] [address] PCP - General Cardiology 04/07/23 Rodrigo Panchal [address] [place], [place] [id number] Optometry 05/11/22 Gertrudis Mcginnis MD [address] [address] Endocrinology 05/11/22 Wire Roller Relationship Specialty Start Date End Date Candy Dominguez, DINING ROOM CAPTAIN.AUTISM SPECIALIST [address] [facility] [address] [place] [address] PCP - General Cardiology 04/07/23 Rodrigo Panchal [address] [place] [address] Optometry 05/11/22 Gertrudis Mcginnis MD [address] [address] Endocrinology 05/11/22 INFORMATION SOURCE (unrecogn ized section and content) DATE CREATED AUTHOR AUTHOR'S ASUNCION ATION 05/22/2023 [facility] FOR RECORDS PERTAINING TO PATIENTS WHO ARE [...] BE BASED ON THE PRIMARY CLINICAL RECORDS. [facility] [employer] [facility]. provides no warranty or guarantee of the accuracy or completeness of information in this document.
--- OUTSIDE RECORDS SUMMARY | 2023-06-01 07:04 | XMS RPT_ITS | CCD ---
Author Name Unknown Address [address] [place] [address] Organization [facility] Care Team Providers Care Two Needle Machine Operator Name Role Phone Sylvia Lawson MD Primary Care Provider Gabrielle SURGICAL ELASTIC KNITTER HAND FRAME.Sherry HARMON Primary Care Provider Gabrielle SURGICAL ELASTIC KNITTER HAND FRAME.Sherry HARMON Primary Care Provider Gabrielle SURGICAL ELASTIC KNITTER HAND FRAME.Sherry HARMON Primary Care Provider Rodrigo Panchal Unavailable Gertrudis Mcginnis MD Unavailable SHERRY AQUINO Attending Unavailable SHERRY AQUINO Primary Care Unavailable CANDY DOMINGUEZ Primary Care Unavailable Angelica SURGICAL ELASTIC KNITTER HAND FRAME.Candy HARMON Primary Care Provider SATHYA ANTON Attending Unavailable SELF Referring Unavailable CANDY DOMINGUEZ Primary Care Unavailable CANDY COLEMAN Referring Unavailable CANDY DOMINGUEZ Primary Care Unavailable CANDY DOMINGUEZ Primary Care Unavailable CANDY COLEMAN Attending Unavailable CANDY DOMINGUEZ Primary Care Unavailable Allergies Allergy Classification Reported Allergen(s) Allergy Type Date of Onset Reaction(s) Facility (19 sources) Erythromycin; Translations: [ERYTHROMYCIN] Drug Allergy 09-15-2015 [facility] (19 sources) oxaprozin; Translations: [OXAPROZIN] Drug Allergy 09-22-2015 [facility] (6 sources) Penicillins; Translations: [PENICILLINS] Drug Allergy 09-15-2015 [facility] (13 sources) Penicillins Drug Allergy 09-15-2015 [facility] Medications Completed/Discontinued Medications Medication Drug Class(es) [...] 165.1 cm Sathya Anton MD Work Phone: [facility] 05-22-2023 09:09-0500 Body weight 111.13 kg Sathya Anton MD Work Phone: [facility] 05-22-2023 09:09-0500 Diastolic blood pressure 72 mm[Hg] Sathya Anton MD Work Phone: [facility] 05-22-2023 09:09-0500 Heart rate 88 /min Sathya Anton MD Work Phone: [facility] 05-22-2023 09:09-0500 Respiratory rate 18 /min Sathya Anton MD Work Phone: [facility] 05-22-2023 09:09-0500 Systolic blood pressure 130 mm[Hg] Sathya Anton MD Work Phone: [facility] 05-11-2022 08:23-0500 Body height 161.3 cm Sherry Gabrielle SURGICAL ELASTIC KNITTER HAND FRAME.BUDGET TECHNICIAN Work Phone: [facility] 05-11-2022 08:23-0500 Body temperature 98.2 [degF] Sherry Gabrielle SURGICAL ELASTIC KNITTER HAND FRAME.BUDGET TECHNICIAN Work Phone: [facility] 05-11-2022 08:23-0500 Body weight 110.68 kg Sherry Gabrielle SURGICAL ELASTIC KNITTER HAND FRAME.BUDGET TECHNICIAN Work Phone: [facility] 05-11-2022 08:23-0500 Diastolic blood pressure 70 mm[Hg] Sherry Gabrielle SURGICAL ELASTIC KNITTER HAND FRAME.BUDGET TECHNICIAN Work Phone: [facility] 05-11-2022 08:23-0500 Heart rate 81 /min Sherry Gabrielle SURGICAL ELASTIC KNITTER HAND FRAME.BUDGET TECHNICIAN Work Phone: [facility] 05-11-2022 08:23-0500 Respiratory rate 18 /min Sherry Gabrielle SURGICAL ELASTIC KNITTER HAND FRAME.BUDGET TECHNICIAN Work Phone: [facility] 05-11-2022 08:23-0500 SaO2% (BldA) [Mass fraction] 100 % Sherry Gabrielle SURGICAL ELASTIC KNITTER HAND FRAME.BUDGET TECHNICIAN Work Phone: [facility] 05-11-2022 08:23-0500 Systolic blood pressure 128 mm[Hg] Sherry Gabrielle SURGICAL ELASTIC KNITTER HAND FRAME.BUDGET TECHNICIAN Work Phone: [facility] 11-01-2021 08:26-0400 Diastolic blood pressure 76 mm[Hg] Sherry Gabrielle SURGICAL ELASTIC KNITTER HAND FRAME.BUDGET TECHNICIAN Work Phone: [facility] 11-01-2021 08:26-0400 Systolic blood pressure 120 mm[Hg] Sherry Gabrielle SURGICAL ELASTIC KNITTER HAND FRAME.BUDGET TECHNICIAN Work Phone: [facility] 11-01-2021 07:58-0400 Body height 165.1 cm Sherry Gabrielle SURGICAL ELASTIC KNITTER HAND FRAME.BUDGET TECHNICIAN Work Phone: [facility] 11-01-2021 07:58-0400 Body temperature 98.2 [degF] Sherry Gabrielle SURGICAL ELASTIC KNITTER HAND FRAME.BUDGET TECHNICIAN Work Phone: [facility] 11-01-2021 07:58-0400 Body weight 108.05 kg Sherry Gabrielle SURGICAL ELASTIC KNITTER HAND FRAME.BUDGET TECHNICIAN Work Phone: [facility] 11-01-2021 07:58-0400 Heart rate 96 /min Sherry Gabrielle SURGICAL ELASTIC KNITTER HAND FRAME.BUDGET TECHNICIAN Work Phone: [facility] 11-01-2021 07:58-0400 Respiratory rate 18 /min Sherry Gabrielle SURGICAL ELASTIC KNITTER HAND FRAME.BUDGET TECHNICIAN Work Phone: [facility] 11-01-2021 07:58-0400 SaO2% (BldA) [Mass fraction] 98 % Sherry Gabrielle SURGICAL ELASTIC KNITTER HAND FRAME.BUDGET TECHNICIAN Work Phone: [facility] 08-24-2021 09:24-0400 Diastolic blood pressure 85 mm[Hg] Gertrudis Mcginnis MD Work Phone: [facility] 08-24-2021 09:24-0400 Systolic blood pressure 123 mm[Hg] Gertrudis Mcginnis MD Work Phone: [facility] 08-24-2021 09:02-0400 Body weight 106.59 kg Gertrudis Mcginnis MD Work Phone: [facility] 08-24-2021 09:02-0400 Heart rate 96 /min Gertrudis Mcginnis MD Work Phone: [facility] 08-24-2021 09:02-0400 SaO2% (BldA) [Mass fraction] 97 % Gertrudis Mcginnis MD Work Phone: [facility] 07-08-2021 10:49-0400 Diastolic blood pressure 88 mm[Hg] Mi Nurse Work Phone: [facility] 07-08-2021 10:49-0400 Heart rate 96 /min Mi Nurse Work Phone: [facility] 07-08-2021 10:49-0400 Systolic blood pressure 128 mm[Hg] Mi Nurse Work Phone: [facility] 06-23-2021 14:56-0400 Body weight 106.59 kg Carmelita Older SURGICAL ELASTIC KNITTER HAND FRAME.BUDGET TECHNICIAN Work Phone: [facility] 06-23-2021 14:56-0400 Diastolic blood pressure 76 mm[Hg] Carmelita Older SURGICAL ELASTIC KNITTER HAND FRAME.BUDGET TECHNICIAN Work Phone: [facility] 06-23-2021 14:56-0400 Heart rate 84 /min Carmelita Older SURGICAL ELASTIC KNITTER HAND FRAME.BUDGET TECHNICIAN Work Phone: [facility] 06-23-2021 14:56-0400 Respiratory rate 16 /min Carmelita Older SURGICAL ELASTIC KNITTER HAND FRAME.BUDGET TECHNICIAN Work Phone: [facility] 06-23-2021 14:56-0400 Systolic blood pressure 128 mm[Hg] Carmelita Older SURGICAL ELASTIC KNITTER HAND FRAME.BUDGET TECHNICIAN Work Phone: [facility] Encounters Encounter Date Encounter Type Care Provider Facility Start: 05-24-2023 Preprocedural examin ation done Sathya Anton MD Work Phone: [facility] Work Phone: Start: 05-24-2023 Telephone encounter Sathya mcgee MD Work Phone: OB/Gynecology Procedures Date Procedure Procedure Detail Performing Clinician Start: 05-02-2023 Lipid 1996 panel - S nuria or Plasma Candy Coleman SURGICAL ELASTIC KNITTER HAND FRAME.BUDGET TECHNICIAN Work Phone: Start: 05-11-2022 PFIZER-BIONTECH COVI D-19 BIVALENT BOOSTER VACCINE, AGE 12+ YR Sherry Aquino SURGICAL ELASTIC KNITTER HAND FRAME.BUDGET TECHNICIAN Work Phone: Start: 05-09-2022 Mammography Sherry davis SURGICAL ELASTIC KNITTER HAND FRAME.BUDGET TECHNICIAN Work Phone: Start: 11-01-2021 Radex foot complete minimum 3 views Sherry Aquino SURGICAL ELASTIC KNITTER HAND FRAME.BUDGET TECHNICIAN Work Phone: Start: 11-01-2021 PFIZER-BIONTECH COVI D-19 VACCINE, AGE 12+ YR (DUKES TOP) Sherry Aquino SURGICAL ELASTIC KNITTER HAND FRAME.BUDGET TECHNICIAN Work Phone: Start: 11-11-2020 Adult depression scr eening assessment Carmelita Trevizo SURGICAL ELASTIC KNITTER HAND FRAME.BUDGET TECHNICIAN Work Phone: Start: 11-09-2020 Mammography Carmelita Trevizo SURGICAL ELASTIC KNITTER HAND FRAME.BUDGET TECHNICIAN Work Phone: Plan of Treatment Date Care Activity Detail Author Start: 06-24-2031 Urine microalbumin profile [facility] Start: 05-02-2028 Lipid panel Lipid Screening [facility] Start: 04-13-2028 Screening for malign ant neoplasm of cervix [facility] Start: 04-25-2027 LIPID SCREEN LIPID SCREEN [facility] Start: 06-29-2026 LIPID SCREEN LIPID SCREEN [facility] Start: 05-02-2026 Diabetes Screening Diabetes Screenin g [facility] Start: 04-25-2025 DIABETES SCREEN DIABETES SCREEN [facility] Start: 08-04-2024 LIPID SCREEN LIPID SCREEN [facility] Start: 06-29-2024 DIABETES SCREEN DIABETES SCREEN [facility] Start: 05-12-2024 Screening for malign ant neoplasm of breast Mammogram Screening [facility] Start: 04-13-2024 BP Controlled (<130/80) BP Controlle d (<130/80) [facility] Start: 05-11-2023 ANNUAL PCP TEAM BICYCLE SERVICE TECHNICIAN OMARI DISEASE VISIT ANNUAL PCP TEAM CHRONIC DISEASE VISIT [facility] Start: 05-11-2023 BP CONTROLLED (<130/80) BP CONTROLLE D (<130/80) [facility] Start: 05-09-2023 Mammography MAMMOGRAM [facility] Start: 05-09-2023 Screening for malign ant neoplasm of breast Mammogram Screening [facility] Start: 04-03-2023 Depression Assessment Depression Ass essment [facility] Start: 01-16-2023 HPV TESTING HPV TESTING [facility] Start: 01-16-2023 PAP TESTING PAP TESTING [facility] Start: 12-02-2022 Covid-19 Vaccine () Covid-19 Vaccine () [facility] Start: 11-01-2022 ANNUAL PCP TEAM BICYCLE SERVICE TECHNICIAN OMARI DISEASE VISIT ANNUAL PCP TEAM CHRONIC DISEASE VISIT [facility] Start: 11-01-2022 BP CONTROLLED (<130/80) BP CONTROLLE D (<130/80) [facility] Start: 08-04-2022 DIABETES SCREEN DIABETES SCREEN [facility] Start: 06-29-2022 COLORECTAL CANCER SCREENING COLORECTAL CANCER SCREENING [facility] Start: 06-29-2022 FECAL OCCULT BLOOD FECAL OCCULT BLOO D [facility] Start: 06-29-2022 Screening for malign ant neoplasm of colon [facility] Start: 06-23-2022 ANNUAL PCP TEAM BICYCLE SERVICE TECHNICIAN OMARI DISEASE VISIT ANNUAL PCP TEAM CHRONIC DISEASE VISIT [facility] Start: 06-23-2022 BP CONTROLLED (<130/80) BP CONTROLLE D (<130/80) [facility] Start: 06-23-2022 SHINGRIX VACCINE (1 of 2) COPE GRIX VACCINE (1 of 2) [facility] Immunizations Immunization Date Immunization Notes Care Provider Aren porter 05-11-2022 COVID-19 booster vaccine, age 12+ yr, bivalent (Lab42) Sherry Aquino SURGICAL ELASTIC KNITTER HAND FRAME.BUDGET TECHNICIAN Work Phone: [facility] 01-15-2022 influenza, injectabl e, quadrivalent, contains preservative Sherry Aquino SURGICAL ELASTIC KNITTER HAND FRAME.BUDGET TECHNICIAN Work Phone: [facility] 11-01-2021 COVID-19 vaccine, ag e 12+ yr (PFIZER-BIONTECH - DUKES TOP) Sherry Aquino SURGICAL ELASTIC KNITTER HAND FRAME.BUDGET TECHNICIAN Work Phone: [facility] 06-23-2021 tetanus toxoid, redu ganesh diphtheria toxoid, and acellular pertussis vaccine, adsorbed Carmelita Older SURGICAL ELASTIC KNITTER HAND FRAME.BUDGET TECHNICIAN Work Phone: [facility] 05-08-2020 COVID-19 vaccine, fu ll dose (MODERNA) Carmelita Older SURGICAL ELASTIC KNITTER HAND FRAME.BUDGET TECHNICIAN Work Phone: [facility] 04-10-2019 COVID-19 vaccine, fu ll dose (MODERNA) Carmelita Older SURGICAL ELASTIC KNITTER HAND FRAME.BUDGET TECHNICIAN Work Phone: [facility] Payers Date Payer Category Payer Unknown [id number] 2022 Unknown [id number] 2018 Private Health Insurance [facility] [employer] [id number] 2018-Present [phone] [place] [id number] [id number] 2018 Private Health Insurance [facility] [employer] [id number] 2018-Present [phone] [address] [place] [id number] O [id number] Social History Date Type Detail Facility Start: 09-15-2015 End: 04-13-2023 Tobacco smoking status NHIS Ex-smoker [facility] Work Phone: End: 01-22-1993 History of tobacco use Current smoker [facility] Work Phone: Start: 09-15-2015 End: 04-13-2023 Tobacco use and exposure Smokeless tobacco non-user [facility] Work Phone: Start: 06-23-2021 End: 05-22-2023 Alcohol intake Current drinker of alcohol (finding) [facility] Start: 11-11-2020 End: 06-22-2021 History SDOH Alcohol Frequency 2 [facility] Start: 11-11-2020 End: 06-22-2021 History SDOH Alcohol Std Drinks 1 [facility] Start: 09-15-2015 History SDOH Alcohol Comment Rarely [facility] Start: 11-11-2020 History SDOH Social Connections Phone 5 [facility] Start: 11-11-2020 History SDOH Social Connections [facility] 3 [facility] Start: 05-12-2019 Education 12 [facility] Start: 1965 Sex Assigned At Not on file [facility] Start: 08-14-2021 End: 11-01-2021 Exposure to SARS-CoV-2 (event) Not sure [facility] End: 01-22-1993 History of tobacco use Cigarette Smoker [facility] Start: 11-11-2020 End: 04-13-2023 History of Social function [facility] Start: 11-11-2020 End: 04-13-2023 Social connection and isolation panel [facility] Do you belong to any clubs or organizations such as rastafarian groups, unions, fraternal or athletic groups, or school groups? Yes [facility] Are you now , , , , never or living with a partner? [facility] How often to you hav e a drink containing alcohol? Monthly or less [facility] How many standard dr inks containing alcohol do you have on a typical day? 1 or 2 [facility] How often do you hav e 6 or more drinks on 1 occasion? Never [facility] How hard is it for y ou to pay for the very basics like food, housing, medical care, and heating Not hard at all [facility] Do you feel stress - tense, restless, nervous, or anxious, or unable to sleep at night because your mind is troubled all the time - these days [OSQ] Not at all [facility] (I/We) worried wheth er (my/our) food would run out before (I/we) got money to buy more. Never true [facility] In the past 12 month s, was there a time when you were not able to pay the mortgage or rent on time? No [facility] Start: 11-16-2018 Sexual orientation Heterosexual (finding) [facility] Clinical Notes 06-23-2021 to 05-26-2023 Telephone Encounter - Nicki Gregory RN - 05/26/2023 9:03 AM ESTTelephone Encounter - Sathya Anton MD - 05/25/2023 5:42 PM ESTTelephone Encounter - Nicki Gregory RN - 05/25/2023 8:24 AM EST Note Date & Type Note Facility 05-26-2023 Miscellaneous Notes Patient notified and transferred to [facility]. Lab results fax[facility] to [facility]. Nicki Gregory RN Order placed for EKG. Sorry I missed that the pt had labs with a [facility] provider on 05/02/23. Please fax those labs over to [facility]. Patient called office and notified of below. States she did leave message with billing department this morning and waiting their return call. She is also asking if her pre op lab work and EKG can be done at [facility] instead of [facility]? Please advise and order if okay. Nicki Gregory RN Left message for patient to call office. Also sent Mychart message. [facility] billing department called. Patient has surgery with SW on 06/01. [facility] is not contracted with her insurance. They have left her several messages to call them back. Jewel Hole Finish Opener stated that if patient does not call back by end of day on Monday, 05/29, her surgery will be cancelled. Camilla Shore RN documented in this encounter [facility] 05-22-2023 History and physical note DATE OF [...] Had 1 episode of PMB evaluated by BUDGET TECHNICIAN SOCIAL HISTORY: Social History Tobacco Use Smoking [...] 4 - Moderate documented in this encounter [facility] 05-15-2023 Miscellaneous Notes May 15, 2023 PID: [id number] Gabriela Gutierrez [address] [place] [id number] Dear Ms. Gutierrez, We are pleased to [...] report will be kept on file at [facility] as part of your permanent medical record and are available for your continuing care. Thank you for allowing us to help in meeting your health care needs. Sincerely, Dr. Santiago Interpreting Radiologist [facility] (Normal over 40) documented in this encounter [facility] 05-12-2023 Note HNO ID: [id number] Author: SUJEY DAUGHERTY RT(Izzy) Service: ? Author [...] PATIENT PRESENTS WITH AN IMPLANTABLE OR ATTACHED FLOTATION TENDER: No RADIOLOGY DEPARTMENT: Mammography PERIPHERAL IV DATA: Not applicable SIGNED BY: RT Ferdinand(Izzy) May 12, 2023 9:10 AM [facility] 05-12-2023 History of Present illness Narrative Radiology Service Progress Note PATIENT NAME: Gabriela Gutierrze DATE OF SERVICE: May 12, 2023 TIME: [...] PATIENT PRESENTS WITH AN IMPLANTABLE OR ATTACHED FLOTATION TENDER: No RADIOLOGY DEPARTMENT: Mammography PERIPHERAL IV DATA: Not applicable SIGNED BY: RT Ferdinand(Izzy) May 12, 2023 9:10 AM documented in this encounter [facility] 04-27-2023 Miscellaneous Notes Patient notified. Cancelled EMB [...] placed. Please assist in scheduling. Candy Coleman APRN.BUDGET TECHNICIAN documented in this encounter [facility] 04-27-2023 Note HNO ID: [id number] Author: XOCHILT NAM RDMS Service: ? Author Type: Financial Analyst Accountant Type: Progress Notes Filed: 04/27/2023 08:44 Note [...] Nam RDMS April 27, 2023 8:44 AM [facility] 04-13-2023 Note HNO ID: [id number] Author: CANDY COLEMAN APRN.CNP Service: ? 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 Author Type: Nurse Practitioner Type: [...] patient and she verbalizes understanding. Candy Coleman APRN.BUDGET TECHNICIAN [facility] 05-11-2022 Note HNO ID: [id number] Author: Sherry Aquino APRN.BUDGET TECHNICIAN Service: ? Author Type: Nurse Practitioner Type: [...] she is seeing opth Dr Panchal in [place] every 3 months. She is taking her [...] Neck: Vascular: N (more content not included)... [facility] 05-11-2022 Instructions Sherry Aquino APRN.[facility] - 05/11/2022 9:20 AM EST ASSESSMENT/PLAN: 1. Wellness examination - ICD9: V70.0, ICD10: Z00.00 (primary diagnosis) - Counseled on healthy diet and regular exercise - Calcium intake with supplements or by diet of 1000 mg/day for under 50, 1800-6162 mg/day for 50+ - Discussed need and [...] immunization - ICD9: V03.89, ICD10: Z23 - PFIZER-BIONTSciGit COVID-19 BIVALENT BOOSTER VACCINE, AGE 12+ YR - given today in office 6. Colon cancer screening - ICD9: V76.51, ICD10: Z12.11 - COLOGUARD Sherry Aquino APRN.BUDGET TECHNICIAN documented in this encounter [facility] 05-11-2022 History of Present illness Narrative [...] she is seeing opth Dr Panchal in [place] every 3 months. She is taking her [...] diet of 1000 mg/day for under 50, 1623-3704 mg/day for 50+ - Discussed need and [...] agrees to cologuard - COLOGUARD Sherry Aquino APRN.BUDGET TECHNICIAN documented in this encounter [facility] 05-10-2022 Miscellaneous Notes Called pt left VM with results Elle Melendez MA ----- Message from Sherry Aquino APRN.BUDGET TECHNICIAN sent at 05/10/2022 1:42 PM EST ----- Mammogram negative IMPRESSION IMPRESSION: NEGATIVE There is no mammographic evidence of malignancy. A 1 year screening mammogram is recommended. documented in this encounter [facility] 04-27-2022 Miscellaneous Notes Called pt let her know the results and for her to f/u with Dr. Mcginnis recommended she send her a my chart message Elle Melendez MA Called pt left VM for her to call the office for her lab results Elle Melendez MA ----- Message from Sherry Aquino APRN.BUDGET TECHNICIAN sent at 04/26/2022 7:06 AM EST ----- HGB A1C has increased. Still prediabetic but borderline diabetic now. Please review diet with pt and importance of exercise, wt loss, decrease portions sizes etc to slow progression to diabetes ----- Message from Sherry Aquino APRN.BUDGET TECHNICIAN sent at 04/25/2022 12:30 PM EST ----- BMP stable. Creatinine wnl Lipids- TC and LDL remain slighlty elevated but improved from last year Tsh is still very low. Follow up with Dr Mcginnis. documented in this encounter [facility] 02-03-2022 Miscellaneous Notes Last O V11/01/21 [...] Elle Melendez MA documented in this encounter [facility] 11-08-2021 Miscellaneous Notes Patient is informed. Crista Neely MA ----- Message from Sherry Aquino APRN.BUDGET TECHNICIAN sent at 11/04/2021 8:54 AM EDT ----- No fractures, mild arthritis No heel spurs identified. Most likely planter fasciitis as we discussed. Poc as we discussed at ov documented in this encounter [facility] 11-01-2021 Instructions Sherry Aquino APRN.BUDGET TECHNICIAN - 11/01/2021 9:03 AM EDT ASSESSMENT/PLAN: 1. [...] immunization - ICD9: V03.89, ICD10: Z23 - PFIZER-BIONTSciGit COVID-19 VACCINE, AGE 12+ YR (DUKES TOP) 4. Encounter for screening mammogram for malignant neoplasm of breast - ICD9: V76.12, ICD10: Z12.31 - MATTHEW SCREENING Sherry M Gabrielle, SURGICAL ELASTIC KNITTER HAND FRAME.BUDGET TECHNICIAN Plantar Fasciitis What is plantar fasciitis? Plantar [...] especially if you walk a lot or administrative technician shoes with poor cushioning. If the arches [...] and foot stretching exercises regularly. Developed by [employer]. Adult Advisor 2013.1 published by [employer]. Last modified: 2012-11-05 Last reviewed: 2012-10-19 This content is reviewed periodically and is subject to change as new health information becomes available. The information is intended to inform and educate and is not a replacement for medical evaluation, advice, diagnosis or treatment by a healthcare professional. References Adult Advisor 2014.1 Index Copyright 2014 [employer] and/or one of its subsidiaries. All rights [...] pickup: With your heel on the ground, apple picking supervisor a towel with your toes. Release. Repeat [...] Rest 30 seconds between sets. Developed by [employer]. Adult Advisor 2014.1 published by [employer]. Last modified: 2013-02-04 Last reviewed: 2011-08-02 This content is reviewed periodically and is subject to change as new health information becomes available. The information is intended to inform and educate and is not a replacement for medical evaluation, advice, diagnosis or treatment by a healthcare professional. References Adult Advisor 2013.1 Index Copyright 2014 [employer] and/or one of its subsidiaries. All rights reserved. documented in this encounter [facility] 11-01-2021 History of Present illness Narrative [...] Abs Lymph 1.00 - 4.00 k/uL 1.43 [place]% % 8.8 Abs [place] <0.87 k/uL 0.63 [place]% % 2.8 Abs [...] ICD10: Z12.31 - MATTHEW SCREENING Sherry Aquino APRN.BUDGET TECHNICIAN documented in this encounter [facility] 08-24-2021 Instructions Gertrudis Mcginnis MD - 08/24/2021 9:17 AM EDT Schedule thyroid ultrasound and radioactive iodine scan at [facility] Get thyroid labs drawn I will send you a message in my chart once the lab results become available Follow up in 3 months, this can be a virtual visit. documented in this encounter [facility] 08-24-2021 History of Present illness Narrative REFERRING PHYSICIAN: Carmelita Trevizo [address] [facility] [address] REASON FOR REFERRAL:Thyroid nodule My final recommendations [...] Mcginnis MD 08/24/21 documented in this encounter [facility] 07-09-2021 Miscellaneous Notes Called Patient to schedule NM scan but she states she wants to wait until after her ENDO appointment in [place] in August Please let patient know we are ordering her a scan of her thyroid and also additional lab work. Thank you Carmelita Trevizo APRN.FAUSTINO Tests were ordered Please assist patient is getting her the apts. documented in this encounter [facility] 07-08-2021 History of Present illness Narrative Manual [...] Rosanna Hurd LPN documented in this encounter [facility] 06-23-2021 History of Present illness Narrative CC: [...] as prescribed. Sees an eye doctor in [place] every 3 months. No change in vision [...] Carmelita Trevizo APRN.CNP documented [facility] encounter [facility] Essential hypertension with goal blood pressure less than 140/90- Primary [facility] Diagnosis Hyperthyroidism- Primary Thyrotoxicosis without mention of goiter or other cause, without mention of thyrotoxic crisis or storm [facility] Diagnosis Multiple thyroid nodules Nontoxic multinodular goiter Subclinical hyperthyroidism Thyrotoxicosis without mention of goiter or other cause, without mention of thyrotoxic crisis or storm [facility] Diagnosis Right foot pain- Primary Pain in limb Essential hypertension with goal blood pressure less than 140/90 Encounter for immunization Need for other specified prophylactic vaccination against single bacterial disease Encounter for screening mammogram for malignant neoplasm of breast Other screening mammogram [facility] Diagnosis Right foot pain Pain in limb [facility] Diagnosis Essential hypertension with goal blood pressure less than 140/90 documented in this encounter [facility] note* Diagnosis Essential hypertension with goal blood pressure less than 140/90 Morbid obesity (HCC) Morbid obesity Subclinical hyperthyroidism Thyrotoxicosis without mention of goiter or other cause, without mention of thyrotoxic crisis or storm documented in this encounter [facility] note* Diagnosis Wellness examination- Primary Essential hypertension with goal blood pressure less than 140/90 Multiple thyroid nodules Nontoxic multinodular goiter Subclinical hyperthyroidism Thyrotoxicosis without mention of goiter or other cause, without mention of thyrotoxic crisis or storm Encounter for immunization Need for other specified prophylactic vaccination against single bacterial disease Colon cancer screening Special screening for malignant neoplasms, colon documented in this encounter [facility] note* Diagnosis Ovarian cyst, right- Primary Other and unspecified ovarian cyst documented in this encounter [facility] note* Diagnosis Encounter for screening mammogram for malignant neoplasm of breast Other screening mammogram documented in this encounter [facility] note* Diagnosis PMB (postmenopausal bleeding)- Primary Postmenopausal bleeding Thickened endometrium Nonspecific (abnormal) findings on radiological and other examination of genitourinary organs Class 3 severe obesity with body mass index (BMI) of 40.0 to 44.9 in adult, unspecified obesity type, unspecified whether serious comorbidity present (HCC) Pre-op exam Preoperative examination, unspecified documented in this encounter [facility] note* Diagnosis Pre-op exam- Primary Preoperative examination, unspecified Class 3 severe obesity with body mass index (BMI) of 40.0 to 44.9 in adult, unspecified obesity type, unspecified whether serious comorbidity present (HCC) History of hypertension Personal history of other diseases of circulatory system documented in this encounter [facility] (narrative)* Diagnostic Procedure Only (Routine) - Pending Review Specialty Diagnoses / Procedures Referred By Virgen t Referred To Contact MOLECULAR & FUNCTIONAL IMAGING Diagnoses Hyperthyroidism Procedures NM THY UPTAKE AND SCAN THYROID UPTAKE W/BLOOD FLOW SNGLE/MULT Sylvia Murillo MD [address] [place] [address] Molecular & Functional Imaging [address] [place] [address] Referral ID Status Reason Start Date Expiration Date Visits Requested Visits Authorized [id number] Pending Review Auto-Generat ed Referral 07/02/2021 08/01/2022 1 1 [facility] (narrative)* Diagnostic Procedure Only (Routine) - Pending Review Specialty Diagnoses / Procedures Referred By Contac t Referred To Contact US IMAGING Diagnoses Multiple thyroid nodules Procedures US THYROID/PARATHYROID US SOFT TISSUE HEAD & NECK REAL TIME IMGE Gertrudis Ferrera MD [address] [address] Us Imaging Referral ID Status Reason Start Date Expiration Date Visits Requested Visits Authorized [id number] Pending Review Auto-Generat ed Referral 08/24/2021 09/23/2022 1 1 [facility] (narrative)* Diagnostic Procedure Only (Routine) - Closed Specialty Diagnoses / Procedures Referred By Contac t Referred To Contact XR IMAGING Diagnoses Right foot pain Procedures XR FOOT GENERAL 3V AP/LAT/OBL RIGHT RADEX FOOT COMPLETE MINIMUM 3 VIEWS Sherry Aquino APRN.BUDGET TECHNICIAN [address] [place] [address] Xr Imaging Referral ID Status Reason Start Date Expiration Date V isits Requested Visits Authorized [id number] Closed Auto-Generate d Referral 11/01/2021 12/01/2022 1 1 [facility] (narrative)* Diagnostic Procedure Only (Routine) - Pending Review Specialty Diagnoses / Procedures Referred By Contac t Referred To Contact US IMAGING Diagnoses Ovarian cyst, right Procedures US FEMALE PELVIS TRANSVAG US TRANSVAGINAL Candy Coleman APRN.BUDGET TECHNICIAN [address] [place] [address] [facility] [address] Referral ID Status Reason Start Date Expiration Date Visits Requested Visits Authorized [id number] Pending Review Auto-Generat ed Referral 04/27/2023 05/26/2024 1 1 [facility] for referral (narrative)* Outpatient Procedure (Routine) - [...] ROUTINE ECG W/LEAST 12 LDS W/I&R Sathya Anton MD [address] [place] [address] [facility] [place] [address] [place] [address] Referral ID Status Reason Start Date Expiration Date Visits Requested Visits Authorized [id number] Pending Review Auto-Generat ed Referral 05/25/2023 05/24/2024 1 1 [facility] for visit Narrative* Diagnostic Procedure Only (Routine) - Closed Specialty Diagnoses / Procedures Referred By Virgen t Referred To Contact XR IMAGING Diagnoses Right foot pain Procedures XR FOOT GENERAL 3V AP/LAT/OBL RIGHT RADEX FOOT COMPLETE MINIMUM 3 VIEWS Sherry Aquino APRN.BUDGET TECHNICIAN [address] [place] [address] Xr Imaging Referral ID Status Reason Start Date Expiration Date V isits Requested Visits Authorized [id number] Closed Auto-Generate d Referral 11/01/2021 12/01/2022 1 1 [facility] Narrative* Diagnostic Procedure Only (Routine) - Closed Specialty Diagnoses / Procedures Referred By Virgen t Referred To Contact Radiology / [facility] Diagnoses Encounter for screening mammogram for breast cancer Procedures SCREENING MAMMOGRAPHY BI 2-VIEW BREAST INC CAD MAMMOGRAM SCREENING Candy Coleman APRN.BUDGET TECHNICIAN [address] [place] [address] Radio Mammo [facility] [address] [place] [address] Referral ID Status Reason Start Date Expiration Date Visits Re quested Visits Authorized [id number] Closed 05/12/2023 04/02/2024 1 1 [facility] Reason for Referral Specialty Diagnoses / Procedures Referred By Contac t Referred To Contact Endocrinology Diagnoses Multiple thyroid nodules Subclinical hyperthyroidism Procedures CONSULT TO ENDOCRINOLOGY OFFICE/OUTPATIENT [facility] MDM 60-74 MINUTES Older, HEIDI MaeN.BUDGET TECHNICIAN [address] [place] [address] Referral ID Status Reason Start Date Expiration Date Visits Requested Visits Authorized [id number] Pending Review PCP Requested Referral 06/23/2021 06/23/2022 1 1 Specialty Diagnoses / Procedures Referred By Contac t Referred To Contact Podiatry Diagnoses Right foot pain Procedures CONSULT TO PODIATRY Sherry Aquino, SURGICAL ELASTIC KNITTER HAND FRAME.BUDGET TECHNICIAN [address] [place] [address] Jacob Kan [address] [place] [address] Referral ID Status Reason Start Date Expiration Date Visits Requested Visits Authorized [id number] Ref Not Required PCP Requested Referral 11/01/2021 01/30/2022 3 3 Specialty Diagnoses / Procedures Referred By Contac t Referred To Contact XR IMAGING Diagnoses Right foot pain Procedures XR FOOT GENERAL 3V AP/LAT/OBL RIGHT RADEX FOOT COMPLETE MINIMUM 3 VIEWS Sherry Aquino SURGICAL ELASTIC KNITTER HAND FRAME.BUDGET TECHNICIAN [address] [place] [address] Xr Imaging Referral ID Status Reason Start Date Expiration Date V isits Requested Visits Authorized [id number] Closed Auto-Generate d Referral 11/01/2021 12/01/2022 1 1 Specialty Diagnoses / Procedures Referred By Contac t Referred To Contact BR IMAGING Diagnoses Encounter for screening mammogram for malignant neoplasm of breast Procedures MATTHEW SCREENING SCREENING MAMMOGRAPHY BI 2-VIEW BREAST INC Sherry Mcdaniel, SURGICAL ELASTIC KNITTER HAND FRAME.BUDGET TECHNICIAN [address] [place] [address] [facility] [address] [place] [address] Referral ID Status Reason Start Date Expiration Date Visits Requested Visits Authorized [id number] Pending Review Auto-Generat ed Referral 11/01/2021 12/01/2022 [...] or prosecute any alcohol or drug abuse patient.[facility] the event this information is protected by the Federal Confidentiality of Alcohol and Drug Abuse Patient Records regulations: The Federal rules restrict any use of the information to criminally investigate or prosecute any alcohol or drug abuse patient.[facility] the event this information is protected by the Federal Confidentiality of Alcohol and Drug Abuse Patient Records regulations: The Federal rules restrict any use of the information to criminally investigate or prosecute any alcohol or drug abuse patient.[facility] the event this information is protected by the Federal Confidentiality of Alcohol and Drug Abuse Patient Records regulations: The Federal rules restrict any use of the information to criminally investigate or prosecute any alcohol or drug abuse patient.[facility] the event this information is protected by the Federal Confidentiality of Alcohol and Drug Abuse Patient Records regulations: The Federal rules restrict any use of the information to criminally investigate or prosecute any alcohol or drug abuse patient.[facility] the event this information is protected by the Federal Confidentiality of Alcohol and Drug Abuse Patient Records regulations: The Federal rules restrict any use of the information to criminally investigate or prosecute any alcohol or drug abuse patient.[facility] the event this information is protected by the Federal Confidentiality of Alcohol and Drug Abuse Patient Records regulations: The Federal rules restrict any use of the information to criminally investigate or prosecute any alcohol or drug abuse patient.[facility] the event this information is protected by the Federal Confidentiality of Alcohol and Drug Abuse Patient Records regulations: The Federal rules restrict any use of the information to criminally investigate or prosecute any alcohol or drug abuse patient.[facility] the event this information is protected by the Federal Confidentiality of Alcohol and Drug Abuse Patient Records regulations: The Federal rules restrict any use of the information to criminally investigate or prosecute any alcohol or drug abuse patient.[facility] the event this information is protected by the Federal Confidentiality of Alcohol and Drug Abuse Patient Records regulations: The Federal rules restrict any use of the information to criminally investigate or prosecute any alcohol or drug abuse patient.[facility] the event this information is protected by the Federal Confidentiality of Alcohol and Drug Abuse Patient Records regulations: The Federal rules restrict any use of the information to criminally investigate or prosecute any alcohol or drug abuse patient.[facility] the event this information is protected by the Federal Confidentiality of Alcohol and Drug Abuse Patient Records regulations: The Federal rules restrict any use of the information to criminally investigate or prosecute any alcohol or drug abuse patient.[facility] the event this information is protected by the Federal Confidentiality of Alcohol and Drug Abuse Patient Records regulations: The Federal rules restrict any use of the information to criminally investigate or prosecute any alcohol or drug abuse patient.[facility] the event this information is protected by the Federal Confidentiality of Alcohol and Drug Abuse Patient Records regulations: The Federal rules restrict any use of the information to criminally investigate or prosecute any alcohol or drug abuse patient.[facility] the event this information is protected by the Federal Confidentiality of Alcohol and Drug Abuse Patient Records regulations: The Federal rules restrict any use of the information to criminally investigate or prosecute any alcohol or drug abuse patient.[facility] the event this information is protected by the Federal Confidentiality of Alcohol and Drug Abuse Patient Records regulations: The Federal rules restrict any use of the information to criminally investigate or prosecute any alcohol or drug abuse patient.[facility] the event this information is protected by the Federal Confidentiality of Alcohol and Drug Abuse Patient Records regulations: The Federal rules restrict any use of the information to criminally investigate or prosecute any alcohol or drug abuse patient.[facility] Reason for Visit (unrecogniz ed section and content) Reason Comments Blood Pressure Check Reason Comments Results Reason Comments Consult Specialty Diagnoses / Procedures Referred By Contac t Referred To Contact Endocrinology Diagnoses Multiple thyroid nodules Subclinical hyperthyroidism Procedures CONSULT TO ENDOCRINOLOGY OFFICE/OUTPATIENT NEW HIGH MDM 60-74 MINUTES Carmelita Trevizo APRN.BUDGET TECHNICIAN [address] [place] [address] Referral ID Status Reason Start Date Expiration Date Visits Requested Visits Authorized [id number] Pending Review PCP Requested Referral 06/23/2021 06/23/2022 1 1 Reason Comments Pain (foot) Establish Care Reason Comments Results Reason Onset Date Comments Refill Request 02/03/2022 Specialty Diagnoses / Procedures Referred By Contac t Referred To Contact Internal Medicine / INTERNAL MEDICINE Diagnoses Follow-up exam WELLNESS Procedures OFFICE/OUTPATIENT ESTABLISHED MOD MDM 30-39 MIN 4C EST WELL Self Sherry Aquino, SURGICAL ELASTIC KNITTER HAND FRAME.BUDGET TECHNICIAN [address] [place] [address] Referral ID Status Reason Start Date Expiration Date Visits Re quested Visits Authorized [id number] Closed 04/03/2022 08/09/2022 1 1 Reason Comments Pre-Op Visit Specialty Diagnoses / Procedures Referred By Contac t Referred To Contact Clinical Resource Nurse / CAR WASH ATTENDANT Diagnoses Encounter for screening for malignant neoplasm of cervix surgery @[facility] Procedures OFFICE/OUTPATIENT ESTABLISHED MOD MDM 30 MIN PRE OP Self Sathya Anton MD [address] [place] [address] Referral ID Status Reason Start Date Expiration Date Visits Re quested Visits Authorized [id number] Closed 05/22/2023 04/02/2024 1 1 Reason Comments Preparations For Surgery Care Teams (unrecognized sec tion and content) Two Needle Machine Operator Relationship Specialty Start Date End Date Sylvia Lawson MD [address] [place] [address] PCP - General Internal Medicine 02/02/16 Two Needle Machine Operator Relationship Specialty Start Date End Date Sylvia Lawson MD [address] [place] [address] PCP - General Internal Medicine 02/02/16 Two Needle Machine Operator Relationship Specialty Start Date End Date Sylvia Lawson MD [address] [place] [address] PCP - General Internal Medicine 02/02/16 Two Needle Machine Operator Relationship Specialty Start Date End Date Sherry Aquino, SURGICAL ELASTIC KNITTER HAND FRAME.BUDGET TECHNICIAN [address] [place], [place] [id number] PCP - General Internal Medicine 11/01/21 Two Needle Machine Operator Relationship Specialty Start Date End Date Sherry Aquino, SURGICAL ELASTIC KNITTER HAND FRAME.BUDGET TECHNICIAN [address] [place] [address] PCP - General Internal Medicine 11/01/21 Two Needle Machine Operator Relationship Specialty Start Date End Date Sherry Aquino, SURGICAL ELASTIC KNITTER HAND FRAME.BUDGET TECHNICIAN [address] [place] [address] PCP - General Internal Medicine 11/01/21 Two Needle Machine Operator Relationship Specialty Start Date End Date Sherry Aquino, SURGICAL ELASTIC KNITTER HAND FRAME.BUDGET TECHNICIAN [address] [place] [address] PCP - General Internal Medicine 11/01/21 Two Needle Machine Operator Relationship Specialty Start Date End Date Sherry Aquino, SURGICAL ELASTIC KNITTER HAND FRAME.BUDGET TECHNICIAN [address] [place] [address] PCP - General Internal Medicine 11/01/21 Two Needle Machine Operator Relationship Specialty Start Date End Date Sherry Aquino, SURGICAL ELASTIC KNITTER HAND FRAME.BUDGET TECHNICIAN [address] [place] [address] PCP - General Internal Medicine 11/01/21 Two Needle Machine Operator Relationship Specialty Start Date End Date Sherry Aquino, SURGICAL ELASTIC KNITTER HAND FRAME.BUDGET TECHNICIAN [address] [place] [address] PCP - General Internal Medicine 11/01/21 Two Needle Machine Operator Relationship Specialty Start Date End Date Sherry Aquino, SURGICAL ELASTIC KNITTER HAND FRAME.BUDGET TECHNICIAN [address] [place] [address] PCP - General Internal Medicine 11/01/21 Rodrigo Panchal [address] [place], [place] [id number] Optometry 05/11/22 Gertrudis Mcginnis MD [address] [address] Endocrinology 05/11/22 Two Needle Machine Operator Relationship Specialty Start Date End Date Candy Dominguez, SURGICAL ELASTIC KNITTER HAND FRAME.BUDGET TECHNICIAN [address] [facility] [address] [place] [address] PCP - General Cardiology 04/07/23 Rodrigo Panchal [address] [place] [address] Optometry 05/11/22 Gertrudis Mcginnis MD [address] [address] Endocrinology 05/11/22 Two Needle Machine Operator Relationship Specialty Start Date End Date Candy Dominguez, SURGICAL ELASTIC KNITTER HAND FRAME.BUDGET TECHNICIAN [address] [facility] [address] [place] [address] PCP - General Cardiology 04/07/23 Rodrigo Panchal [address] [place] [address] Optometry 05/11/22 eGrtrudis Mcginnis MD [address] [address] Endocrinology 05/11/22 Two Needle Machine Operator Relationship Specialty Start Date End Date Candy Dominguez, SURGICAL ELASTIC KNITTER HAND FRAME.BUDGET TECHNICIAN [address] [facility] [address] [place] [address] PCP - General Cardiology 04/07/23 Rodrigo Panchal [address] [place] [address] Optometry 05/11/22 Gertrudis Mcginnis MD [address] [address] Endocrinology 05/11/22 Two Needle Machine Operator Relationship Specialty Start Date End Date Candy Dominguez, SURGICAL ELASTIC KNITTER HAND FRAME.BUDGET TECHNICIAN [address] [facility] [address] [place] [address] PCP - General Cardiology 04/07/23 Rodrigo Panchal [address] [place], [place] [id number] Optometry 05/11/22 Gertrudis Mcginnis MD [address] [address] Endocrinology 05/11/22 Two Needle Machine Operator Relationship Specialty Start Date End Date Candy Dominguez, SURGICAL ELASTIC KNITTER HAND FRAME.BUDGET TECHNICIAN [address] [facility] [address] [place] [address] PCP - General Cardiology 04/07/23 Rodrigo Panchal [address] [place] [address] Optometry 05/11/22 Gertrudis Mcginnis MD [address] [address] Endocrinology 05/11/22 INFORMATION SOURCE (unrecogn ized section and content) DATE CREATED AUTHOR AUTHOR'S ASUNCION ATION 05/22/2023 [facility] FOR RECORDS PERTAINING TO PATIENTS WHO ARE [...] BE BASED ON THE PRIMARY CLINICAL RECORDS. [facility] [employer] [facility]. provides no warranty or guarantee of the accuracy or completeness of information in this document.
--- NOTE | 2023-06-01 07:39 | PCM.HP.BLA ---
History and Physical Date of Admission: 06/01/23 PROBLEM: PMB ? DIAGNOSIS: PMB ? PAST SURGICAL HISTORY: PAST SURGICAL HISTORYExpand by Default PAST SURGICAL HISTORY Procedure Laterality Date ? LAMINECTOMY W/O FFD 04/04 VERT SEG LUMBAR ? 1991 ? Laminectomy, lumbar ? S PROBE PERC LUMBAR DISCECTOMY ? 1991 ? ? PAST MEDICAL HISTORY: PAST MEDICAL HISTORYExpand by Default PAST MEDICAL HISTORY Diagnosis Date ? Disorder of thyroid ? ? Glaucoma ? ? Herniated lumbar disc without myelopathy ? ? Hypertension ? ? ? 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 SOCIAL HISTORY: SOCIAL HISTORYExpand by Default Social History ? Tobacco Use ? Smoking status: Former ? ? Types: Cigarettes ? ? Quit date: 01/22/1993 ? ? Years since quittin.3 ? Smokeless tobacco: Never Vaping Use ? Vaping Use: Never used Substance Use Topics ? Alcohol use: Yes ? ? Comment: Rarely ? Drug use: No ? ? ALLERGIESExpand by Default ALLERGIES Allergen Reactions ? Daypro [Oxaprozin] Hives ? Erythromycin Hives ? Penicillins Hives ? Current Outpatient Medications on File Prior to Visit Medication Sig ? dorzolamide (TRUSOPT) 2 % ophthalmic solution Use 1 Drop in the right eye two times a day. ? estradiol (ESTRACE) 0.01 % (0.1 mg/gram) vaginal cream Use 1 g vaginally daily for two weeks. Then twice a week. ? miSOPROStol (CYTOTEC) 200 mcg tablet Insert two tablets vaginally 4-6 hours prior to the procedure. ? hydroCHLOROthiazide (HYDRODIURIL, ESIDRIX) 12.5 mg capsule Take 1 capsule by mouth once daily. ? lisinopril (ZESTRIL, PRINIVIL) 40 mg tablet Take 1 tablet by mouth once daily. ? brimonidine (ALPHAGAN) 0.2 % ophthalmic solution Use as directed. ? timolol maleate (TIMOPTIC) 0.25 % ophthalmic solution Use as directed ? latanoprost (XALATAN) 0.005 % ophthalmic solution Use 1 Drop in both eyes daily at bedtime. TO AFFECTED EYE(S) ? No current facility-administered medications on file prior to visit. ? Pelvic US: IMPRESSION: Endometrium is thick, irregular, heterogeneous and vascular. ?Neoplasm cannot be excluded. ?Cervical solid focus may represent polyp or extension of uterine process. ?Recommend consideration for endometrial biopsy. Small amount of free pelvic fluid Uterine fibroids. Complex right ovarian cyst ?is O-RADS category 2 ,almost certainly benign . ?Nonvascular. ?Follow-up in 6-12 weeks. ? ? OBJECTIVE: ? VITALS: BP 130/72 Pulse 88 Resp 18 Ht 5' 5 (1.651 m) Wt 245 lb (111.1 kg) BMI 40.77 kg/m? ? HEENT: Normocephalic, atraumatic, Mucus membranes moist without lesions. ? NECK: Soft and Supple. No adenopathy , thyromegaly or bruits. ? SKIN: No lesions. ? CHEST: No increased respiratory effort. ? HEART: Regular rate. ? ABDOMEN: Soft, non-distended. ? LOWER EXTREMITIES: There was no pitting edema, no palpable cords and no skin changes. ? ? ? ASSESSMENT: pre op, PMB, thickened endometrium ? PLAN: 1) Discussed r/b/a hysteroscopy, D&C, possible polypectomy. The rationale for the proposed surgery was discussed in addition to risks, benefits, and alternatives. General pre- and post-operative care was reviewed. Questions were answered. After discussion, the patient indicated a desire to proceed with the planned surgery. ? Obdulia Anton, DO Assessment & Plan Assessment/Plan (1) Post-menopausal bleeding:
[2023-06-01] MEDS: Lidocaine 1%/Epi 1:200 (30ml) 30 ML AMPUL (07:59)
--- NOTE | 2023-06-01 08:18 | PCM.OPRPT ---
Problems Associated Problem List Diagnoses (1) Post-menopausal bleeding:
--- NOTE | 2023-06-01 08:18 | PCM.DC ---
Discharge Instructions Diet Discharge Diet: No restrictions Activity Discharge Activity: May Drive (once you are more than 24 hours out from surgery) and May Shower (once you are more than 24 hours out from surgery) May resume sexual activity in: 1 week (nothing in the vagina and no soaking in water for 1 week) Weight Bearing Status: Weight bearing as tolerated Lifting Restrictions: none Dressing / Incision Call your doctor if you observe: Fever of 101 or Higher, Coldness, Increased Pain, Numbness or Tingling, Change in Color, Inability to urinate, Inability to have a bowel movement, Using more than 1 pad per hour, Shortness of breath, Dizziness, Fainting spells, Swelling in the ankles, Chest pain, Increased palpitations (irregular heartbeat), Calf discomfort and Uncontrolled pain Follow Up Care Please Follow Up With: Obdulia Anton DO When: 1-2 week post operative appointment Test Results: Test results from this visit will be discussed in further detail at your follow-up appointment, if applicable. Discharge Plan Admission Primary Reason for Your Visit: surgery Attending Provider: Obdulia Anton Primary Care Provider: Candy Dominguez Instructions Patient Instructions: Dilation and Curettage Discharge Orders/Prescriptions Prescriptions: Continued timolol maleate 0.5 % drops 1 drp ophthalmic (eye) BID Patient Comments: instill 1 (ONE) drop TWICE DAILY into both eyes brimonidine 0.2 % drops 1 drp ophthalmic (eye) BID Patient Comments: instill 1 (ONE) DROP IN BOTH EYES TWICE DAILY latanoprost 0.005 % drops 1 drp ophthalmic (eye) DAILY Patient Comments: instill 1 (ONE) DROP IN BOTH EYES EVERY EVENING AT BEDTIME dorzolamide 2 % drops 1 drp ophthalmic (eye) BID Patient Comments: 1 (ONE) DROP TWICE DAILY IN THE RIGHT EYE omega [id number] oil [Fish Oil] 60-90-500 mg capsule 1 cap PO DAILY ferrous sulfate [Feosol] 325 mg (65 mg iron) tablet 325 mg PO DAILY multivitamin Tablet 1 tab PO DAILY hydrochlorothiazide 12.5 mg capsule 12.5 mg PO DAILY 30 Days Qty: 30 1RF lisinopril 40 mg tablet 40 mg PO QHS Other Ambulatory Orders: CBC-Complete Blood Cnt No Diff (Routine) Timeframe: 20230601 Facility: [facility] - Location: Laboratory Ordered By: Dr. Obdulia Anton Comprehensive Metabolic Profil (Routine) Timeframe: 20230601 Facility: [facility] - Location: Laboratory Ordered By: Dr. Obdulai Anton Referrals / Follow Up: Candy Dominguez NP-C [Primary Care Provider] - Disposition Disposition (needs filled in before D/C Order can be placed): Home, Self Care
--- NOTE | 2023-06-01 08:21 | PCM.OPRPT ---
Problems Associated Problem List Diagnoses (1) Post-menopausal bleeding: Report of Operation Date of Procedure: 06/01/23 Pre-Operative Diagnosis: PMB Post-Operative Diagnosis: PMB Surgery/Procedure Performed:: EUA, attempted hysteroscopy, endometrial biopsy Description of Surgical Findings:: Narrow introitus. Stenotic cervix. Atrophic vagina. 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 The patient was prepped and draped in the dorsal lithotomy position using yellowfin stirrups. A weighted speculum was placed in the vagina to expose the cervix. The anterior lip of the cervix was grasped with a single-tooth tenaculum. Local anesthetic was infiltrated circumferentially in the cervix. The cervix was attempted to be dilated. The external os was dilated, but the internal os remained stenotic. The hysteroscope was placed in the endocervical canal in an attempt to hydrodilate the remaining cervix. The cervix was unable to be completely dilated after multiple attempts were made and Cytotec was given pre operatively. The uterine sound was advanced to 5 cm. An endometrial Pipelle was used to collect a scant specimen. The endometrial biopsy specimen was sent to pathology for review. Bleeding was hemostatic. All instruments were removed from the vagina. A vaginal sweep was performed. Sponge counts were correct. The patient was taken to the recovery in stable condition. Grafts/Implants Used: None Complications None Admit VTE Documentation VTE Present on Admission: No VTE Mechan Device Prophylaxis: SCD's
== END 2023-06-01 09:50 | disposition home or self-care (01) ==
LOC: AC 06:51 → SDC 06:54
PROVIDERS: PCP Nurse Practitioner; Referring Provider Obstetrics & Gynecology; Visit Provider Obstetrics & Gynecology
PROC: 0UB98ZZ Excision of Uterus, Via Natural or Artificial Opening Endoscopic (ICD-10-PCS; CPT 58558; principal; 2023-06-01 07:15)
DX: N72 Inflammatory disease of cervix uteri (principal); N95.0 Postmenopausal bleeding; I10 Essential (primary) hypertension; Z87.891 Personal history of nicotine dependence; Z79.899 Other long term (current) drug therapy; N88.2 Stricture and stenosis of cervix uteri; N95.2 Postmenopausal atrophic vaginitis
CPT/HCPCS: 58558; 00952; 86850; 86900; 86901; 88305; J7120; J2405